=== PATIENT | male | born 1955 | race Caucasian/White ===

== ENCOUNTER 2016-06-12 17:06 | Inpatient (IN) | payer OTHER ==
[~2016-06-12] VITALS: Ht 175.3 cm; Wt 74.0 kg
[2016-06-12 18:47] LABS: BASO % 0.2 %; BASO ABS # 0.02 K/uL (0-0.2); COMPLETE YES; EOS % 0.6 %; HEMATOCRIT 36.5 % (42-52); IG% 0.2 %; LYMPH % 11.5 %; LYMPH ABS # 1.44 K/uL (1.2-3.4); MEAN CELL VOLUME 87.5 fL (80-100); MEAN CORPUSCULAR HEMOGLOBIN 28.1 pg (25-34); MEAN CORPUSCULAR HGB CONC 32.1 g/dl (32-36); MEAN PLATELET VOLUME 10.6 fL (7.4-10.4); MONO % 7.5 %; PLATELET COUNT 231 K/uL (130-400); RED BLOOD COUNT 4.17 M/uL (4.7-6.1); WHITE BLOOD COUNT 12.47 K/uL (4.8-10.8)
[2016-06-12 18:54] LABS: BLOOD UREA NITROGEN 25 mg/dl (7-18); BUN/CREATININE RATIO 23.1 (10-20); CALCIUM 11.1 mg/dl (8.5-10.1); CARBON DIOXIDE 31 mmol/L (21-32); CHLORIDE 102 mmol/L (98-107); GLUCOSE 113 mg/dl (70-99); POTASSIUM 4.3 mmol/L (3.5-5.1); SODIUM 140 mmol/L (136-145)
--- NOTE | 2016-06-12 19:02 | DIAGNOSTIC IMAGING REPORT ---
CHEST ONE VIEW PORTABLE CLINICAL HISTORY: Chest Pain dyspnea COMPARISON STUDY: None Findings Mild cardiomegaly. Prior median sternotomy. Lungs are clear. IMPRESSION: Negative chest. Electronically signed by: James Deutsch M.D. 06/12/2016 7:01 PM Dictated Date/Time: 06/12/2016 7:00 PM
[2016-06-12] MEDS ORDERED: OPTIRAY 320 IV PRN (19:15)
[2016-06-12] MEDS ORDERED: CETI10TA84 PO (19:32)
[2016-06-12] MEDS ORDERED: SERT-234 PO (19:32)
[2016-06-12] MEDS ORDERED: FRS/40 PO (19:32)
[2016-06-12] MEDS ORDERED: BUPR150T5 PO (19:32)
[2016-06-12] MEDS ORDERED: ATOR-24 PO (19:32)
[2016-06-12] MEDS ORDERED: PSEU60TA80 PO (19:32)
[2016-06-12] MEDS ORDERED: FLUT1INH INH (19:32)
[2016-06-12] MEDS ORDERED: PRVHFAIN INH (19:32)
[2016-06-12] MEDS ORDERED: ALBINS NEB (19:32)
[2016-06-12] MEDS ORDERED: POTA20TA13 PO (19:32)
[2016-06-12] MEDS ORDERED: PLV75 PO (19:32)
[2016-06-12] MEDS ORDERED: METO25TA56 PO (19:32)
[2016-06-12] MEDS ORDERED: OMEP40CA41 PO (19:32)
[2016-06-12] MEDS ORDERED: ASPI81TA28 PO (19:32)
--- NOTE | 2016-06-12 19:55 | DIAGNOSTIC IMAGING REPORT ---
CHEST CTA for PULMONARY ARTERIES CT DOSE: 364.65 mGy.cm HISTORY: Chest pain dyspnea TECHNIQUE: Multiaxial CT images of the chest were performed following the intravenous administration of contrast to evaluate the pulmonary arteries. Maximal intensity projection images were also obtained. COMPARISON STUDY: None. FINDINGS: There is a normal caliber thoracic aorta with no evidence for dissection. There is no evidence for pulmonary embolus. No pleural effusions. No pneumothorax. The liver and spleen are unremarkable. No mediastinal or hilar lymphadenopathy. The central airways are patent. Mild bibasilar atelectatic change. Mild apical pleural fibrotic change. IMPRESSION: No evidence for pulmonary embolus. Prior median sternotomy. Lungs are grossly clear. Electronically signed by: James Deutsch M.D. 06/12/2016 7:52 PM Dictated Date/Time: 06/12/2016 7:51 PM
[2016-06-12] MEDS ORDERED: ASPIRIN 324 MG CHEW PO STA (20:13)
[2016-06-12] MEDS ORDERED: GI COCKTAIL PO ONE (20:15)
[2016-06-12] MEDS ORDERED: ALUMINUM/MAGNESIUM/SIMETH (MAALOX MAX) 30 ML UDC ONE (20:59)
[2016-06-12] MEDS ORDERED: LIDOCAINE HCL 2% VISC SOLN 20 ML UDC ONE (20:59)
--- NOTE | 2016-06-12 22:53 | History and Physical ---
History & Physical Date & Time of Service: Jun 12, 2016 at 22:52 Chief Complaint: Triple Bypass 06/01, Wheezing, Sob, Chest Pain Primary Care Physician: Ben Tavarez MD History of Present Illness Source: patient The patient is a 60-year-old male who underwent a CABG 3 on 05/01/2016 at the [facility] in [place]. He reports that he started developing a cough and shortness of breath about 2 days ago when exposed to his who has a bronchitis, and reports that the shortness of breath is similar to what led to his bypass surgery. He is a former smoker. He recently saw his PCP for worsening reflux symptoms and was started on Prilosec. He has a questionable diagnosis of COPD. The patient was referred to the emergency department tonight by his cardiothoracic surgeon Dr. Bernal. He has had intermittent swelling in the right leg where the vein harvesting was performed, for which he has been kept on Lasix. Social History Smoking Status: Former Smoker Smokeless Tobacco Use: No Alcohol Use: none Drug Use: none Multi-Drug Resistant Organisms History of MDRO: No Allergies Uncoded Allergies: LATEX-NO (Allergy, Unknown, 05/23/02) N (Allergy, Unknown, 04/06/02) NKDA (Allergy, Unknown, 04/06/02) Home Medications Scheduled Aspirin (Aspirin Ec), 81 MG PO DAILY Atorvastatin (Lipitor), 40 MG PO DAILY Bupropion Hcl (Bupropion Hcl Xl), 150 MG PO DAILY Cetirizine (Zyrtec), 10 MG PO DAILY Clopidogrel Bisulfate (Clopidogrel), 75 MG PO DAILY Fluticasone Furoate-Vilanterol (Breo Ellipta), 1 PUFF INH DAILY Furosemide (Lasix), 40 MG PO DAILY Metoprolol Tartrate (Lopressor) (Lopressor), 12.5 MG PO BID Omeprazole (Prilosec), 40 MG PO DAILY Potassium Chloride Microencaps (Potassium Chloride Er), 20 MEQ PO DAILY Pseudoephedrine-Guaifenesin (Mucinex D), 1 TAB PO DAILY Sertraline (Zoloft), 200 MG PO DAILY Scheduled PRN Albuterol (Ventolin Hfa), 2 PUFFS INH QID PRN for SOB/Wheezing Albuterol Sulf (Albuterol Sulfate), 2.5 MG NEB BID PRN for COPD Review of Systems The patient denies chest pain, palpitations, vision change, hearing change, sore throat, fevers, chills, sweats, weight change, fatigue, nausea, vomiting, abdominal pain, pelvic pain, blood in urine or stool, dysuria, urinary frequency or urgency, lightheadedness, dizziness, headache, memory loss, rash, abnormal bruising or bleeding, imbalance, focal or generalized weakness, numbness or tingling in arms or legs, arthralgias or myalgias, back or neck pain , night sweats, or allergy symptoms. The review of systems is otherwise negative other than for that already noted above, and at least 10 systems have been reviewed. Physical Exam Vital Signs Date Time Temp Pulse Resp B/P Pulse Ox O2 Delivery O2 Flow Rate FiO2 06/12/16 22:06 69 18 94 06/12/16 22:00 119/88 06/12/16 21:36 76 15 92 06/12/16 21:30 130/89 06/12/16 21:06 84 20 94 06/12/16 21:00 130/81 06/12/16 20:57 78 22 106/66 93 Room Air 06/12/16 20:55 106/66 06/12/16 19:36 83 19 06/12/16 19:30 120/81 06/12/16 19:06 67 13 92 06/12/16 19:02 74 06/12/16 19:00 135/85 06/12/16 17:15 36.6 110 20 138/86 95 Room Air The patient is awake, well-developed and adequately nourished, alert and oriented 3, normocephalic and atraumatic, lying in bed and in no acute distress. HEENT--PERRL, EOMI, mucous membranes and oropharynx normal. Neck--supple, no JVD or bruits, thyroid normal, trachea midline, no adenopathy. Heart--normal S1 and S2, no extra beats, no murmurs, rubs or gallops. Lungs--few coarse breath sounds and scattered wheezes bilaterally, no respiratory distress, no accessory muscle use. Abdomen--normal bowel sounds and soft, nontender and nondistended, no hernias or masses, no organomegaly. Extremities--no cyanosis, clubbing or edema. There are good distal pulses b/l. Dermatologic--normal skin turgor, normal color, warm and dry, no abnormal lymph nodes, no rash. Neurologic--cranial nerves II through XII grossly intact, motor and sensory examination normal. Rheumatologic--normal range of motion, nontender, muscles and joints. Psychiatric--normal affect. Diagnostics Laboratory Results Results Past 24 Hours Test 06/12/16 18:18 Range/Units White Blood Count 12.47 4.8-10.8 K/uL Red Blood Count 4.17 4.7-6.1 M/uL Hemoglobin 11.7 14.0-18.0 g/dL Hematocrit 36.5 42-52 % Mean Corpuscular Volume 87.5 80-100 fL Mean Corpuscular Hemoglobin 28.1 25-34 pg Mean Corpuscular Hemoglobin Concent 32.1 32-36 g/dl Platelet Count 231 130-400 K/uL Mean Platelet Volume 10.6 7.4-10.4 fL Neutrophils (%) (Auto) 80.0 % Lymphocytes (%) (Auto) 11.5 % Monocytes (%) (Auto) 7.5 % Eosinophils (%) (Auto) 0.6 % Basophils (%) (Auto) 0.2 % Neutrophils # (Auto) 9.96 1.4-6.5 K/uL Lymphocytes # (Auto) 1.44 1.2-3.4 K/uL Monocytes # (Auto) 0.94 0.11-0.59 K/uL Eosinophils # (Auto) 0.08 0-0.5 K/uL Basophils # (Auto) 0.02 0-0.2 K/uL RDW Standard Deviation 47.6 36.4-46.3 fL RDW Coefficient of Variation 14.8 11.5-14.5 % Immature Granulocyte % (Auto) 0.2 % Immature Granulocyte # (Auto) 0.03 0.00-0.02 K/uL D-Dimer 740 0-500 ug/L FEU Sodium Level 140 136-145 mmol/L Potassium Level 4.3 3.5-5.1 mmol/L Chloride Level 102 98-107 mmol/L Carbon Dioxide Level 31 21-32 mmol/L Anion Gap 7.0 3-11 mmol/L Blood Urea Nitrogen 25 7-18 mg/dl Creatinine 1.10 0.60-1.40 mg/dl Est Creatinine Clear Calc Drug Dose 72.3 ml/min Estimated GFR () 84.7 Estimated GFR (Non- 73.1 BUN/Creatinine Ratio 23.1 10-20 Random Glucose 113 70-99 mg/dl Calcium Level 11.1 8.5-10.1 mg/dl Total Bilirubin 0.5 0.2-1 mg/dl Direct Bilirubin 0.1 0-0.2 mg/dl Aspartate Amino Transf (AST/SGOT) 53 15-37 U/L Alanine Aminotransferase (ALT/SGPT) 47 12-78 U/L Alkaline Phosphatase 97 45-117 U/L Total Creatine Kinase 377 39-308 U/L Creatine Kinase MB 7.6 0.5-3.6 ng/ml Creatine Kinase MB Ratio 2.0 0-3.0 Troponin I < 0.015 0-0.045 ng/ml Total Protein 7.9 6.4-8.2 gm/dl Albumin 4.1 3.4-5.0 gm/dl Diagnostic Radiology Patient Name: ANASTASIA CONTI Unit Number: [id number] Dictated: 06/12/161899 Transcribed: 06/12/161899 MS Printed Date/Time: [~ rep prt dt]/[~ rep prt tm] [~ rep ct labl] - [~ rep ct ivnm] [facility] [place] [address] Dictated: 06/12/161899 Transcribed: 06/12/161899 MS Printed Date/Time: [~ rep prt dt]/[~ rep prt tm] [~ rep ct labl] - [~ rep ct ivnm] [~ rep ct add3]] CHEST ONE VIEW PORTABLE CLINICAL HISTORY: Chest Pain dyspnea COMPARISON STUDY: None Findings Mild cardiomegaly. Prior median sternotomy. Lungs are clear. IMPRESSION: Negative chest. Electronically signed by: James Deutsch M.D. 06/12/2016 7:01 PM Dictated Date/Time: 06/12/2016 7:00 PM The status of this report is Signed. Draft = Not yet reviewed or approved by Radiologist. Signed = Reviewed and approved by Radiologist. <AttendingPhy></AttendingPhy> <FamilyPhy>Ben Tavarez MD</FamilyPhy> < PrimaryPhy>Ben Tavarez MD</PrimaryPhy> <UnitNumber>[id number]</UnitNumber> <VisitNumber>[id number]</VisitNumber> <PatientName>ANASTASIA CONTI</ PatientName> <DateOfBirth>1955</DateOfBirth> <Location>[facility]</Location> < ServiceDate>06/12/16</ServiceDate> <MNE>ESINDI</MNE> <OrderingPhy>Aram Caldwell DO</OrderingPhy> <OrderingPhyMNE>f rep ord dr appiah</OrderingPhyMNE> < DictatingPhyMNE>f rep dict dr appiah</DictatingPhyMNE> <CCListMNE>f rep ct mne</ CCListMNE> <AdmittingPhyMNE>f pt admit dr appiah</AdmittingPhyMNE> <AttendingPhyMNE >f pt attend dr appiah</AttendingPhyMNE> <ConsultingPhyMNE>f pt consult dr appiah</ConsultingPhyMNE> <FamilyPhyMNE>f pt fam dr appiah</FamilyPhyMNE> <OtherPhyMNE>f pt other dr appiah</OtherPhyMNE> < PrimaryPhyMNE>f pt prim care dr appiah</PrimaryPhyMNE> <ReferringPhyMNE>f pt referring dr appiah</ReferringPhyMNE> Patient Name: ANASTASIA CONTI Unit Number: [id number] Dictated: 06/12/161950 Transcribed: 06/12/161950 MS Printed Date/Time: [~ rep prt dt]/[~ rep prt tm] [~ rep ct labl] - [~ rep ct ivnm] [facility] [place] [place] [address] Dictated: 06/12/161950 Transcribed: 06/12/161950 MS Printed Date/Time: [~ rep prt dt]/[~ rep prt tm] [~ rep ct labl] - [~ rep ct ivnm] [~ rep ct add3]] CHEST CTA for PULMONARY ARTERIES CT DOSE: 364.65 mGy.cm HISTORY: Chest pain dyspnea TECHNIQUE: Multiaxial CT images of the chest were performed following the intravenous administration of contrast to evaluate the pulmonary arteries. Maximal intensity projection images were also obtained. COMPARISON STUDY: None. FINDINGS: There is a normal caliber thoracic aorta with no evidence for dissection. There is no evidence for pulmonary embolus. No pleural effusions. No pneumothorax. The liver and spleen are unremarkable. No mediastinal or hilar lymphadenopathy. The central airways are patent. Mild bibasilar atelectatic change. Mild apical pleural fibrotic change. IMPRESSION: No evidence for pulmonary embolus. Prior median sternotomy. Lungs are grossly clear. Electronically signed by: James Deutsch M.D. 06/12/2016 7:52 PM Dictated Date/Time: 06/12/2016 7:51 PM The status of this report is Signed. Draft = Not yet reviewed or approved by Radiologist. Signed = Reviewed and approved by Radiologist. <AttendingPhy></AttendingPhy> <FamilyPhy>Ben Tavarez MD</FamilyPhy> < PrimaryPhy>Ben Tavarez MD</PrimaryPhy> <UnitNumber>[id number]</UnitNumber> <VisitNumber>[id number]</VisitNumber> <PatientName>SUSHILAANASTASIA DAISY</ PatientName> <DateOfBirth>1955</DateOfBirth> <Location>[facility]</Location> < ServiceDate>06/12/16</ServiceDate> <MNE>ESINDI</MNE> <OrderingPhy>Aram Caldwell DO</OrderingPhy> <OrderingPhyMNE>f rep ord dr appiah</OrderingPhyMNE> < DictatingPhyMNE>f rep dict dr appiah</DictatingPhyMNE> <CCListMNE>f rep ct mne</ CCListMNE> <AdmittingPhyMNE>f pt admit dr appiah</AdmittingPhyMNE> <AttendingPhyMNE >f pt attend dr appiah</AttendingPhyMNE> <ConsultingPhyMNE>f pt consult dr appiah</ConsultingPhyMNE> <FamilyPhyMNE>f pt fam dr appiah</FamilyPhyMNE> <OtherPhyMNE>f pt other dr appiah</OtherPhyMNE> < PrimaryPhyMNE>f pt prim care dr appiah</PrimaryPhyMNE> <ReferringPhyMNE>f pt referring dr appiah</ReferringPhyMNE> EKG EKG shows normal sinus rhythm at 79 bpm, there are no acute ST-T changes. Impression Assessment and Plan Status post CABG 3 on 05/01/2016--the patient will be admitted to the telemetry unit, for serial cardiac enzymes, cardiac rhythm monitoring and a 2-D echocardiogram with Dopplers. He reports that the shortness of breath is somewhat similar to previously surgery, however, may cardiac concern at this time might be that of pericardial effusion. Continue aspirin 81 mg by mouth daily, clopidogrel 75 mg by mouth daily, furosemide 40 mg by mouth daily, metoprolol tartrate 12.5 mg by mouth twice a day, and potassium chloride ER 20 mEq by mouth daily. Bronchitis/presumptive underlying COPD--start ceftriaxone 1 g IV daily, levofloxacin 500 mg IV every 24 hours, Xopenex/Atrovent nebulizers to use every 6 hours while awake to 2 hours when necessary. We will hold Mucinex D, Breo Ellipta, and albuterol HFA. Hypercalcemia-- calcium on admission labs was 11.1. Review of his most recent labs from 2 weeks ago showed calcium in the mid 9 range. We'll repeat a BMP now , and if the calcium is still elevated, will start pamidronate 60 mg IV. Hypercholesterolemia--continue atorvastatin 40 mg by mouth daily. Anxiety/depression--continue bupropion XL 150 mg by mouth daily and sertraline 200 mg by mouth daily. GERD--continue omeprazole 40 mg by mouth daily. Level of Care Telemetry Advanced Directives Existing Advance Directive: No Existing Living Will: No Existing Power of [employer]: No Resuscitation Status FULL RESUSCITATION VTE Prophylaxis VTE Risk Assessment Done? Y/N: Yes Risk Level: Moderate Given or contraindicated: SCD's Social Service Consult None Apply
[2016-06-13] VITALS (12 sets, daily range): BP systolic 106–135; BP diastolic 67–82; PULSE 76–87; TEMP 36.2–37.2; O2SAT 88–97; Ht 175.3 cm; Wt 74.0 kg
[2016-06-13] MEDS ORDERED: ZOLPIDEM TARTRATE 5 MG TAB PO PRN (00:15)
[2016-06-13] MEDS ORDERED: NITROGLYCERIN 0.4 MG SL PER TAB CHARGE SL PRN (00:15)
[2016-06-13] MEDS ORDERED: ACETAMINOPHEN 325 MG TAB PO PRN (00:15)
[2016-06-13] MEDS ORDERED: IPRATROPIUM BROMIDE NEB SOLN 0.02% 2.5 ML VIAL INH PRN (00:45)
[2016-06-13] MEDS ORDERED: LEVALBUTEROL 1.25MG/0.5ML NEB INH PRN (00:45)
[2016-06-13] MEDS: ONDANSETRON INJ 2 MG/ML 2 ML VIAL IV PRN (01:29)
[2016-06-13] MEDS: CEFTRIAXONE SOD INJ 1 GM in DEXTROSE 5% ADD-VANTAGE 50ML 50 ML IV SCH (01:29)
--- NOTE | 2016-06-13 01:34 | EMERGENCY ROOM VISIT NOTE ---
History Report prepared by Sophie: Vijay Hagen Under the Supervision of: Dr. Aram Caldwell D.O. First contact with patient: 18:20 Chief Complaint: RESPIRATORY PROBLEMS Stated Complaint: TRIPLE BYPASS 06/01, WHEEZING, SOB, CHEST PAIN Nursing Triage Summary: SOB, and heart burn - Seen by PCP for COPD flare yesterday, ABX, steroid and lasix. Recent CABG History of Present Illness The patient is a 60 year old male who presents to the Emergency Room with complaints of worsened respiratory problems beginning 2 days ago. He recently had a CABG about one month ago, and notes that his shortness of breath feels similar to shortness of breath prior to surgery though with the absence of any chest tightness. He has not had to use his nebulizer after the surgery until now , but notes that it helps relieve his symptoms somewhat, and was effective in relieving his symptoms prior to surgery as well. He admits to a history of hypertension and high cholesterol, but denies any history of heart failure. He admits to being a former smoker. The patient adds that he recently saw his PCP for worsened heartburn and he has his dosage of Prilosec. He notes his heartburn feels like his normal heartburn, but is just worse in severity. His heartburn does not feel like an MT. He has had reflux for the last 2 to 3 days, along with a depressed appetite. He reports he was diagnosed with COPD but he notes that specialist told him that he does not have COPD. He has not had any wheezing after his recent CABG. The patient was referred to the ER by his surgeon, Dr. Bernal, at the [facility] in [place]. He adds that he has had a dry cough for the past 2 to 3 days. The patient denies having any difficulty with his bowel, and also denies kidney issues, but reports feeling gassy and having the hiccups. He also reports some swelling to his right leg where the vein was used for his recent CABG. Source of History: patient Onset: 2 days ago Position: other (lungs) Quality: other Timing: other (persistent) Modifying Factors (Relieving): other (nebulizer) Note: Patient reports heartburn, and swelling to his right leg. Review of Systems See HPI for pertinent positives & negatives. A total of 10 systems reviewed and were otherwise negative. Past Medical & Surgical Medical Problems: (1) Bronchitis (2) Hypercalcemia Surgical Problems: (1) Hx of CABG Family History No pertinent family history stated. Social History Smoking Status: Former Smoker Current/Historical Medications Scheduled Aspirin (Aspirin Ec), 81 MG PO DAILY Atorvastatin (Lipitor), 40 MG PO DAILY Bupropion Hcl (Bupropion Hcl Xl), 150 MG PO DAILY Cetirizine (Zyrtec), 10 MG PO DAILY Clopidogrel Bisulfate (Clopidogrel), 75 MG PO DAILY Fluticasone Furoate-Vilanterol (Breo Ellipta), 1 PUFF INH DAILY Furosemide (Lasix), 40 MG PO DAILY Metoprolol Tartrate (Lopressor) (Lopressor), 12.5 MG PO BID Omeprazole (Prilosec), 40 MG PO DAILY Potassium Chloride Microencaps (Potassium Chloride Er), 20 MEQ PO DAILY Pseudoephedrine-Guaifenesin (Mucinex D), 1 TAB PO DAILY Sertraline (Zoloft), 200 MG PO DAILY Scheduled PRN Albuterol (Ventolin Hfa), 2 PUFFS INH QID PRN for SOB/Wheezing Albuterol Sulf (Albuterol Sulfate), 2.5 MG NEB BID PRN for COPD Allergies Uncoded Allergies: LATEX-NO (Allergy, Unknown, 05/23/02) N (Allergy, Unknown, 04/06/02) NKDA (Allergy, Unknown, 04/06/02) Physical Exam Vital Signs Date Time Temp Pulse Resp B/P Pulse Ox O2 Delivery O2 Flow Rate FiO2 06/12/16 22:30 77 136/85 93 06/12/16 22:06 69 18 94 06/12/16 22:00 119/88 06/12/16 21:36 76 15 92 06/12/16 21:30 130/89 06/12/16 21:06 84 20 94 06/12/16 21:00 130/81 06/12/16 20:57 78 22 106/66 93 Room Air 06/12/16 20:55 106/66 06/12/16 19:36 83 19 06/12/16 19:30 120/81 06/12/16 19:06 67 13 92 06/12/16 19:02 74 06/12/16 19:00 135/85 06/12/16 17:15 36.6 110 20 138/86 95 Room Air Physical Exam GENERAL: Sitting in bed, disheveled, no acute distress, nontoxic. EYE EXAM: normal conjunctiva OROPHARYNX: no exudate, no erythema, lips, buccal mucosa, and tongue normal and mucous membranes are moist NECK: Two bruises on upper thoracic region bilaterally. CHEST: Midline incision and ports - clean, dry, and intact. No discharge. LUNGS: Clear to auscultation. Normal chest wall mechanics HEART: no murmurs, S1 normal and S2 normal ABDOMEN: abdomen soft, non-tender, normo-active bowel sounds, no masses, no rebound or guarding. BACK: Back is symmetrical on inspection and there is no deformity, no midline tenderness, no CVA tenderness. SKIN: no rashes and no bruising UPPER EXTREMITIES: upper extremities are grossly normal. LOWER EXTREMITIES: Faint pitting edema bilaterally NEURO EXAM: Normal sensorium, cranial nerves II-XII grossly intact, normal speech, no gross weakness of arms, no gross weakness of legs. No drift. Finger to nose intact. Gross sensation intact. Medical Decision & Procedures ER Provider Diagnostic Interpretation: Radiology results as stated below per my review and the radiologist's interpretation: CHEST ONE VIEW PORTABLE Findings Mild cardiomegaly. Prior median sternotomy. Lungs are clear. IMPRESSION: Negative chest. Electronically signed by: James Deutsch M.D. 06/12/2016 7:01 PM Dictated Date/Time: 06/12/2016 7:00 PM CHEST CTA for PULMONARY ARTERIES FINDINGS: There is a normal caliber thoracic aorta with no evidence for dissection. There is no evidence for pulmonary embolus. No pleural effusions. No pneumothorax. The liver and spleen are unremarkable. No mediastinal or hilar lymphadenopathy. The central airways are patent. Mild bibasilar atelectatic change. Mild apical pleural fibrotic change. IMPRESSION: No evidence for pulmonary embolus. Prior median sternotomy. Lungs are grossly clear. Electronically signed by: James Deutsch M.D. 06/12/2016 7:52 PM Dictated Date/Time: 06/12/2016 7:51 PM Laboratory Results 06/12/16 18:18 Red Blood Count 4.17, Mean Corpuscular Volume 87.5, Mean Corpuscular Hemoglobin 28.1, Mean Corpuscular Hemoglobin Concent 32.1, Mean Platelet Volume 10.6, Neutrophils (%) (Auto) 80.0, Lymphocytes (%) (Auto) 11.5, Monocytes (%) (Auto) 7.5, Eosinophils (%) (Auto) 0.6, Basophils (%) (Auto) 0.2, Neutrophils # (Auto) 9.96, Lymphocytes # (Auto) 1.44, Monocytes # (Auto) 0.94, Eosinophils # (Auto) 0.08, Basophils # (Auto) 0.02 Test 06/12/16 18:18 06/13/16 00:02 White Blood Count 12.47 K/uL (4.8-10.8) Red Blood Count 4.17 M/uL (4.7-6.1) Hemoglobin 11.7 g/dL (14.0-18.0) Hematocrit 36.5 % (42-52) Mean Corpuscular Volume 87.5 fL (80-100) Mean Corpuscular Hemoglobin 28.1 pg (25-34) Mean Corpuscular Hemoglobin Concent 32.1 g/dl (32-36) Platelet Count 231 K/uL (130-400) Mean Platelet Volume 10.6 fL (7.4-10.4) Neutrophils (%) (Auto) 80.0 % Lymphocytes (%) (Auto) 11.5 % Monocytes (%) (Auto) 7.5 % Eosinophils (%) (Auto) 0.6 % Basophils (%) (Auto) 0.2 % Neutrophils # (Auto) 9.96 K/uL (1.4-6.5) Lymphocytes # (Auto) 1.44 K/uL (1.2-3.4) Monocytes # (Auto) 0.94 K/uL (0.11-0.59) Eosinophils # (Auto) 0.08 K/uL (0-0.5) Basophils # (Auto) 0.02 K/uL (0-0.2) RDW Standard Deviation 47.6 fL (36.4-46.3) RDW Coefficient of Variation 14.8 % (11.5-14.5) Immature Granulocyte % (Auto) 0.2 % Immature Granulocyte # (Auto) 0.03 K/uL (0.00-0.02) D-Dimer 740 ug/L FEU (0-500) Est Creatinine Clear Calc Drug Dose 72.3 ml/min Total Bilirubin 0.5 mg/dl (0.2-1) Direct Bilirubin 0.1 mg/dl (0-0.2) Aspartate Amino Transf (AST/SGOT) 53 U/L (15-37) Alanine Aminotransferase (ALT/SGPT) 47 U/L (12-78) Alkaline Phosphatase 97 U/L (45-117) Total Protein 7.9 gm/dl (6.4-8.2) Albumin 4.1 gm/dl (3.4-5.0) Creatine Kinase MB Ratio (0-3.0) Laboratory results per my review. Medications Administered Medications (Trade) Dose Ordered Sig/Vinicio Route Start Time Stop Time Status Last Admin Dose Admin Aspirin (Aspirin Chew) 324 mg NOW STAT PO 06/12/16 20:13 06/12/16 20:56 DC 06/12/16 20:58 324 MG Lidocaine HCl (Viscous Lidocaine 2% Soln) 20 ml STK-MED ONCE .ROUTE 06/12/16 20:59 06/12/16 21:00 DC 06/12/16 20:59 10 ML Al Hydrox/Mg Hydrox/Simethicone (Maalox Max Susp) 30 ml STK-MED ONCE .ROUTE 06/12/16 20:59 06/12/16 21:00 DC 06/12/16 20:59 30 ML ECG Indication: other (respiratory problems) Rate (beats per minute): 79 Rhythm: sinus rhythm Findings: no ectopy, other (normal axis) ED Course ED COURSE: Vital signs were reviewed and showed tachycardic The patients medical record was reviewed The above diagnostic studies were performed and reviewed. ED treatments and interventions as stated above. 1825: The patient was evaluated in room C4. A complete history and physical examination was performed. 2013: Ordered Aspirin 324 mg PO. 2014: Ordered Ci Cocktail 24 ml PO. 2119: I reviewed the patient's case with Dr. Franklin. He will evaluate the patient for further management. 2124: Upon reevaluation, the patient is doing well.I discussed my findings with the patient and he understands and agrees with the treatment plan. Based on the patients age, coexisting illnesses, exam and lab findings the decision to treat as an inpatient was made. The patient remained stable while under my care. The patient will be evaluated for further management. 2199: I reviewed the patient's case with Dr. Bourgeois. She recommends observing the patient overnight. Medical Decision Differential diagnoses includes but is not limited to pneumonia, bronchitis, COPD/Asthma exacerbation, pneumothorax, pulmonary embolism, congestive heart failure, acute coronary syndrome Patient is a 60-year-old male status post CABG on May 01 that presents the ER for shortness of breath which feels similar to his shortness of breath prior to his CABG. He does not to a dry cough for the past 2 days. He is referred in by his cardiothoracic surgeon. EKG was nondiagnostic. Chest x-ray was unremarkable. Troponin was negative. CK-MB was elevated. Patient was given aspirin. CT PE was performed with a positive d-dimer but was negative. With the elevation in his CK-MB and these symptoms feeling similar but not as bad to prior to him having a CABG I discussed case with his current thoracic surgeon. He agreed that this gentleman should be observed overnight. Discussed with our internal medicine and they were agreeable as well. Calcium was also elevated. Patient was updated bedside resting comfortably. Consults Time Called: 2104 Consulting Physician: Dr. Franklin, [facility] [place] Returned Call: [phone] I reviewed the patient's case with Dr. Franklin. He will evaluate the patient for further management. Additional Consults: Time Called: 2154 Consulted Physician: Dr. Bourgeois, Cardiothoracic Surgeon, [facility] Returned Call: 2199 Additional Comments: I reviewed the patient's case with Dr. Bourgeois. She recommends observing the patient overnight. Impression Primary Impression: SOB (shortness of breath) Additional Impressions: Burning chest pain Hypercalcemia Scribe Attestation The scribe's documentation has been prepared under my direction and personally reviewed by me in its entirety. I confirm that the note above accurately reflects all work, treatment, procedures, and medical decision making performed by me. Departure Information Dispostion Being Evaluated By Hospitalist Referrals No Doctor, Assigned (PCP) Patient Instructions My [facility] Problem Qualifiers
[2016-06-13] MEDS: IPRATROPIUM BROMIDE NEB SOLN 0.02% 2.5 ML VIAL INH SCH ×4 (01:52→19:59)
[2016-06-13] MEDS: LEVALBUTEROL 1.25MG/0.5ML NEB INH SCH ×4 (01:52→19:59)
[2016-06-13 01:55] LABS: BLOOD UREA NITROGEN 28 mg/dl (7-18); BUN/CREATININE RATIO 21.6 (10-20); CARBON DIOXIDE 34 mmol/L (21-32); CHLORIDE 97 mmol/L (98-107); CKMB/CK RATIO 2.2 (0-3.0); GLUCOSE 121 mg/dl (70-99); POTASSIUM 4.1 mmol/L (3.5-5.1); SODIUM 139 mmol/L (136-145)
[2016-06-13] MEDS: LEVOFLOXACIN / D5W 500 MG in PREMIXED IN D5W 100 ML IV SCH (01:55)
[2016-06-13] MEDS ORDERED: LEVALBUTEROL/IPRATROPIUM NEB INH SCH (03:00)
[2016-06-13] MEDS ORDERED: PAMIDRONATE DISODIUM IV INJ 60 MG in SODIUM CHLORIDE 0.9% 1000ML 1,000 ML IV SCH (05:00)
[2016-06-13] MEDS: CLOPIDOGREL BISULFATE 75 MG TAB PO SCH (07:21)
[2016-06-13] MEDS: ASPIRIN 81 MG ECTAB PO SCH (07:22)
[2016-06-13] MEDS: POTASSIUM CHLORIDE 20 MEQ TABCR PO SCH (07:22)
[2016-06-13] MEDS: METOPROLOL TARTRATE 25 MG TAB PO SCH ×2 (07:22→21:36)
[2016-06-13] MEDS: BuPROPion XL 150 MG TABCR PO SCH (07:22)
[2016-06-13] MEDS: SERTRALINE HCL 100 MG TAB PO SCH (07:22)
[2016-06-13] MEDS: CETIRIZINE HCL 10 MG TAB PO SCH (07:22)
[2016-06-13] MEDS: FUROSEMIDE 40 MG TAB PO SCH (07:22)
[2016-06-13] MEDS: PANTOprazole SOD 40 MG TAB PO SCH (07:23)
[2016-06-13] MEDS: ATORVASTATIN 20 MG TAB PO SCH (07:23)
[2016-06-13 09:00] LABS: CKMB/CK RATIO 2.6 (0-3.0)
[2016-06-13 12:10] LABS: CHOLESTEROL/HDL RATIO 4.2
--- NOTE | 2016-06-13 12:20 | CARDIOLOGY CONSULTATION ---
DATE OF CONSULTATION: 06/13/2016 DATE OF CONSULTATION: 06/13/2016. REASON FOR CONSULTATION: Chest pain, recent coronary artery bypass surgery. CONSULTATION REQUESTED BY: Dr. Franklin. HISTORY OF PRESENT ILLNESS: Mr. Mckeon is a 60-year-old man with a history of coronary artery disease status post 3-vessel CABG on 05/01/2016 at the [facility] (by Dr. Diego, JOSE to ramus, EVELYNE to LAD, vein graft to PDA), questionable COPD, GERD, hypertension who returns to the Emergency Department yesterday in the setting of worsening shortness of breath, cough and burning discomfort reminiscent of prior reflux. The patient states that initially underwent bypass surgery earlier in the year due to progressive shortness of breath symptoms. Prior workup done at the [facility] and [facility]. The patient underwent bypass surgery without complications. Post procedure has been at home, has been doing well up until the last several days. He states that his prior to this had symptoms suggestive of bronchitis. Over the last several days he has had increased cough, some increased shortness of breath. In addition, he has felt burning discomfort when he lays flat and when he eats meals despite being on increased dose of Prilosec. Denies any other daniel chest pain. Denies palpitations. Denies presyncope. States that shortness of breath was the primary symptom which led to the diagnosis of his coronary artery disease and as a result is concerned. Has been having some mild lower extremity swelling at the site of the GSV harvest, has been on Lasix, but has noticed no significant change in lower extremity edema currently. In the Emergency Department, the patient was hemodynamically stable and satting in the low 90s on room air. EKG showed normal sinus rhythm with no dynamic ST changes. Cardiac enzymes were negative. Chest x-ray was unremarkable and a CT scan after positive D-dimer was negative for PE. The patient has been treated overnight with IV fluids, bronchodilators and antibiotics and this morning states that his breathing feels better. PAST MEDICAL HISTORY: 1. Coronary artery disease status post 3-vessel CABG 05/11/[address] Diego [facility], EVELYNE to LAD, JOSE to ramus, vein graft to PDA. 2. Hypertension. 3. COPD. 4. GERD. 5. Depression. 6. Allergic rhinitis. SOCIAL HISTORY: He is a former smoker, quit 20 years ago. Continues to use smokeless tobacco. Denies alcohol or drug use. ALLERGIES: ALLERGIC TO LATEX. HOME MEDICATIONS: Include aspirin 81, atorvastatin 40, bupropion, Zyrtec, Plavix 75 mg daily, fluticasone vilanterol inhaler, furosemide 40, metoprolol 12.5 b.i.d., omeprazole 40, potassium, Mucinex, sertraline. FAMILY HISTORY: No family history of premature coronary disease or sudden cardiac . REVIEW OF SYSTEMS: Ten point review of systems completed and otherwise negative unless stated in HPI. PHYSICAL EXAMINATION: VITAL SIGNS: Temperature 37.2, pulse 79, blood pressure 125/80, he is satting 94% on room air. GENERAL: The patient appears comfortable and well in no acute distress. HEAD, EYES, EARS, NOSE, AND THROAT: Sclerae are anicteric. Oropharynx is clear. Mucous membranes are moist. NECK: Supple. He has no bruits. He has no jugular venous distention. LUNGS: Clear to auscultation bilaterally with faint expiratory wheezes. CARDIAC: Regular rate and rhythm. He has no appreciable murmurs, rubs or gallops. His sternal incision site is well healing with no palpable click and minimal tenderness. ABDOMEN: Soft and nontender. He has well-healed incisions over his epigastric region. EXTREMITIES: Warm. He has no significant lower extremity edema. He has intact distal pulses throughout. The harvest site for GSV appears normal with no significant surrounding erythema or induration. No significant lower extremity edema. SKIN: Shows no rashes or lesions. NEUROLOGIC: Nonfocal. PSYCHIATRIC: Alert and oriented x3. Mood and affect is appropriate. LABORATORY DATA: White blood cell count 12.5, hemoglobin 11.7, platelets of 231. D-dimer 740. Troponins have been negative x3. Sodium of 139, potassium 4.1, bicarbonate 34, BUN of 28, creatinine of 1.3. LFTs within normal limits except for elevated AST at 53. IMAGING: Chest x-ray showed no acute cardiopulmonary process. A CT scan showed normal caliber thoracic aorta. No pleural effusions, no pneumothorax, no evidence of dissection, mild apical pleural fibrotic changes and no evidence of pulmonary embolism. Lungs are otherwise grossly clear. EKG shows sinus rhythm with no dynamic ST changes. Ventricular rate of 79. IMPRESSION AND PLAN: 1. Mild dyspnea, question chronic obstructive pulmonary disease exacerbation/bronchitis. 2. Coronary artery disease status post recent CABG little over 1 month ago. 3. Hypertension. 4. Gastroesophageal reflux disease. Overall, from a cardiovascular standpoint, the patient appears to be stable. No evidence of acute coronary syndrome and no evidence of significant heart failure on exam today. Imaging thus far has been unremarkable for any PE dissection or significant pericardial or pleural disease. Does have a repeat echocardiogram pending and will follow up on results. Overall, suspicion that current symptoms are related to new cardiac disease is low and I agree with continued therapy for possible bronchitis/COPD exacerbation. Pending unremarkable echocardiogram feel the patient could safely be discharged home with [facility] as an outpatient. Thank you for allowing us to participate in the care of this patient. Please contact with any questions.
--- NOTE | 2016-06-13 13:08 | DIAGNOSTIC IMAGING REPORT ---
ABDOMEN 2 VIEWS CLINICAL HISTORY: bloating, abdominal discomfort COMPARISON STUDY: No previous studies for comparison. FINDINGS: There are several calcifications project over the left renal shadow, the largest of which measures 5 mm. Nephrolithiasis is suspected. There is no pathologic bowel dilatation. There is mild fecal retention. There are no transition zones indicate bowel obstruction. No free air is visualized. IMPRESSION: 1. Left-sided nephrolithiasis 2. Mild fecal retention 3. No evidence of bowel obstruction. No evidence of free air. Electronically signed by: Jose Forrester M.D. 06/13/2016 1:06 PM Dictated Date/Time: 06/13/2016 1:04 PM
[2016-06-13 13:16] LABS: BASO % 0.1 %; BASO ABS # 0.01 K/uL (0-0.2); COMPLETE YES; EOS % 0.8 %; HEMATOCRIT 36.2 % (42-52); IG% 0.2 %; LYMPH % 16.5 %; LYMPH ABS # 1.56 K/uL (1.2-3.4); MEAN CELL VOLUME 87.7 fL (80-100); MEAN CORPUSCULAR HEMOGLOBIN 27.8 pg (25-34); MEAN CORPUSCULAR HGB CONC 31.8 g/dl (32-36); MONO % 8.1 %; NEUT % 74.3 %; PLATELET COUNT 232 K/uL (130-400); RED BLOOD COUNT 4.13 M/uL (4.7-6.1); WHITE BLOOD COUNT 9.46 K/uL (4.8-10.8)
[2016-06-13 16:40] LABS: CKMB/CK RATIO 2.1 (0-3.0)
--- NOTE | 2016-06-13 18:14 | Progress Note ---
Subjective Date of Service: Jun 13, 2016. Subjective Pt evaluation today including: conversation w/ patient, physical exam, chart review, lab review, review of studies, review of inpatient medication list Pain: denies any pain Voiding: no voiding problems Patient is seen and examined by me. Patient denies chest pain, shortness of breath, dizziness, palpitation or loss of consciousness. Patient states he feels much better compared to yesterday. Patient breathing is much better. Patient denies any productive cough. Patient denies fever, chills, rigors and sweats. Patient denies blurry vision and headache. Patient is still complaining of symptoms that of epigastric pain with regurgitation and heartburn. Patient denies any blood in the stool. Patient denies any difficulty with swallowing. Problem List Medical Problems: (1) Burning chest pain Status: Acute (2) SOB (shortness of breath) Status: Acute Review of Systems Constitutional: No chills, No fever, No sweats, No weakness, No weight loss Respiratory: No cough, No dyspnea at rest, No shortness of breath, No sputum, No wheezing Cardiac: No PND, No chest pain, No edema, No palpitations Abdomen: + see HPI, No diarrhea, No vomiting Musculoskeletal: No joint pain, No muscle pain, No swelling Neurologic: No memory loss, No numbness/tingling, No vertigo, No weakness Psychiatric: No anhedonism, No anxiety, No depression symptoms, No insomnia Heme: No abnormal bleeding/bruising Endo: No fatigue Skin: No rash Medications Medications (Trade) Dose Ordered Sig/Vinicio Route Start Time Stop Time Status Last Admin Dose Admin Aspirin (Aspirin Chew) 324 mg NOW STAT PO 06/12/16 20:13 06/12/16 20:56 DC 06/12/16 20:58 324 MG Lidocaine HCl (Viscous Lidocaine 2% Soln) 20 ml STK-MED ONCE .ROUTE 06/12/16 20:59 06/12/16 21:00 DC 06/12/16 20:59 10 ML Al Hydrox/Mg Hydrox/Simethicone (Maalox Max Susp) 30 ml STK-MED ONCE .ROUTE 06/12/16 20:59 06/12/16 21:00 DC 06/12/16 20:59 30 ML Aspirin (Ecotrin Tab) 81 mg DAILY PO 06/13/16 09:00 07/13/16 08:59 06/13/16 07:22 81 MG Bupropion HCl (Wellbutrin-Xl Tab) 150 mg DAILY PO 06/13/16 09:00 07/13/16 08:59 06/13/16 07:22 150 MG Cetirizine HCl (zyrTEC TAB) 10 mg DAILY PO 06/13/16 09:00 07/13/16 08:59 06/13/16 07:22 10 MG Clopidogrel Bisulfate (plAVix TAB) 75 mg DAILY PO 06/13/16 09:00 07/13/16 08:59 06/13/16 07:21 75 MG Furosemide (Lasix Tab) 40 mg DAILY PO 06/13/16 09:00 07/13/16 08:59 06/13/16 07:22 40 MG Metoprolol Tartrate (Lopressor Tab) 12.5 mg BID PO 06/13/16 09:00 07/13/16 08:59 06/13/16 07:22 12.5 MG Potassium Chloride (Klor-Con Tab) 20 meq DAILY PO 06/13/16 09:00 07/13/16 08:59 06/13/16 07:22 20 MEQ Sertraline HCl (Zoloft Tab) 200 mg DAILY PO 06/13/16 09:00 07/13/16 08:59 06/13/16 07:22 200 MG Pantoprazole Sodium (Protonix Tab) 40 mg QAM PO 06/13/16 09:00 07/13/16 08:59 06/13/16 07:23 40 MG Ondansetron HCl 4 mg 4 mg Q6H PRN IV 06/13/16 00:15 07/13/16 00:14 06/13/16 01:29 4 MG Ceftriaxone Sodium 1 gm/ Dextrose 50 ml @ 100 mls/hr Q24H IV 06/13/16 01:00 06/20/16 00:59 06/13/16 01:29 100 MLS/HR Levofloxacin/Prmx (Levaquin / D5W/ Premixed D5W) 100 ml @ 100 mls/hr Q24H IV 06/13/16 02:00 06/20/16 01:59 06/13/16 01:55 100 MLS/HR Ipratropium [place] (Atrovent 0.02% 0.5MG/2.5ML Neb) 0.5 mg Q6R INH 06/13/16 03:00 07/13/16 02:59 06/13/16 14:05 0.5 MG Levalbuterol 1.25 mg 1.25 mg Q6R INH 06/13/16 03:00 07/13/16 02:59 06/13/16 14:05 1.25 MG Pamidronate Disodium/Sodium Chloride (Aredia IV Inj/ Nss 1000ml) 1,020 ml @ 250 mls/hr Q4H5M IV 06/13/16 05:00 06/13/16 09:04 DC 06/13/16 05:31 250 MLS/HR Objective Vital Signs Date Time Temp Pulse Resp B/P Pulse Ox O2 Delivery O2 Flow Rate FiO2 06/13/16 16:00 Nasal Cannula 2.0 06/13/16 15:29 36.8 82 18 107/67 90 Room Air 06/13/16 14:05 87 14 92 Nasal Cannula 2.0 06/13/16 12:00 Nasal Cannula 2.0 06/13/16 11:37 36.2 78 19 122/74 92 Room Air 06/13/16 08:00 Nasal Cannula 2.0 06/13/16 07:30 88 Room Air 06/13/16 07:29 76 14 94 Nasal Cannula 2.0 06/13/16 07:18 37.2 79 22 125/80 92 Nasal Cannula 2.0 06/13/16 04:02 Room Air 06/13/16 02:59 36.6 85 20 106/70 97 Nasal Cannula 2.0 06/13/16 01:53 80 14 93 Room Air 06/13/16 00:30 Room Air 06/13/16 00:30 36.8 80 20 132/82 96 Room Air 06/13/16 00:13 115/71 06/12/16 22:30 77 136/85 93 06/12/16 22:06 69 18 94 06/12/16 22:00 119/88 06/12/16 21:36 76 15 92 06/12/16 21:30 130/89 06/12/16 21:06 84 20 94 06/12/16 21:00 130/81 06/12/16 20:57 78 22 106/66 93 Room Air 06/12/16 20:55 106/66 06/12/16 19:36 83 19 06/12/16 19:30 120/81 06/12/16 19:06 67 13 92 06/12/16 19:02 74 06/12/16 19:00 135/85 Physical Exam General Appearance: no apparent distress Neck: supple, no adenopathy, no JVD Respiratory/Chest: lungs clear, no respiratory distress, + wheezing (bilateral lower lung coarse breath sounds with expiratory wheezings no ronchi appreciated on the exam) Cardiovascular: regular rate, rhythm, no edema, no gallop, no JVD, no murmur Abdomen: normal bowel sounds, non tender, soft Extremities: normal range of motion, non-tender, normal inspection, no pedal edema 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, alert, normal mood/affect, oriented x 3 Skin: no rash Lymphatic: no adenopathy Laboratory Results Last 24 Hours Test 06/12/16 18:18 06/13/16 01:17 06/13/16 06:40 06/13/16 06:45 White Blood Count 12.47 K/uL 9.46 K/uL Red Blood Count 4.17 M/uL 4.13 M/uL Hemoglobin 11.7 g/dL 11.5 g/dL Hematocrit 36.5 % 36.2 % Mean Corpuscular Volume 87.5 fL 87.7 fL Mean Corpuscular Hemoglobin 28.1 pg 27.8 pg Mean Corpuscular Hemoglobin Concent 32.1 g/dl 31.8 g/dl Platelet Count 231 K/uL 232 K/uL Mean Platelet Volume 10.6 fL 11.0 fL Neutrophils (%) (Auto) 80.0 % 74.3 % Lymphocytes (%) (Auto) 11.5 % 16.5 % Monocytes (%) (Auto) 7.5 % 8.1 % Eosinophils (%) (Auto) 0.6 % 0.8 % Basophils (%) (Auto) 0.2 % 0.1 % Neutrophils # (Auto) 9.96 K/uL 7.02 K/uL Lymphocytes # (Auto) 1.44 K/uL 1.56 K/uL Monocytes # (Auto) 0.94 K/uL 0.77 K/uL Eosinophils # (Auto) 0.08 K/uL 0.08 K/uL Basophils # (Auto) 0.02 K/uL 0.01 K/uL RDW Standard Deviation 47.6 fL 47.3 fL RDW Coefficient of Variation 14.8 % 14.8 % Immature Granulocyte % (Auto) 0.2 % 0.2 % Immature Granulocyte # (Auto) 0.03 K/uL 0.02 K/uL D-Dimer 740 ug/L FEU Sodium Level 140 mmol/L 139 mmol/L Potassium Level 4.3 mmol/L 4.1 mmol/L Chloride Level 102 mmol/L 97 mmol/L Carbon Dioxide Level 31 mmol/L 34 mmol/L Anion Gap 7.0 mmol/L 8.0 mmol/L Blood Urea Nitrogen 25 mg/dl 28 mg/dl Creatinine 1.10 mg/dl 1.30 mg/dl Est Creatinine Clear Calc Drug Dose 72.3 ml/min 61.2 ml/min Estimated GFR () 84.7 69.2 Estimated GFR (Non- 73.1 59.7 BUN/Creatinine Ratio 23.1 21.6 Random Glucose 113 mg/dl 121 mg/dl Calcium Level 11.1 mg/dl 11.0 mg/dl Total Bilirubin 0.5 mg/dl Direct Bilirubin 0.1 mg/dl Aspartate Amino Transf (AST/SGOT) 53 U/L Alanine Aminotransferase (ALT/SGPT) 47 U/L Alkaline Phosphatase 97 U/L Total Creatine Kinase 377 U/L 239 U/L 138 U/L Creatine Kinase MB 7.6 ng/ml 5.2 ng/ml 3.6 ng/ml Creatine Kinase MB Ratio 2.0 2.2 2.6 Troponin I < 0.015 ng/ml < 0.015 ng/ml < 0.015 ng/ml Total Protein 7.9 gm/dl Albumin 4.1 gm/dl Triglycerides Level 171 mg/dl Cholesterol Level 216 mg/dl HDL Cholesterol 52 mg/dl LDL Cholesterol, Calculated 130 mg/dl VLDL Cholesterol, Calculated 34 mg/dl Cholesterol/HDL Ratio 4.2 Test 06/13/16 06:46 06/13/16 15:55 25-Hydroxy Vitamin D Total 12.4 ng/ml Parathyroid Hormone (Intact) 15.4 pg/mL Total Creatine Kinase 112 U/L Creatine Kinase MB 2.3 ng/ml Creatine Kinase MB Ratio 2.1 Troponin I < 0.015 ng/ml Assessment and Plan Status post CABG 3 on 05/01/2016--patient is doing very well from cardiac standpoint if you. Cardiology consult was obtained. Cardiac markers are unremarkable 3. EKG does not show any acute ST changes such as ST depression and elevation. Patient is stable from cardiac standpoint to discharge home to follow up with the cardiology as an outpatient basis. Continue aspirin 81 mg by mouth daily, clopidogrel 75 mg by mouth daily, furosemide 40 mg by mouth daily, metoprolol tartrate 12.5 mg by mouth twice a day, and potassium chloride ER 20 mEq by mouth daily. Bronchitis/presumptive underlying COPD-improvement in wheezing and shortness of breath we will cont ceftriaxone 1 g IV daily, levofloxacin 500 mg IV every 24 hours, Xopenex/Atrovent nebulizers to use every 6 hours while awake to 2 hours when necessary. If his symptoms continue to improve by tomorrow we will DC home on oral steroids taper as well as antibiotics. Chest x-ray showed no acute cardiopulmonary process. A CT scan showed normal caliber thoracic aorta. No pleural effusions, no pneumothorax, no evidence of dissection, mild apical pleural fibrotic changes and no evidence of pulmonary embolism. Lungs are otherwise grossly clear. Hypercalcemia-- calcium on admission labs was 11.1. Today calcium is 11.0, slightly declined. Review of his most recent labs from 2 weeks ago showed calcium in the mid 9 range. We'll repeat a BMP in morning and if the calcium is still elevated, will start pamidronate 60 mg IV. Hypercholesterolemia--continue atorvastatin 40 mg by mouth daily. Anxiety/depression--continue bupropion XL 150 mg by mouth daily and sertraline 200 mg by mouth daily. GERD--continue omeprazole 40 mg by mouth daily. Continued [facility] stay due to: multiple IV medications needed Discharge planning: home
[2016-06-14] MEDS: CEFTRIAXONE SOD INJ 1 GM in DEXTROSE 5% ADD-VANTAGE 50ML 50 ML IV SCH (01:16)
[2016-06-14] MEDS: LEVOFLOXACIN / D5W 500 MG in PREMIXED IN D5W 100 ML IV SCH (01:47)
[2016-06-14 02:04] VITALS: PULSE 75; O2SAT 95
[2016-06-14] MEDS: IPRATROPIUM BROMIDE NEB SOLN 0.02% 2.5 ML VIAL INH SCH (02:04)
[2016-06-14] MEDS: LEVALBUTEROL 1.25MG/0.5ML NEB INH SCH (02:04)
[2016-06-14] MEDS: ONDANSETRON INJ 2 MG/ML 2 ML VIAL IV PRN ×2 (02:13→07:39)
[2016-06-14 03:10] VITALS: BP 106/65; PULSE 82; TEMP 36.6; O2SAT 95
[2016-06-14 06:32] LABS: BASO % 0.6 %; BASO ABS # 0.05 K/uL (0-0.2); COMPLETE YES; EOS % 8.6 %; HEMATOCRIT 37.3 % (42-52); IG% 0.2 %; LYMPH % 23.6 %; LYMPH ABS # 2.11 K/uL (1.2-3.4); MEAN CORPUSCULAR HEMOGLOBIN 27.7 pg (25-34); MEAN CORPUSCULAR HGB CONC 31.1 g/dl (32-36); MEAN PLATELET VOLUME 10.2 fL (7.4-10.4); MONO % 10.4 %; NEUT % 56.6 %; PLATELET COUNT 197 K/uL (130-400); RED BLOOD COUNT 4.19 M/uL (4.7-6.1); WHITE BLOOD COUNT 8.94 K/uL (4.8-10.8)
[2016-06-14 07:11] VITALS: BP 115/68; PULSE 74; TEMP 36.7; O2SAT 91
[2016-06-14 07:18] LABS: BUN/CREATININE RATIO 16.9 (10-20); CREATININE 1.4 mg/dl (0.60-1.40); MAGNESIUM 2.2 mg/dl (1.8-2.4); POTASSIUM 3.5 mmol/L (3.5-5.1)
[2016-06-14] MEDS: BuPROPion XL 150 MG TABCR PO SCH (07:32)
[2016-06-14] MEDS: CETIRIZINE HCL 10 MG TAB PO SCH (07:32)
[2016-06-14] MEDS: METOPROLOL TARTRATE 25 MG TAB PO SCH (07:33)
[2016-06-14] MEDS: ATORVASTATIN 20 MG TAB PO SCH (07:33)
[2016-06-14] MEDS: SERTRALINE HCL 100 MG TAB PO SCH (07:33)
[2016-06-14] MEDS: PANTOprazole SOD 40 MG TAB PO SCH (07:33)
[2016-06-14] MEDS: CLOPIDOGREL BISULFATE 75 MG TAB PO SCH (07:33)
[2016-06-14] MEDS: POTASSIUM CHLORIDE 20 MEQ TABCR PO SCH (07:34)
[2016-06-14] MEDS: ASPIRIN 81 MG ECTAB PO SCH (07:34)
[2016-06-14] MEDS: FUROSEMIDE 40 MG TAB PO SCH (07:34)
[2016-06-14] MEDS ORDERED: IPRATROPIUM BROMIDE HFA INHALER INH ONE (07:55)
[2016-06-14] MEDS ORDERED: LEValbuterol HFA 15GM INHALER INH ONE (07:55)
[2016-06-14 08:00] VITALS: BP 115/68; PULSE 74; TEMP 36.7; O2SAT 91
--- NOTE | 2016-06-14 08:20 | Discharge Instructions ---
Discharge Instructions Date of Service Jun 14, 2016. Admission Reason for Admission: Bronchitis, Hypercalcemia Discharge Discharge Diagnosis / Problem: Bronchitis, Hypercalemia, GERD Discharge Goals Goal(s): Improve function, Increase independence, Improve disease control, Learn about illness, Therapeutic intervention, Prevent Disease Progression Activity Recommendations Activity Limitations: as noted below Lifting Limitations: gradually increase as tolerated Exercise/Sports Limitations: gradually increase as tolerated May Resume Sexual Activity: when tolerated Shower/Bathe: no limitations Driving or Machine Use: resume 1 day after discharge . Instructions / Follow-Up Instructions / Follow-Up follow up with PCP, Dr Tavarez Current Hospital Diet Patient's current hospital diet: AHA Diet (Heart Healthy) Discharge Diet Recommended Diet: AHA Diet (Heart Healthy) Fluid Restriction: None Procedures Procedures Performed: none Pending Studies Studies pending at discharge: no Laboratory Results Lipid Panel Test 06/13/16 01:17 Range/Units Triglycerides Level 171 H 0-150 mg/dl Cholesterol Level 216 H 0-200 mg/dl HDL Cholesterol 52 mg/dl Cholesterol/HDL Ratio 4.2 LDL Cholesterol, Calculated 130 mg/dl Medical Emergencies . Who to Call and When: Medical Emergencies: If at any time you feel your situation is an emergency, please call 911 immediately. . Non-Emergent Contact Non-Emergency issues call your: Primary Care Provider Call Non-Emergent contact if: temperature is above 100.5 If SOB get worsen please call your PCP, or go to the Er . Past History Medical & Surgical History: (1) Bronchitis (2) SOB (shortness of breath) (3) Hypercalcemia . "Provider Documentation" section prepared by Ben Tavarez. . Dermatology Technician Recommendations Dermatology Technician Recommendations: none VTE Core Measure Inpt VTE Proph given/why not?: SCD's
[2016-06-14] MEDS ORDERED: LEValbuterol HFA 15GM INHALER INH SCH (12:00)
[2016-06-14] MEDS ORDERED: IPRATROPIUM BROMIDE HFA INHALER INH SCH (12:00)
--- NOTE | 2016-06-14 13:44 | Discharge Summary ---
Discharge Summary Date of Service Jun 14, 2016. Discharge Summary Admission Date: Jun 13, 2016 at 00:02 Discharge Date: Jun 14, 2016 Discharge Disposition: Home Principal Diagnosis: Acute Bronchitis Problems/Secondary Diagnoses: Hypercalcemia GERD Procedures: none Consultations: cardiology Medication Reconciliation Continued Medications: Albuterol (Ventolin Hfa) 60 Puffs/5400 Mcg Aers 2 PUFFS INH QID PRN for SOB/Wheezing Albuterol Sulf (Albuterol Sulfate) 2.5 Mg/3 Ml Nebu 2.5 MG NEB BID PRN for COPD Aspirin (Aspirin Ec) 81 Mg Tab 81 MG PO DAILY Atorvastatin (Lipitor) 40 Mg Tab 40 MG PO DAILY, TAB Bupropion Hcl (Bupropion Hcl Xl) 150 Mg Tab 150 MG PO DAILY, TAB Cetirizine (Zyrtec) 10 Mg Tab 10 MG PO DAILY, TAB Clopidogrel Bisulfate (Clopidogrel) 75 Mg Tab 75 MG PO DAILY Fluticasone Furoate-Vilanterol (Breo Ellipta) 1 Inh Inh 1 PUFF INH DAILY 100-25 MCG Furosemide (Lasix) 40 Mg Tab 40 MG PO DAILY, TAB Metoprolol Tartrate (Lopressor) (Lopressor) 25 Mg Tab 12.5 MG PO BID, TAB Omeprazole (Prilosec) 40 Mg Cap 40 MG PO DAILY, CAP Potassium Chloride Microencaps (Potassium Chloride Er) 20 Meq Tab 20 MEQ PO DAILY, TAB Pseudoephedrine-Guaifenesin (Mucinex D) 1 Tab Tab 1 TAB PO DAILY, TAB Sertraline (Zoloft) 100 Mg Tab 200 MG PO DAILY, TAB Referrals At Discharge Follow up Referrals: Family Practice Referral - Within 2 Weeks with Ben Tavarez MD Discharge Exam Patient is seen and examined by me. Patient feels very good at the day of discharge. Patient denies chest pain, shortness of breath, dizziness, palpitation or loss of consciousness. Patient denies abdominal pain and urinary symptoms. Nursing does not report any acute event last night. 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 Patient states that he has a good appetite and sleep. Patient GERD symptoms improved. Patient denies blurry vision and headache. Patient was given an Rx prescription for Levaquin as well as Protonix. Review of Systems: Constitutional: No chills, No fatigue, No fever, No sweats, No weakness Eyes: No discharge, No redness ENT: No sore throat Respiratory: No cough, No dyspnea at rest, No dyspnea on exertion, No shortness of breath, No wheezing Cardiovascular: No chest pain, No edema, No orthopnea, No palpitations Abdomen: No constipation, No diarrhea, No nausea, No pain, No vomiting Genitourinary - Male: No hematuria, No urinary frequency, No urinary retention, No urinary urgency Neurologic: No balance problems, No memory loss, No numbness/tingling Psychiatric: No anxiety, No depression symptoms Endocrine: No fatigue Hematologic / Lymphatic: No abnormal bleeding/bruising Integumentary: No rash Physical Exam: General Appearance: WD/WN, no apparent distress Eyes: EOMI Neck: supple, no adenopathy Respiratory/Chest: lungs clear, normal breath sounds, no respiratory distress, no accessory muscle use Cardiovascular: regular rate, rhythm, no edema, no gallop, no JVD, no murmur , normal peripheral pulses Abdomen / GI: normal bowel sounds, non tender, soft Extremities: normal inspection, no pedal edema, normal range of motion 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 Cardiology consult was obtained. Cardiac markers are unremarkable 3. EKG does not show any acute ST changes such as ST depression and elevation. Patient is stable from cardiac standpoint to discharge home to follow up with the cardiology as an outpatient basis. Continue aspirin 81 mg by mouth daily, clopidogrel 75 mg by mouth daily, furosemide 40 mg by mouth daily, metoprolol tartrate 12.5 mg by mouth twice a day, and potassium chloride ER 20 mEq by mouth daily. Bronchitis/presumptive underlying COPD-improvement in wheezing and shortness of breath we will cont ceftriaxone 1 g IV daily, levofloxacin 500 mg IV every 24 hours, Xopenex/Atrovent nebulizers to use every 6 hours while awake to 2 hours when necessary. If his symptoms continue to improve by tomorrow we will DC home on oral steroids taper as well as antibiotics. Chest x-ray showed no acute cardiopulmonary process. A CT scan showed normal caliber thoracic aorta. No pleural effusions, no pneumothorax, no evidence of dissection, mild apical pleural fibrotic changes and no evidence of pulmonary embolism. Lungs are otherwise grossly clear. We discharged home patient a 500 mg of Levaquin for 5 more days to complete the course. Hypercalcemia-- calcium on admission labs was 11.1. Calcium trended down from 11.0 to 9.0. Patient calcium is back to the baseline. Hypercholesterolemia--continue atorvastatin 40 mg by mouth daily. Anxiety/depression--continue bupropion XL 150 mg by mouth daily and sertraline 200 mg by mouth daily. GERD--continue omeprazole 40 mg by mouth daily. We prescribed patient Protonix 40 mg by mouth daily 30 minutes before breakfast. We advised patient to follow- up with PCP if symptoms persist 8-12 weeks. Possible endoscopy as an outpatient if symptoms still persist. Total Time Spent: Greater than 30 minutes This includes examination of the patient, discharge planning, medication reconciliation, and communication with other providers. Discharge Instructions Please refer to the electronic Patient Visit Report (Discharge Instructions) for additional information. Follow-Up Last Resulted CBC 06/14/16 06:20 Red Blood Count 4.19, Mean Corpuscular Volume 89.0, Mean Corpuscular Hemoglobin 27.7, Mean Corpuscular Hemoglobin Concent 31.1, Mean Platelet Volume 10.2, Neutrophils (%) (Auto) 56.6, Lymphocytes (%) (Auto) 23.6, Monocytes (%) (Auto) 10.4, Eosinophils (%) (Auto) 8.6, Basophils (%) (Auto) 0.6, Neutrophils # (Auto ) 5.06, Lymphocytes # (Auto) 2.11, Monocytes # (Auto) 0.93, Eosinophils # (Auto ) 0.77, Basophils # (Auto) 0.05 Last Resulted BMP 06/14/16 06:20 Additional Copies To Ben Tavarez MD
== END 2016-06-14 10:37 | disposition home or self-care (01) | DRG 203 ==
LOC: ENRESERVDT → ENRESERVTM → C.EDB 17:07 → C.2T 06-13 00:02
PROVIDERS: ADMIT Hospitalist; ATTEND Hospitalist
DX: J20.9 Acute bronchitis, unspecified (principal); Z95.1 Presence of aortocoronary bypass graft; I25.10 Atherosclerotic heart disease of native coronary artery without angina pectoris; K21.9 Gastro-esophageal reflux disease without esophagitis; I10 Essential (primary) hypertension; J44.9 Chronic obstructive pulmonary disease, unspecified; F32.9 Major depressive disorder, single episode, unspecified; J30.9 Allergic rhinitis, unspecified; Z79.82 Long term (current) use of aspirin; E83.52 Hypercalcemia; E78.00 Pure hypercholesterolemia, unspecified; F41.9 Anxiety disorder, unspecified; Z87.891 Personal history of nicotine dependence

== ENCOUNTER 2017-03-09 15:07 | Inpatient (IN) | payer OTHER ==
[~2017-03-09] VITALS: Ht 175.3 cm; Wt 87.5 kg
[~2017-03-09 15:07] MED LIST: ALBINS NEB; ASPI81TA28 PO; ATOR-24 PO; BUPR150T5 PO; CETI10TA84 PO; FLUT1INH INH; FRS/40 PO; METO25TA56 PO; OMEP40CA41 PO; PLV75 PO; POTA20TA13 PO; PRVHFAIN INH; PSEU60TA80 PO; SERT-234 PO
[2017-03-09] MEDS ORDERED: OPTIRAY 320 IV PRN ×2 (15:30→18:30)
--- NOTE | 2017-03-09 15:33 | EMERGENCY ROOM VISIT NOTE ---
History First contact with patient: 15:16 Chief Complaint: ABDOMINAL PAIN Stated Complaint: ABDOMINAL PAIN,HEAVY BREATHING,REFERRED BY MD History of Present Illness The patient is a 61 year old male who presents to the Emergency Room with complaints of abdominal bloating and difficulty taking a deep breath. The patient reports that he has had abdominal bloating for a few months which worsened yesterday. He states that his abdomen feels very tight and he has epigastric pain. He rates the overall discomfort a 6/10. He reports a decreased appetite and mild nausea. He has difficulty taking a deep breath which he feels is due to the bloating. He does report a history of COPD but states this is well controlled with inhalers. He denies a cough or wheezing. The patient additionally reports that he has a rash all over his body which she developed one week ago. It is not itchy or painful. He denies any new environmental exposures, medications, detergents or soaps. The patient denies any history of similar symptoms. He denies any history of abdominal issues other than kidney stones or abdominal surgeries. His bowel movements have been normal. He denies any vomiting, fevers/chills or urinary symptoms. He denies any alcohol or drug use. He denies any history of liver problems. He has a history of three-vessel CABG and denies any other past medical problems. Review of Systems A complete 10 point review of systems was reviewed with the patient with pertinent positives and negatives as per history of present illness. All else were negative. Past Medical/Surgical History Medical Problems: (1) Acute pancreatitis (2) Bronchitis (3) COPD (chronic obstructive pulmonary disease) (4) History of kidney stones (5) Hypercalcemia Surgical Problems: (1) Hx of CABG Social History Smoking Status: Former Smoker Alcohol Use: none Drug Use: none Marital Status: Housing Status: lives with significant other Occupation Status: retired Current/Historical Medications Scheduled Aspirin (Aspirin Ec), 81 MG PO DAILY Atorvastatin (Lipitor), 40 MG PO DAILY Cetirizine (Zyrtec), 10 MG PO DAILY Clopidogrel Bisulfate (Clopidogrel), 75 MG PO DAILY Fluticasone Furoate-Vilanterol (Breo Ellipta), 1 PUFF INH DAILY Ipratropium-Albuterol (Combivent Respimat), 1 PUFFS INH QID Lisinopril (Zestril), 5 MG PO DAILY Metoprolol Tartrate (Lopressor) (Lopressor), 12.5 MG PO BID Omeprazole (Prilosec), 20 MG PO BID Sertraline (Zoloft), 200 MG PO DAILY Scheduled PRN Albuterol Sulf (Albuterol Sulfate), 2.5 MG NEB BID PRN for COPD Physical Exam Vital Signs Date Time Temp Pulse Resp B/P (MAP) Pulse Ox O2 Delivery O2 Flow Rate FiO2 03/09/17 19:24 144/99 03/09/17 18:17 108 23 95 03/09/17 18:12 104 24 96 03/09/17 17:42 111 22 95 03/09/17 17:12 100 26 95 03/09/17 17:07 101 19 95 03/09/17 16:52 134/92 03/09/17 16:11 106 03/09/17 15:11 36.8 121 22 157/100 97 Room Air Physical Exam VITALS: Vitals are noted on the nurse's note and reviewed by myself. Vital signs stable. GENERAL: This 61-year-old male, in no acute distress, nondiaphoretic. SKIN: There is a mildly erythematous, blanchable diffuse rash to the abdomen, back, and bilateral upper extremities. There are erythematous, nonblanchable lesions consistent with petechiae to bilateral lower extremities. EARS: External auditory canals clear, tympanic membranes pearly zimmerman without erythema or effusion bilaterally. EYES: Pupils equal round and reactive to light and accommodation. Conjunctivae without injection, sclerae without icterus. MOUTH: Mucous membranes moist. Tonsils are not enlarged. Pharynx without erythema or exudate. NECK: Supple without nuchal rigidity. No lymphadenopathy. HEART: Regular rate and rhythm without murmurs gallops or rubs. LUNGS: Clear to auscultation bilaterally without wheezes, rales or rhonchi. No retractions or accessory muscle use. ABDOMEN: The abdomen appears significantly distended. Positive bowel sounds x 4. Abdomen is distended and mildly tender in the epigastric region. NEURO: Patient was alert and oriented to person place and time. Medical Decision & Procedures ER Provider Diagnostic Interpretation: CHEST ONE VIEW PORTABLE FINDINGS: There are median sternotomy wires and mediastinal surgical clips. Cardiac size is within normal limits. There is no evidence for pulmonary edema. No pneumothorax or pleural effusion is noted. There is no consolidation to suggest pneumonia. IMPRESSION: No acute cardiopulmonary findings. ABD/PELVIS IV CONTRAST ONLY FINDINGS: Lung bases are clear. Liver is uniform. Pancreas demonstrates diffuse fatty replacement. Spleen is unremarkable. The adrenal glands are normal. The kidneys enhance uniformly. Mild thickening of the fat at the level of the root of the mesentery. Slight fascial plane thickening of the paracolic gutter regions. Subtle wall thickening of the colon versus artifact. No evidence for abscess or collection. The appendix is normal. No free fluid within the pelvic cul-de-sac. IMPRESSION: 1. Possible minimal colitis with slight reactive thickening of the mesentery. 2. Diffuse fatty replacement of the pancreas. 3. Normal appendix. 4. Fatty replacement of the liver. Laboratory Results 03/09/17 15:35 Red Blood Count 5.10, Mean Corpuscular Volume 88.0, Mean Corpuscular Hemoglobin 31.2, Mean Corpuscular Hemoglobin Concent 35.4, Mean Platelet Volume 10.1, Neutrophils (%) (Auto) 77.4, Lymphocytes (%) (Auto) 15.6, Monocytes (%) (Auto) 5.5, Eosinophils (%) (Auto) 0.8, Basophils (%) (Auto) 0.4, Neutrophils # (Auto) 8.84, Lymphocytes # (Auto) 1.78, Monocytes # (Auto) 0.63, Eosinophils # (Auto) 0.09, Basophils # (Auto) 0.04 03/09/17 15:35 Test 03/09/17 15:35 03/09/17 15:43 White Blood Count 11.41 K/uL (4.8-10.8) Red Blood Count 5.10 M/uL (4.7-6.1) Hemoglobin 15.9 g/dL (14.0-18.0) Hematocrit 44.9 % (42-52) Mean Corpuscular Volume 88.0 fL (80-100) Mean Corpuscular Hemoglobin 31.2 pg (25-34) Mean Corpuscular Hemoglobin Concent 35.4 g/dl (32-36) Platelet Count 196 K/uL (130-400) Mean Platelet Volume 10.1 fL (7.4-10.4) Neutrophils (%) (Auto) 77.4 % Lymphocytes (%) (Auto) 15.6 % Monocytes (%) (Auto) 5.5 % Eosinophils (%) (Auto) 0.8 % Basophils (%) (Auto) 0.4 % Neutrophils # (Auto) 8.84 K/uL (1.4-6.5) Lymphocytes # (Auto) 1.78 K/uL (1.2-3.4) Monocytes # (Auto) 0.63 K/uL (0.11-0.59) Eosinophils # (Auto) 0.09 K/uL (0-0.5) Basophils # (Auto) 0.04 K/uL (0-0.2) RDW Standard Deviation 41.5 fL (36.4-46.3) RDW Coefficient of Variation 13.0 % (11.5-14.5) Immature Granulocyte % (Auto) 0.3 % Immature Granulocyte # (Auto) 0.03 K/uL (0.00-0.02) Prothrombin Time 10.7 SECONDS (9.0-12.0) Prothromb Time International Ratio 1.0 (0.9-1.1) Activated Partial Thromboplast Time 26.6 SECONDS (21.0-31.0) Partial Thromboplastin Ratio 1.0 D-Dimer 3590 ug/L FEU (0-500) Anion Gap 7.0 mmol/L (3-11) Est Creatinine Clear Calc Drug Dose 76.8 ml/min Estimated GFR () 82.3 Estimated GFR (Non- 71.0 BUN/Creatinine Ratio 9.4 (10-20) Calcium Level 9.0 mg/dl (8.5-10.1) Magnesium Level 1.8 mg/dl (1.8-2.4) Total Bilirubin 1.0 mg/dl (0.2-1) Direct Bilirubin 0.2 mg/dl (0-0.2) Aspartate Amino Transf (AST/SGOT) 23 U/L (15-37) Alanine Aminotransferase (ALT/SGPT) 46 U/L (12-78) Alkaline Phosphatase 97 U/L (45-117) Troponin I < 0.015 ng/ml (0-0.045) Pro-B-Type Natriuretic Peptide 695 pg/ml (0-900) Total Protein 7.7 gm/dl (6.4-8.2) Albumin 3.7 gm/dl (3.4-5.0) Lipase 6996 U/L (73-393) Triglycerides Level 263 mg/dl (0-150) Medications Administered Medications (Trade) Dose Ordered Sig/Vinicio Route Start Time Stop Time Status Last Admin Dose Admin Sodium Chloride 500 ml @ 999 mls/hr Q31M STAT IV 03/09/17 17:13 03/09/17 17:43 DC 03/09/17 18:05 999 MLS/HR Morphine Sulfate (MoRPHine SULFATE INJ) 3 mg Q3H PRN IV 03/09/17 20:00 03/23/17 19:59 03/09/17 23:44 3 MG Acetaminophen (Tylenol Tab) 650 mg Q4H PRN PO 03/09/17 20:00 04/08/17 19:59 03/10/17 00:59 650 MG ECG Indication: abdominal pain Rate (beats per minute): 106 Rhythm: normal sinus Findings: no acute ischemic change, no ectopy Change: no significant change ED Course The patient was evaluated as above. Labs were drawn and IV access was obtained. CT of the abdomen and pelvis was performed and read by radiology as above. Patient was reevaluated and findings were discussed. Case was discussed with the [facility], Dr. Murguia. They agreed to evaluate the patient for admission. Medical Decision Differential diagnosis includes pancreatitis, liver pathology, bowel instruction , ascites, heart failure, infection, colitis, among others. The patient is a 61-year-old male who presents today complaining of abdominal bloating and discomfort as well as difficulty taking a full breath. Labs revealed mild leukocytosis of 11.41. Lipase was found to be significantly elevated, at 6996. Patient has no history of pancreatitis. He adamantly denies any alcohol use. LFTs are within normal limits. Vital signs were stable and within normal limits other than mild tachycardia. Patient did seem very uncomfortable due to abdominal bloating and distention. CT did not show any evidence of acute pancreatitis, however I do feel he will require further workup/GI consultation. The case was discussed with the [facility] service who agreed to evaluate for admission. We did request d- dimer, which was found to be elevated. CT of the chest was ordered and pending at the time of admission. The patient's case was reviewed with Dr. Stone, ED attending physician, who agreed with my assessment and treatment plan. Medication Reconcilliation Current Medication List: was personally reviewed by me Blood Pressure Screening Patient's blood pressure: Elevated blood pressure Blood pressure disposition: Elevated BP felt to be situational Impression Primary Impression: Pancreatitis Departure Information Referrals No Doctor, Assigned (PCP) Patient Instructions My [facility]
[2017-03-09 15:46] LABS: BASO % 0.4 %; BASO ABS # 0.04 K/uL (0-0.2); EOS % 0.8 %; EOS ABS # 0.09 K/uL (0-0.5); HEMATOCRIT 44.9 % (42-52); HEMOGLOBIN 15.9 g/dL (14.0-18.0); IG# 0.03 K/uL (0.00-0.02); LYMPH % 15.6 %; LYMPH ABS # 1.78 K/uL (1.2-3.4); MEAN CORPUSCULAR HEMOGLOBIN 31.2 pg (25-34); MEAN CORPUSCULAR HGB CONC 35.4 g/dl (32-36); MEAN PLATELET VOLUME 10.1 fL (7.4-10.4); MONO % 5.5 %; MONO ABS # 0.63 K/uL (0.11-0.59); NEUT % 77.4 %; NEUT ABS # 8.84 K/uL (1.4-6.5); PLATELET COUNT 196 K/uL (130-400); RED CELL DISTRIBUTION WIDTH SD 41.5 fL (36.4-46.3); WHITE BLOOD COUNT 11.41 K/uL (4.8-10.8)
--- NOTE | 2017-03-09 15:49 | DIAGNOSTIC IMAGING REPORT ---
CHEST ONE VIEW PORTABLE CLINICAL HISTORY: Shortness of breath and bloating. COMPARISON STUDY: Chest radiograph and chest CT June 12, 2016. FINDINGS: There are median sternotomy wires and mediastinal surgical clips. Cardiac size is within normal limits. There is no evidence for pulmonary edema. No pneumothorax or pleural effusion is noted. There is no consolidation to suggest pneumonia. IMPRESSION: No acute cardiopulmonary findings. Electronically signed by: Sanjeev Robbins M.D. 03/09/2017 3:48 PM Dictated Date/Time: 03/09/2017 3:47 PM
[2017-03-09] MEDS ORDERED: PRLSR20 PO (15:55)
[2017-03-09 15:57] LABS: PTT PATIENT 26.6 SECONDS (21.0-31.0)
[2017-03-09] MEDS ORDERED: LISI-729 PO (15:58)
[2017-03-09] MEDS ORDERED: IPRA1AER2 INH (16:03)
[2017-03-09 16:11] LABS: ALBUMIN 3.7 gm/dl (3.4-5.0); ALT/SGPT 46 U/L (12-78); AST/SGOT 23 U/L (15-37); BLOOD UREA NITROGEN 11 mg/dl (7-18); CARBON DIOXIDE 25 mmol/L (21-32); CREATININE 1.12 mg/dl (0.60-1.40); GLUCOSE 132 mg/dl (70-99); POTASSIUM 3.3 mmol/L (3.5-5.1); SODIUM 138 mmol/L (136-145)
[2017-03-09 16:16] LABS: ALKALINE PHOSPHATASE 97 U/L (45-117); LIPASE 6996 U/L (73-393); TOTAL PROTEIN 7.7 gm/dl (6.4-8.2)
--- NOTE | 2017-03-09 16:52 | DIAGNOSTIC IMAGING REPORT ---
ABD/PELVIS IV CONTRAST ONLY CT DOSE: 828.44 mGycm HISTORY: Pain. Nausea. abdominal bloating, epigastric pain TECHNIQUE: Multiaxial CT images of the abdomen and pelvis were performed following the use of intravenous contrast. A dose lowering technique was utilized adhering to the principles of ALARA. COMPARISON STUDY: None. FINDINGS: Lung bases are clear. Liver is uniform. Pancreas demonstrates diffuse fatty replacement. Spleen is unremarkable. The adrenal glands are normal. The kidneys enhance uniformly. Mild thickening of the fat at the level of the root of the mesentery. Slight fascial plane thickening of the paracolic gutter regions. Subtle wall thickening of the colon versus artifact. No evidence for abscess or collection. The appendix is normal. No free fluid within the pelvic cul-de-sac. IMPRESSION: 1. Possible minimal colitis with slight reactive thickening of the mesentery. 2. Diffuse fatty replacement of the pancreas. 3. Normal appendix. 4. Fatty replacement of the liver. The above report was generated using voice recognition software. It may contain grammatical, syntax or spelling errors. Electronically signed by: James Deutsch M.D. 03/09/2017 4:51 PM Dictated Date/Time: 03/09/2017 4:46 PM
[2017-03-09] MEDS ORDERED: SODIUM CHLORIDE 0.9% 500ML 500 ML IV STA (17:13)
--- NOTE | 2017-03-09 19:02 | DIAGNOSTIC IMAGING REPORT ---
(CHEST FOR PE) ANGIO WITH CT DOSE: 554.66 mGycm HISTORY: Chest pain dyspnea TECHNIQUE: Multiaxial CT images of the chest were performed following the intravenous administration of contrast to evaluate the pulmonary arteries. Maximal intensity projection images were also obtained. A dose lowering technique was utilized adhering to the principles of ALARA. COMPARISON STUDY: None. FINDINGS: There is a normal caliber thoracic aorta with no evidence for dissection. There is no evidence for pulmonary embolus. No pleural effusions. No pneumothorax. The liver and spleen are unremarkable. No mediastinal or hilar lymphadenopathy. The central airways are patent. The lungs demonstrate a minimal parenchymal infiltrate right lower lobe. IMPRESSION: 1. No evidence for pulmonary embolus. 2. Small parenchymal infiltrate right base. The above report was generated using voice recognition software. It may contain grammatical, syntax or spelling errors. Electronically signed by: James Detusch M.D. 03/09/2017 7:00 PM Dictated Date/Time: 03/09/2017 6:58 PM
[2017-03-09] MEDS ORDERED: POLYETHYLENE (MIRALAX) 17 GM PACK PO PRN (20:00)
[2017-03-09] MEDS ORDERED: MAGNESIUM HYDROXIDE SUSP 30 ML UDC PO PRN (20:00)
[2017-03-09] MEDS ORDERED: ALBUTEROL 0.083% NEBU SOLN 3 ML VIAL INH PRN (20:00)
[2017-03-09] MEDS ORDERED: ONDANSETRON INJ 2 MG/ML 2 ML VIAL IV PRN (20:00)
--- NOTE | 2017-03-09 20:20 | History and Physical ---
History & Physical Date & Time of Service: Mar 09, 2017 at 20:01 Chief Complaint: Abdominal Pain,Heavy Breathing,Referred By Md Primary Care Physician: Sudha Vasquez C.R.N.P. History of Present Illness Source: patient 61 y/o M Hx CAD - 3V CABG 05/08, HTN, HPL, COPD, fatty liver, fatty pancreas. Presents with abdominal distention and pain mostly at the RUQ - subcostal margin. He also describes a mild cough. He states he feels it is difficult to take a deep breath and that the abdominal pain worsens with inspiration. Initial labs are notable for an elevated lipase and an elevated D dimer. A CT abdomen did not confirm pancreatitis, although a mild colitis may be present. A CTA of the chest revealed a small R parenchymal infiltrate. The pt denies CP , SOB, nausea, vomiting, diarrhea or fevers. Past Medical/Surgical History 1) HTN 2) HPL 3) CAD - 3V CABG [place] 05/01/16 4) Fatty liver 5) Fatty pancreas 6) COPD 7) GERD Family History Father due to lung CA Social History Quit smoking > 20 years ago - does not drink any alcohol Smoking Status: Former Smoker Drug Use: none Marital Status: Occupational Status: retired Multi-Drug Resistant Organisms History of MDRO: No Allergies Coded Allergies: No Known Allergies (Unverified , 03/09/17) Home Medications Scheduled Aspirin (Aspirin Ec), 81 MG PO DAILY Atorvastatin (Lipitor), 40 MG PO DAILY Cetirizine (Zyrtec), 10 MG PO DAILY Clopidogrel Bisulfate (Clopidogrel), 75 MG PO DAILY Fluticasone Furoate-Vilanterol (Breo Ellipta), 1 PUFF INH DAILY Ipratropium-Albuterol (Combivent Respimat), 1 PUFFS INH QID Lisinopril (Zestril), 5 MG PO DAILY Metoprolol Tartrate (Lopressor) (Lopressor), 12.5 MG PO BID Omeprazole (Prilosec), 20 MG PO BID Sertraline (Zoloft), 200 MG PO DAILY Scheduled PRN Albuterol Sulf (Albuterol Sulfate), 2.5 MG NEB BID PRN for COPD Review of Systems Constitutional: No fever, No chills, No sweats Eyes: No worsening of vision ENT: No hearing loss, No unusual epistaxis, No nasal symptoms Respiratory: No cough, No sputum, No wheezing Cardiovascular: No chest pain, No orthopnea, No PND Abdomen: + pain, + nausea, No vomiting, No diarrhea Musculoskeletal: No joint pain Genitourinary - Male: No hematuria, No dysuria Neurologic: No memory loss, No paralysis, No weakness Psychiatric: No depression symptoms Endocrine: No fatigue Hematologic / Lymphatic: No abnormal bleeding/bruising Integumentary: No rash Allergic / Immunologic: No environmental allergies Physical Exam Vital Signs Date Time Temp Pulse Resp B/P (MAP) Pulse Ox O2 Delivery O2 Flow Rate FiO2 03/09/17 19:24 144/99 03/09/17 18:17 108 23 95 03/09/17 18:12 104 24 96 03/09/17 17:42 111 22 95 03/09/17 17:12 100 26 95 03/09/17 17:07 101 19 95 03/09/17 16:52 134/92 03/09/17 16:11 106 03/09/17 15:11 36.8 121 22 157/100 97 Room Air General Appearance: WD/WN, no apparent distress Head: normocephalic Eyes: normal inspection ENT: normal ENT inspection, pharynx normal Neck: supple, no JVD Respiratory/Chest: chest non-tender, lungs clear, normal breath sounds Cardiovascular: regular rate, rhythm Abdomen/GI: + pertinent finding (Distended abdomen - diffusely tender in uooer quadrants - R > L - no guarding ) Back: normal inspection, no CVA tenderness Extremities/Musculoskelatal: normal inspection, no calf tenderness, normal capillary refill Neurologic/Psych: supervisor polishing II-XII nml as tested, no motor/sensory deficits, alert, oriented x 3 Skin: normal color Diagnostics Laboratory Results Results Past 24 Hours Test 03/09/17 15:35 Range/Units White Blood Count 11.41 4.8-10.8 K/uL Red Blood Count 5.10 4.7-6.1 M/uL Hemoglobin 15.9 14.0-18.0 g/dL Hematocrit 44.9 42-52 % Mean Corpuscular Volume 88.0 80-100 fL Mean Corpuscular Hemoglobin 31.2 25-34 pg Mean Corpuscular Hemoglobin Concent 35.4 32-36 g/dl Platelet Count 196 130-400 K/uL Mean Platelet Volume 10.1 7.4-10.4 fL Neutrophils (%) (Auto) 77.4 % Lymphocytes (%) (Auto) 15.6 % Monocytes (%) (Auto) 5.5 % Eosinophils (%) (Auto) 0.8 % Basophils (%) (Auto) 0.4 % Neutrophils # (Auto) 8.84 1.4-6.5 K/uL Lymphocytes # (Auto) 1.78 1.2-3.4 K/uL Monocytes # (Auto) 0.63 0.11-0.59 K/uL Eosinophils # (Auto) 0.09 0-0.5 K/uL Basophils # (Auto) 0.04 0-0.2 K/uL RDW Standard Deviation 41.5 36.4-46.3 fL RDW Coefficient of Variation 13.0 11.5-14.5 % Immature Granulocyte % (Auto) 0.3 % Immature Granulocyte # (Auto) 0.03 0.00-0.02 K/uL Prothrombin Time 10.7 9.0-12.0 SECONDS Prothromb Time International Ratio 1.0 0.9-1.1 Activated Partial Thromboplast Time 26.6 21.0-31.0 SECONDS Partial Thromboplastin Ratio 1.0 D-Dimer 3590 0-500 ug/L FEU Sodium Level 138 136-145 mmol/L Potassium Level 3.3 3.5-5.1 mmol/L Chloride Level 106 98-107 mmol/L Carbon Dioxide Level 25 21-32 mmol/L Anion Gap 7.0 3-11 mmol/L Blood Urea Nitrogen 11 7-18 mg/dl Creatinine 1.12 0.60-1.40 mg/dl Est Creatinine Clear Calc Drug Dose 76.8 ml/min Estimated GFR () 82.3 Estimated GFR (Non- 71.0 BUN/Creatinine Ratio 9.4 10-20 Random Glucose 132 70-99 mg/dl Calcium Level 9.0 8.5-10.1 mg/dl Magnesium Level 1.8 1.8-2.4 mg/dl Total Bilirubin 1.0 0.2-1 mg/dl Direct Bilirubin 0.2 0-0.2 mg/dl Aspartate Amino Transf (AST/SGOT) 23 15-37 U/L Alanine Aminotransferase (ALT/SGPT) 46 12-78 U/L Alkaline Phosphatase 97 45-117 U/L Troponin I < 0.015 0-0.045 ng/ml Pro-B-Type Natriuretic Peptide 695 0-900 pg/ml Total Protein 7.7 6.4-8.2 gm/dl Albumin 3.7 3.4-5.0 gm/dl Lipase 6996 73-393 U/L Diagnostic Radiology CT abdomen: 1. Possible minimal colitis with slight reactive thickening of the mesentery. 2. Diffuse fatty replacement of the pancreas. 3. Normal appendix. 4. Fatty replacement of the liver. CTA chest: 1. No evidence for pulmonary embolus. 2. Small parenchymal infiltrate right base. EKG Sinus tach Normal EKG Impression Assessment and Plan 61 y/o M Hx CAD - 3V CABG 05/08, HTN, HPL, COPD, fatty liver, fatty pancreas. Presents with abdominal distention and pain mostly at the RUQ - subcostal margin. He also describes a mild cough. He states he feels it is difficult to take a deep breath and that the abdominal pain worsens with inspiration. Initial labs are notable for an elevated lipase and an elevated D dimer. A CT abdomen did not confirm pancreatitis, although a mild colitis may be present. A CTA of the chest revealed a small R parenchymal infiltrate. The pt denies CP , SOB, nausea, vomiting, diarrhea or fevers. 1) Abdominal discomfort and elevated lipase - presumably acute pancreatitis although an exam is not consistent with the diagnosis - IVF, narcotics PRN, NPO , GI consult - triglycerides pending. 2) Pleuritic abdominal/subcostal pain, cough - infiltrate on CT - we will treat for PNM - placed on Levaquin 3) CAD - Cont ASA, Plavix, Statin, B diane 4) HTN - cont Metoprolol, Lisinopril 5) COPD - maintain home inhalers - PRN Albuterol - no evidence of acute exacerbation 6) HPL - cont Atorvastatin Full code - Heparin prophylaxis Total time for this admit including review of labs, meds, imaging, records - discussion with pt and ER attending - 35 min Level of Care Med/Surg Resuscitation Status FULL RESUSCITATION VTE Prophylaxis VTE Risk Assessment Done? Y/N: Yes Risk Level: Low Given or contraindicated: Unfractionated heparin SQ
[2017-03-09 21:00] VITALS: BP 152/79; PULSE 92; TEMP 36.9; O2SAT 96; BMI 28.5
[2017-03-09] MEDS ORDERED: MAGNESIUM SULFATE 1GM / D5W 1 GM in PREMIXED IN D5W 100 ML IV ONE (21:30)
[2017-03-09] MEDS: NSS + 20MEQ KCL 1000ML 1,000 ML IV SCH (22:03)
[2017-03-09] MEDS: POTASSIUM CHLR 10 MEQ / WTR 10 MEQ in PREMIXED WATER 100 ML IV SCH (22:06)
[2017-03-09] MEDS: LEVOFLOXACIN / D5W 750 MG in PREMIXED IN D5W 150 ML IV SCH (22:10)
[2017-03-09] MEDS: IPRATROPIUM BROMIDE/ALBUTEROL respimat INH INH SCH (22:22)
[2017-03-09] MEDS: METOPROLOL TARTRATE 25 MG TAB PO SCH (22:24)
[2017-03-09] MEDS: PANTOprazole SOD 40 MG TAB PO SCH (22:25)
[2017-03-09 23:25] VITALS: BP 137/91; PULSE 106; TEMP 37.7; O2SAT 96
[2017-03-09] MEDS: MoRPHine SULFATE 4 MG/ML 1 ML CARP\\VIAL IV PRN (23:44)
[2017-03-10] MEDS: POTASSIUM CHLR 10 MEQ / WTR 10 MEQ in PREMIXED WATER 100 ML IV SCH (00:02)
[2017-03-10] MEDS: ACETAMINOPHEN 325 MG TAB PO PRN ×2 (00:59→17:29)
[2017-03-10] MEDS: MoRPHine SULFATE 4 MG/ML 1 ML CARP\\VIAL IV PRN ×2 (05:52→12:16)
[2017-03-10 07:58] VITALS: BP 136/85; PULSE 80; TEMP 37; O2SAT 95
[2017-03-10] MEDS: NSS + 20MEQ KCL 1000ML 1,000 ML IV SCH (08:42)
--- NOTE | 2017-03-10 08:45 | Hospitalist Progress Note ---
Hospitalist Progress Note Date of Service Mar 10, 2017. (Liseth Hercules PA-C) Subjective Pt evaluation today including: conversation w/ patient, physical exam, chart review, lab review, review of studies, review of inpatient medication list Patient seen and evaluated. No acute events overnight. Reporting feeling better compared to admission. Lipase reduced to 1657. Continues to have abdominal bloating and epigastric pain but controlled with meds. Continues to have lack of appetite but no nausea/vomiting. Denies ETOH intake. Reports last thing he ate was two Amanda oranges and he developed nearly immediate abdominal pain. Denies H/O gastric ulcers or previous scope. Does report he may have had intermittent melena. Continues to pass gas and last BM was before presenting to the hospital. From a respiratory standpoint he denies cough or congestion. Reports SOB due to limited ability to take deep breaths due to distension. Constitutional: No fever, No chills Respiratory: + shortness of breath, No cough Cardiovascular: No chest pain Abdomen: + pain (epigastric), + GI bleeding (? possible intermittent melena) , No nausea, No vomiting, No diarrhea, No constipation Musculoskeletal: No swelling, No calf pain Male : No dysuria Heme: No abnormal bleeding/bruising (Liseth Hercules, TAMERAC) Medications Current Inpatient Medications Medications (Trade) Dose Ordered Sig/Vinicio Route Start Time Stop Time Status Last Admin Dose Admin Ioversol (Optiray 320) 100 ml UD PRN IV 03/09/17 15:30 03/13/17 15:29 Ioversol (Optiray 320) 100 ml UD PRN IV 03/09/17 18:30 03/13/17 18:29 Aspirin (Ecotrin Tab) 81 mg DAILY PO 03/10/17 09:00 04/09/17 08:59 Atorvastatin Calcium (Lipitor Tab) 40 mg DAILY PO 03/10/17 09:00 04/09/17 08:59 Cetirizine HCl (zyrTEC TAB) 10 mg DAILY PO 03/10/17 09:00 04/09/17 08:59 Clopidogrel Bisulfate (plAVix TAB) 75 mg DAILY PO 03/10/17 09:00 04/09/17 08:59 Albuterol/ Ipratropium (Combivent Respimat Inh) 1 puffs QID INH 03/09/17 21:00 04/08/17 20:59 03/09/17 22:22 1 PUFFS Lisinopril (Zestril Tab) 5 mg DAILY PO 03/10/17 09:00 04/09/17 08:59 Metoprolol Tartrate (Lopressor Tab) 12.5 mg BID PO 03/09/17 21:00 04/08/17 20:59 03/09/17 22:24 12.5 MG Sertraline HCl (Zoloft Tab) 200 mg DAILY PO 03/10/17 09:00 04/09/17 08:59 Miscellaneous Information (Order Awaiting Action) 1 ea QS N/A 03/10/17 00:00 04/09/17 00:00 Pantoprazole Sodium (Protonix Tab) 40 mg BID PO 03/09/17 21:00 04/08/17 20:59 03/09/17 22:25 40 MG Albuterol Sulfate (Ventolin 0.083% 2.5MG/3ML Neb) 2.5 mg Q6R PRN INH 03/09/17 20:00 04/08/17 19:59 Morphine Sulfate (MoRPHine SULFATE INJ) 3 mg Q3H PRN IV 03/09/17 20:00 03/23/17 19:59 03/10/17 05:52 3 MG Potassium Chloride/Sodium Chloride 1,000 ml @ 100 mls/hr Q10H IV 03/09/17 21:30 03/10/17 17:29 03/10/17 08:42 100 MLS/HR Acetaminophen (Tylenol Tab) 650 mg Q4H PRN PO 03/09/17 20:00 04/08/17 19:59 03/10/17 00:59 650 MG Al Hydrox/Mg Hydrox/Simethicone (Maalox Max Susp) 15 ml Q4H PRN PO 03/09/17 20:00 04/08/17 19:59 Magnesium Hydroxide (Milk Of Magnesia Susp) 30 ml Q6H PRN PO 03/09/17 20:00 04/08/17 19:59 Polyethylene (Miralax Powder Packet) 17 gm DAILY PRN PO 03/09/17 20:00 04/08/17 19:59 Ondansetron HCl (Zofran Inj) 4 mg Q6H PRN IV 03/09/17 20:00 04/08/17 19:59 Levofloxacin 750 mg/Prmx 150 ml @ 100 mls/hr Q24H IV 03/09/17 22:00 03/16/17 21:59 03/09/17 22:10 100 MLS/HR (Liseth Hercules PA-C) Objective Vital Signs Date Time Temp Pulse Resp B/P (MAP) Pulse Ox O2 Delivery O2 Flow Rate FiO2 03/10/17 07:58 37.0 80 18 136/85 (102) 95 Room Air 03/10/17 07:50 Room Air 03/09/17 23:45 Room Air 03/09/17 23:25 37.7 106 18 137/91 (106) 96 Room Air 03/09/17 21:00 36.9 92 18 152/79 96 Room Air 03/09/17 21:00 36.9 92 18 152/79 (103) 96 Room Air 03/09/17 19:24 144/99 03/09/17 18:17 108 23 95 03/09/17 18:12 104 24 96 03/09/17 17:42 111 22 95 03/09/17 17:12 100 26 95 03/09/17 17:07 101 19 95 03/09/17 16:52 134/92 03/09/17 16:11 106 03/09/17 15:11 36.8 121 22 157/100 97 Room Air (Liseth Hercules PA-C) Physical Exam General Appearance: WD/WN, no apparent distress Eyes: sclerae normal ENT: hearing grossly normal Neck: supple, no JVD, trachea midline Respiratory/Chest: lungs clear, normal breath sounds, no respiratory distress, no accessory muscle use Cardiovascular: regular rate, rhythm, no gallop, no murmur Abdomen: normal bowel sounds, + distended, + tenderness Extremities: no pedal edema Neurologic/Psychiatric: alert, oriented x 3 Skin: normal color, warm/dry (Liseth Hercules PA-C) Laboratory Results Last 24 Hours Test 03/09/17 15:35 03/09/17 15:43 03/10/17 04:00 03/10/17 08:33 White Blood Count 11.41 K/uL Red Blood Count 5.10 M/uL Hemoglobin 15.9 g/dL Hematocrit 44.9 % Mean Corpuscular Volume 88.0 fL Mean Corpuscular Hemoglobin 31.2 pg Mean Corpuscular Hemoglobin Concent 35.4 g/dl Platelet Count 196 K/uL Mean Platelet Volume 10.1 fL Neutrophils (%) (Auto) 77.4 % Lymphocytes (%) (Auto) 15.6 % Monocytes (%) (Auto) 5.5 % Eosinophils (%) (Auto) 0.8 % Basophils (%) (Auto) 0.4 % Neutrophils # (Auto) 8.84 K/uL Lymphocytes # (Auto) 1.78 K/uL Monocytes # (Auto) 0.63 K/uL Eosinophils # (Auto) 0.09 K/uL Basophils # (Auto) 0.04 K/uL RDW Standard Deviation 41.5 fL RDW Coefficient of Variation 13.0 % Immature Granulocyte % (Auto) 0.3 % Immature Granulocyte # (Auto) 0.03 K/uL Prothrombin Time 10.7 SECONDS Prothromb Time International Ratio 1.0 Activated Partial Thromboplast Time 26.6 SECONDS Partial Thromboplastin Ratio 1.0 D-Dimer 3590 ug/L FEU Sodium Level 138 mmol/L Potassium Level 3.3 mmol/L Chloride Level 106 mmol/L Carbon Dioxide Level 25 mmol/L Anion Gap 7.0 mmol/L Blood Urea Nitrogen 11 mg/dl Creatinine 1.12 mg/dl Est Creatinine Clear Calc Drug Dose 76.8 ml/min Estimated GFR () 82.3 Estimated GFR (Non- 71.0 BUN/Creatinine Ratio 9.4 Random Glucose 132 mg/dl Calcium Level 9.0 mg/dl Magnesium Level 1.8 mg/dl Total Bilirubin 1.0 mg/dl Direct Bilirubin 0.2 mg/dl Aspartate Amino Transf (AST/SGOT) 23 U/L Alanine Aminotransferase (ALT/SGPT) 46 U/L Alkaline Phosphatase 97 U/L Troponin I < 0.015 ng/ml Pro-B-Type Natriuretic Peptide 695 pg/ml Total Protein 7.7 gm/dl Albumin 3.7 gm/dl Lipase 6996 U/L Triglycerides Level 263 mg/dl Urine Color YELLOW Urine Appearance CLEAR Urine pH 6.5 Urine Specific [place] > 1.045 Urine Protein NEG Urine Glucose (UA) NEG Urine Ketones TRACE Urine Occult Blood NEG Urine Nitrite NEG Urine Bilirubin NEG Urine Urobilinogen NEG Urine Leukocyte Esterase NEG (Liseth Hercules PA-C) Assessment and Plan 61 y/o M Hx CAD - 3V CABG 05/08, HTN, HPL, COPD, fatty liver, fatty pancreas. Presents with abdominal distention and pain mostly at the RUQ - subcostal margin. He also describes a mild cough. He states he feels it is difficult to take a deep breath and that the abdominal pain worsens with inspiration. Initial labs are notable for an elevated lipase and an elevated D dimer. A CT abdomen did not confirm pancreatitis, although a mild colitis may be present. A CTA of the chest revealed a small R parenchymal infiltrate. The pt denies CP , SOB, nausea, vomiting, diarrhea or fevers. Abdominal Pain: Unknown Etiology - Presumed Pancreatitis - GB Disease vs PUD vs Mesenteric Ischemia? - Lipase trending down - will continue to treat with LR 200 mL/hr and pain control - Mesenteric dopplers - given significant cardiac disease, elevated D- Dimer...presentation not completely consistent as pain appears almost instantaneously after eating - Liver U/S reveals sludge and possible stone without acute cholecystitis; MRCP unremarkable other than fatty pancreas - Keep NPO except sips/chips and possible advancement to clears tomorrow pending clinical response - Continue to trend lipase and CMP - Protonix 40 mg BID - Levaquin for supsected pneumonia - pending response may need to consider addition for anerobic coverage - GI following - appreciate recommendations - continue hydration and pain management; outpatient EUS and possible consideration for connie Pleuritic CP - Possible Pneumonia: - Levaquin 750 mg daily Possible Melena: - Hgb stable and will monitor - guiac stools CAD S/P CABG x 3 and HTN: - ASA 81 mg daily, Plavix 75 mg daily, and Atorvastatin 40 mg daily - Lisinopril 5 mg daily and Metoprolol 12.5 mg BID COPD without Exacerbation: - Combivent QID and Ventolin PRN Code Status: FULL RESUSCITATION DVT Prophylaxis: SCDs Disposition: - Continue hydration possible diet advancement tomorrow Continued [facility] stay due to: multiple IV medications needed (Liseth Hercules PA-C) PA Physician Supervision Note: I interviewed and examined the patient. Discussed with Liseth Hercuels PAC and agree with findings and plan as documented in the note. Any exceptions or clarifications are listed here: None Patient admitted with acute pancreatitis and concern for right sided pneumonia is improved dramatically with symptoms and lipase has had a GI workup including ultrasound of his gallbladder and MRCP which were nonrevealing for source of his pancreatitis he remains nothing by mouth with conservative management is signed vital signs are reviewed these are stable exception of mild tachycardia next His abdominal exam is soft is mildly tender in both upper quadrants but no rebound or guarding For the patient's pancreatitis will continue to keep him without significant oral intake IV fluid pain control antiemetics watching his lipase given his abdominal discomfort we may consider pursuing a mesenteric Doppler to look for celiac plexus stenosis. We'll maintain him on antibiotics for his pneumonia and reevaluate him in the morning Documented By: Natanael Silveira (Natanael Silveira M.D.)
[2017-03-10] MEDS: ASPIRIN 81 MG ECTAB PO SCH (09:10)
[2017-03-10] MEDS: IPRATROPIUM BROMIDE/ALBUTEROL respimat INH INH SCH ×4 (09:10→21:32)
[2017-03-10] MEDS: ATORVASTATIN 40 MG TAB PO SCH (09:11)
[2017-03-10] MEDS: PANTOprazole SOD 40 MG TAB PO SCH ×2 (09:12→21:32)
[2017-03-10] MEDS: METOPROLOL TARTRATE 25 MG TAB PO SCH ×2 (09:12→21:31)
[2017-03-10] MEDS: CLOPIDOGREL BISULFATE 75 MG TAB PO SCH (09:12)
[2017-03-10] MEDS: SERTRALINE HCL 100 MG TAB PO SCH (09:13)
[2017-03-10] MEDS: CETIRIZINE HCL 10 MG TAB PO SCH (09:13)
[2017-03-10] MEDS: LISINOPRIL 5 MG TAB PO SCH (09:13)
[2017-03-10 09:15] LABS: HEMOGLOBIN 15.1 g/dL (14.0-18.0); MEAN CELL VOLUME 89.8 fL (80-100); MEAN CORPUSCULAR HEMOGLOBIN 30.8 pg (25-34); MEAN CORPUSCULAR HGB CONC 34.3 g/dl (32-36); MEAN PLATELET VOLUME 10.7 fL (7.4-10.4); PLATELET COUNT 201 K/uL (130-400); RED CELL DISTRIBUTION WIDTH CV 13.2 % (11.5-14.5); RED CELL DISTRIBUTION WIDTH SD 43.5 fL (36.4-46.3)
[2017-03-10 09:45] LABS: CALCIUM 8.5 mg/dl (8.5-10.1); CREATININE 1.05 mg/dl (0.60-1.40); POTASSIUM 4.1 mmol/L (3.5-5.1)
--- NOTE | 2017-03-10 10:01 | Gastrointestinal Consultation ---
Gastrointestinal Consultation Date of Consultation: Mar 10, 2017 Attending Physician: Elizabeth Consulting Physician: Gera Reason for Consultation: acute panc History of Present Illness Patient is a 61 year old male w/ history of CAD s/p CABG in April 2016 who presents through the ED for abd bloating and abrupt onset RUQ pain w/ nausea, worse with deep breath. Pt was seen and evaluated, chart reviewed. Pt notes that about two days ago he had vague abd distention and bloating w/ severe sharp burning upper abdominal pain, associated w/ nausea. No vomiting. Pain is worse w/ PO intake and deep breathing. No alleviating factor. He tells me he typically moves his bowels 1-3 times daily. Stools are formed, can be very dark (he questions if black) or brown. Most recent BM was yesterday and brown. No BRBPR. In the ED, d-dimer and lipase were significantly elevated. CT w/o evidence of acute panc. BP this AM 136/85 w. pulse 102. Kidney and liver function tests non- elevated. Lipase 7000 w/ triglycerides 260 GB: yes ETOH: none Tobacco: none New medications: none CT ABD: Possible minimal colitis with slight reactive thickening of the mesentery. Diffuse fatty replacement of the pancreas.Normal appendix. Fattyreplacement of the liver. CTA: No evidence for pulmonary embolus. Small parenchymal infiltrate right base. Chest XR: No acute findings Past Medical/Surgical History Medical Problems: (1) Burning chest pain Status: Acute (2) Pancreatitis Status: Acute (3) SOB (shortness of breath) Status: Acute Past Medical History: CAD, COPD, dyslipidemiea, fatty liver, HTN, GERD Past Surgical History: CABG Social History Smoking Status: Former Smoker Alcohol Use: none Drug Use: none Marital Status: Housing Status: lives with significant other Occupation Status: retired Allergies Coded Allergies: No Known Allergies (Unverified , 03/09/17) Current Medications Home Meds and Scripts Medications Dose Route/Sig Max Daily Dose Days Date Category Dose Instructions Combivent Respimat (Ipratropium-Albuterol) 1 Aer Aer 1 Puffs INH QID 03/09/17 Reported Zestril (Lisinopril) 5 Mg Tab 5 Mg PO DAILY 03/09/17 Reported Prilosec (Omeprazole) 20 Mg Capcr 20 Mg PO BID 03/09/17 Reported Zyrtec (Cetirizine HCl) 10 Mg Tab 10 Mg PO DAILY 06/12/16 Reported Aspirin Ec (Aspirin) 81 Mg Tab 81 Mg PO DAILY 06/12/16 Reported Breo Ellipta (Fluticasone Furoate-Vilanterol) 1 Inh Inh 1 Puff INH DAILY 06/12/16 Reported 100-25 MCG Albuterol Sulfate (Albuterol Sulf) 2.5 Mg/3 Ml Nebu 2.5 Mg NEB BID PRN 06/12/16 Reported Lipitor (Atorvastatin Calcium) 40 Mg Tab 40 Mg PO DAILY 06/12/16 Reported Clopidogrel (Clopidogrel Bisulfate) 75 Mg Tab 75 Mg PO DAILY 06/12/16 Reported Lopressor (Metoprolol Tartrate) 25 Mg Tab 12.5 Mg PO BID 06/12/16 Reported Zoloft (Sertraline HCl) 100 Mg Tab 200 Mg PO DAILY 06/12/16 Reported Review of Systems Constitutional: No fever, No chills Respiratory: + shortness of breath, No cough Cardiac: No chest pain, No edema Abdomen: + pain, + nausea, No vomiting, No diarrhea, No constipation, No GI bleeding Skin: + rash (generalized rash, non-pruritic) Physical Exam Date Time Temp Pulse Resp B/P (MAP) Pulse Ox O2 Delivery O2 Flow Rate FiO2 03/10/17 07:58 37.0 80 18 136/85 (102) 95 Room Air 03/10/17 07:50 Room Air 03/09/17 23:45 Room Air 03/09/17 23:25 37.7 106 18 137/91 (106) 96 Room Air 03/09/17 21:00 36.9 92 18 152/79 96 Room Air 03/09/17 21:00 36.9 92 18 152/79 (103) 96 Room Air 03/09/17 19:24 144/99 03/09/17 18:17 108 23 95 03/09/17 18:12 104 24 96 03/09/17 17:42 111 22 95 03/09/17 17:12 100 26 95 03/09/17 17:07 101 19 95 03/09/17 16:52 134/92 03/09/17 16:11 106 03/09/17 15:11 36.8 121 22 157/100 97 Room Air General Appearance: no apparent distress Eyes: PERRL ENT: hearing grossly normal Neck: supple Respiratory/Chest: lungs clear, normal breath sounds Cardiovascular: regular rate, rhythm Abdomen: soft, no organomegaly, + tenderness Neurologic/Psych: alert, normal mood/affect, oriented x 3 Skin: normal color, no jaundice Laboratory Results Last 24 Hours Test 03/09/17 15:35 03/09/17 15:43 03/10/17 04:00 03/10/17 08:33 White Blood Count 11.41 K/uL 12.50 K/uL Red Blood Count 5.10 M/uL 4.90 M/uL Hemoglobin 15.9 g/dL 15.1 g/dL Hematocrit 44.9 % 44.0 % Mean Corpuscular Volume 88.0 fL 89.8 fL Mean Corpuscular Hemoglobin 31.2 pg 30.8 pg Mean Corpuscular Hemoglobin Concent 35.4 g/dl 34.3 g/dl Platelet Count 196 K/uL 201 K/uL Mean Platelet Volume 10.1 fL 10.7 fL Neutrophils (%) (Auto) 77.4 % Lymphocytes (%) (Auto) 15.6 % Monocytes (%) (Auto) 5.5 % Eosinophils (%) (Auto) 0.8 % Basophils (%) (Auto) 0.4 % Neutrophils # (Auto) 8.84 K/uL Lymphocytes # (Auto) 1.78 K/uL Monocytes # (Auto) 0.63 K/uL Eosinophils # (Auto) 0.09 K/uL Basophils # (Auto) 0.04 K/uL RDW Standard Deviation 41.5 fL 43.5 fL RDW Coefficient of Variation 13.0 % 13.2 % Immature Granulocyte % (Auto) 0.3 % Immature Granulocyte # (Auto) 0.03 K/uL Prothrombin Time 10.7 SECONDS Prothromb Time International Ratio 1.0 Activated Partial Thromboplast Time 26.6 SECONDS Partial Thromboplastin Ratio 1.0 D-Dimer 3590 ug/L FEU Sodium Level 138 mmol/L 138 mmol/L Potassium Level 3.3 mmol/L 4.1 mmol/L Chloride Level 106 mmol/L 107 mmol/L Carbon Dioxide Level 25 mmol/L 26 mmol/L Anion Gap 7.0 mmol/L 5.0 mmol/L Blood Urea Nitrogen 11 mg/dl 10 mg/dl Creatinine 1.12 mg/dl 1.05 mg/dl Est Creatinine Clear Calc Drug Dose 76.8 ml/min 81.9 ml/min Estimated GFR () 82.3 89.0 Estimated GFR (Non- 71.0 76.8 BUN/Creatinine Ratio 9.4 9.5 Random Glucose 132 mg/dl 90 mg/dl Calcium Level 9.0 mg/dl 8.5 mg/dl Magnesium Level 1.8 mg/dl 2.0 mg/dl Total Bilirubin 1.0 mg/dl Direct Bilirubin 0.2 mg/dl Aspartate Amino Transf (AST/SGOT) 23 U/L Alanine Aminotransferase (ALT/SGPT) 46 U/L Alkaline Phosphatase 97 U/L Troponin I < 0.015 ng/ml Pro-B-Type Natriuretic Peptide 695 pg/ml Total Protein 7.7 gm/dl Albumin 3.7 gm/dl Lipase 6996 U/L 1657 U/L Triglycerides Level 263 mg/dl Urine Color YELLOW Urine Appearance CLEAR Urine pH 6.5 Urine Specific [place] > 1.045 Urine Protein NEG Urine Glucose (UA) NEG Urine Ketones TRACE Urine Occult Blood NEG Urine Nitrite NEG Urine Bilirubin NEG Urine Urobilinogen NEG Urine Leukocyte Esterase NEG Impression Patient is a 61 year old male w/ abrupt onset upper abd pain, distention and nausea, no vomiting who presented through the ED, lipase is significantly elevated at 7000, with normal LFTs. He does not drink any ETOH, no tobacco products, no new medication. Will need to rule out biliary cause of acute pancreatitis w/ additional imaging. gallstone panc vs drug induced vs other Plan - GB and liver imaging - Pending results may need MRCP/EUS/ERCP - LR 150-200 ml/hr - Analgesia PRN - Antiemetics PRN - Outpatient EUS - Suspected pneumonia treatment per primary service - GI will follow, please call with any questions or concerns. RUQ US reviewed. GB sludge and GB stones, no biliary dilation. Normal LFTs. After resolution of acute episode, should be evaluated for cholecystectomy. Attg add: I interviewed and examined pt, reviewed chart and labs. Pt with intermittent bloating for the past few weeks, now abruptly worse since Wednesday. Lipase increased on admission. On exam, pt with abd distention and tenderness in epigastrium. ? biliary pancreatitis. DDx includes occult alcohol, structural disease of pancreas, cancer. Plan: Analgesics, IVF MRCP.
--- NOTE | 2017-03-10 12:04 | DIAGNOSTIC IMAGING REPORT ---
(LIVER) ABDOMEN LIMITED HISTORY: 61 years-old Male panc, assess GB for stones, assess CBD dilation acute epigastric abdominal pain. COMPARISON: CT abdomen and pelvis 03/09/2017 TECHNIQUE: Multiple real time sonographic images of the abdominal right upper quadrant were obtained assessing grayscale appearance and color flow. FINDINGS: Pancreas is obscured by bowel gas. There is increased echogenicity with poor through transmission of the liver suggesting fatty infiltration. No intrahepatic biliary ductal dilation identified. Nonshadowing echogenic foci noted within the region of the gallbladder neck suggesting gallbladder sludge. No gallbladder wall thickening or pericholecystic fluid collections. 7 mm echogenic nonshadowing focus is seen within the region of the gallbladder neck suggesting a gallstone. Common bile duct measures 5 mm. Right kidney is unremarkable measuring up to 10.6 cm. IMPRESSION: 1. Pancreas obscured by bowel gas. 2. Mild gallbladder sludge with 7 mm nonshadowing echogenic focus of the gallbladder neck suggesting possible cholelithiasis. No sonographic evidence of acute cholecystitis. 3. No biliary ductal dilation. The above report was generated using voice recognition software. It may contain grammatical, syntax or spelling errors. Electronically signed by: Arnulfo Peralta M.D. 03/10/2017 12:03 PM Dictated Date/Time: 03/10/2017 11:54 AM
[2017-03-10] MEDS: LACTATED RINGER'S 1000ML 1,000 ML IV SCH ×2 (15:20→21:33)
[2017-03-10 15:42] VITALS: BP 132/81; PULSE 86; TEMP 37.4; O2SAT 94
--- NOTE | 2017-03-10 16:27 | DIAGNOSTIC IMAGING REPORT ---
MRCP CLINICAL HISTORY: gallstones, abd pain, acute panc pancreatitis TECHNIQUE: Multiaxial MRI acquisition COMPARISON STUDY: CT abdomen and pelvis 03/09/2017 FINDINGS: Liver is uniform throughout. Gallbladder is negative for distention. There is diffuse fatty replacement of the pancreas. Spleen is uniform. There is no significant upper abdominal adenopathy. Kidneys negative for hydronephrosis. The MRCP comparison study is unremarkable. There are no stenotic process nor is there evidence for filling defect. Pancreatic duct is unremarkable. IMPRESSION: Diffuse fatty infiltration of the pancreas. Otherwise negative study. The above report was generated using voice recognition software. It may contain grammatical, syntax or spelling errors. Electronically signed by: James Deutsch M.D. 03/10/2017 4:26 PM Dictated Date/Time: 03/10/2017 4:16 PM
[2017-03-10] MEDS ORDERED: MoRPHine SULFATE 4 MG/ML 1 ML CARP\\VIAL IV PRN (17:00)
[2017-03-10] MEDS: ALUMINUM/MAGNESIUM/SIMETH (MAALOX MAX) 30 ML UDC PO PRN ×2 (17:29→23:41)
[2017-03-10 21:27] VITALS: BP 145/80
[2017-03-10] MEDS: LEVOFLOXACIN / D5W 750 MG in PREMIXED IN D5W 150 ML IV SCH (21:33)
[2017-03-10] MEDS: MoRPHine SULFATE 2 MG/ML CARP IV PRN (23:43)
[2017-03-10 23:45] VITALS: BP 151/95; PULSE 96; TEMP 36.9; O2SAT 97
[2017-03-11] MEDS: LACTATED RINGER'S 1000ML 1,000 ML IV SCH ×4 (00:45→16:06)
[2017-03-11] MEDS: ALUMINUM/MAGNESIUM/SIMETH (MAALOX MAX) 30 ML UDC PO PRN (06:21)
[2017-03-11] MEDS: ACETAMINOPHEN 325 MG TAB PO PRN (06:23)
[2017-03-11 06:42] LABS: HEMATOCRIT 42.6 % (42-52); HEMOGLOBIN 14.5 g/dL (14.0-18.0); MEAN CELL VOLUME 90.4 fL (80-100); MEAN CORPUSCULAR HEMOGLOBIN 30.8 pg (25-34); MEAN PLATELET VOLUME 9.9 fL (7.4-10.4); PLATELET COUNT 169 K/uL (130-400); RED CELL DISTRIBUTION WIDTH SD 42.9 fL (36.4-46.3); WHITE BLOOD COUNT 13.99 K/uL (4.8-10.8)
[2017-03-11 07:14] LABS: ALBUMIN 3.1 gm/dl (3.4-5.0); CALCIUM 8.9 mg/dl (8.5-10.1); CREATININE 0.95 mg/dl (0.60-1.40); POTASSIUM 3.8 mmol/L (3.5-5.1)
[2017-03-11 07:18] LABS: TOTAL PROTEIN 7.4 gm/dl (6.4-8.2)
[2017-03-11] MEDS: MoRPHine SULFATE 2 MG/ML CARP IV PRN ×4 (07:37→23:56)
[2017-03-11] MEDS: IPRATROPIUM BROMIDE/ALBUTEROL respimat INH INH SCH ×4 (07:40→21:34)
[2017-03-11] MEDS: SERTRALINE HCL 100 MG TAB PO SCH (07:41)
[2017-03-11] MEDS: METOPROLOL TARTRATE 25 MG TAB PO SCH ×2 (07:41→21:35)
[2017-03-11] MEDS: ASPIRIN 81 MG ECTAB PO SCH (07:41)
[2017-03-11] MEDS: ATORVASTATIN 40 MG TAB PO SCH (07:41)
[2017-03-11] MEDS: CLOPIDOGREL BISULFATE 75 MG TAB PO SCH (07:41)
[2017-03-11] MEDS: LISINOPRIL 5 MG TAB PO SCH (07:42)
[2017-03-11] MEDS: CETIRIZINE HCL 10 MG TAB PO SCH (07:42)
[2017-03-11] MEDS: PANTOprazole SOD 40 MG TAB PO SCH ×2 (07:42→21:36)
[2017-03-11 08:07] VITALS: BP 154/96; PULSE 94; TEMP 37; O2SAT 95
--- NOTE | 2017-03-11 08:54 | DIAGNOSTIC IMAGING REPORT ---
DUPLEX MESENTERIC CLINICAL HISTORY: eval for mesenteric artery stenosis TECHNIQUE: Abdominal arterial Doppler COMPARISON STUDY: None FINDINGS: Somewhat compromised evaluation due to overlying bowel content. No major stenotic process. IMPRESSION: No evidence for significant stenotic process within the limitations of overlying bowel content. The above report was generated using voice recognition software. It may contain grammatical, syntax or spelling errors. Electronically signed by: James Deutsch M.D. 03/11/2017 8:52 AM Dictated Date/Time: 03/11/2017 8:45 AM
--- NOTE | 2017-03-11 10:02 | Gastroenterology Progress Note ---
Progress Note Date of Service: Mar 11, 2017 Subjective Pt evaluation today including: conversation w/ patient, physical exam, chart review, lab review Pt was seen and evaluated, no acute events overnight. Pt notes that he feels much better, symptoms are 50% improved. Was given clear liquids this AM. Is now reporting a mild epigastric burning w/ mild nausea. No UGI symptoms. No BM since admission. He tells me he feel more bloated and distended this AM. Did pass gas. No fever, chills, CP, SOB. GB: yes ETOH: none Tobacco: none New medications: none CT ABD: Possible minimal colitis with slight reactive thickening of the mesentery. Diffuse fatty replacement of the pancreas.Normal appendix. Fatty replacement of the liver. CTA: No evidence for pulmonary embolus. Small parenchymal infiltrate right base. Chest XR: No acute findings MRCP 03/10/17: Liver is uniform throughout. Gallbladder is negative for distention.There is diffuse fatty replacement of the pancreas. Spleen is uniform. There isno significant upper abdominal adenopathy. Kidneys negative for hydronephrosis.The MRCP comparison study is unremarkable. There are no stenotic process nor is there evidence for filling defect. Pancreatic duct is unremarkable. Mesenteric Duplex 03/10/17: No evidence for significant stenotic process within the limitations of overlying bowel content. Review of Systems Constitutional: No fever, No chills Respiratory: No cough, No shortness of breath Cardiac: No chest pain Abdomen: + pain, + constipation, No nausea, No vomiting Medications Current Inpatient Medications Medications (Trade) Dose Ordered Sig/Vinicio Route Start Time Stop Time Status Last Admin Dose Admin Ioversol (Optiray 320) 100 ml UD PRN IV 03/09/17 15:30 03/13/17 15:29 Ioversol (Optiray 320) 100 ml UD PRN IV 03/09/17 18:30 03/13/17 18:29 Aspirin (Ecotrin Tab) 81 mg DAILY PO 03/10/17 09:00 04/09/17 08:59 03/11/17 07:41 81 MG Atorvastatin Calcium (Lipitor Tab) 40 mg DAILY PO 03/10/17 09:00 04/09/17 08:59 03/11/17 07:41 40 MG Cetirizine HCl (zyrTEC TAB) 10 mg DAILY PO 03/10/17 09:00 04/09/17 08:59 03/11/17 07:42 10 MG Clopidogrel Bisulfate (plAVix TAB) 75 mg DAILY PO 03/10/17 09:00 04/09/17 08:59 03/11/17 07:41 75 MG Albuterol/ Ipratropium (Combivent Respimat Inh) 1 puffs QID INH 03/09/17 21:00 04/08/17 20:59 03/11/17 07:40 1 PUFFS Lisinopril (Zestril Tab) 5 mg DAILY PO 03/10/17 09:00 04/09/17 08:59 03/11/17 07:42 5 MG Metoprolol Tartrate (Lopressor Tab) 12.5 mg BID PO 03/09/17 21:00 04/08/17 20:59 03/11/17 07:41 12.5 MG Sertraline HCl (Zoloft Tab) 200 mg DAILY PO 03/10/17 09:00 04/09/17 08:59 03/11/17 07:41 200 MG Miscellaneous Information (Order Awaiting Action) 1 ea QS N/A 03/10/17 00:00 04/09/17 00:00 Pantoprazole Sodium (Protonix Tab) 40 mg BID PO 03/09/17 21:00 04/08/17 20:59 03/11/17 07:42 40 MG Albuterol Sulfate (Ventolin 0.083% 2.5MG/3ML Neb) 2.5 mg Q6R PRN INH 03/09/17 20:00 04/08/17 19:59 Acetaminophen (Tylenol Tab) 650 mg Q4H PRN PO 03/09/17 20:00 04/08/17 19:59 03/11/17 06:23 650 MG Al Hydrox/Mg Hydrox/Simethicone (Maalox Max Susp) 15 ml Q4H PRN PO 03/09/17 20:00 04/08/17 19:59 03/11/17 06:21 15 ML Magnesium Hydroxide (Milk Of Magnesia Susp) 30 ml Q6H PRN PO 03/09/17 20:00 04/08/17 19:59 Polyethylene (Miralax Powder Packet) 17 gm DAILY PRN PO 03/09/17 20:00 04/08/17 19:59 Ondansetron HCl (Zofran Inj) 4 mg Q6H PRN IV 03/09/17 20:00 04/08/17 19:59 Levofloxacin 750 mg/Prmx 150 ml @ 100 mls/hr Q24H IV 03/09/17 22:00 03/16/17 21:59 03/10/17 21:33 100 MLS/HR Lactated Ringer's 1,000 ml @ 200 mls/hr Q5H IV 03/10/17 14:45 04/09/17 14:44 03/11/17 05:44 200 MLS/HR Morphine Sulfate (MoRPHine SULFATE INJ) 2 mg Q3H PRN IV 03/10/17 17:00 03/24/17 16:59 03/11/17 07:37 2 MG Morphine Sulfate (MoRPHine SULFATE INJ) 4 mg Q3H PRN IV 03/10/17 17:00 03/24/17 16:59 Metronidazole (Flagyl Tab) 500 mg TID PO 03/11/17 10:00 03/21/17 09:59 Objective Vital Signs Date Time Temp Pulse Resp B/P (MAP) Pulse Ox O2 Delivery O2 Flow Rate FiO2 03/11/17 08:07 37.0 94 18 154/96 (115) 95 Room Air 03/11/17 08:00 Room Air 03/10/17 23:45 36.9 96 18 151/95 (113) 97 Room Air 03/10/17 23:40 Room Air 03/10/17 21:27 145/80 (101) 03/10/17 15:42 37.4 86 16 132/81 (98) 94 Room Air 03/10/17 15:15 Room Air Physical Exam General Appearance: no apparent distress Eyes: PERRL ENT: hearing grossly normal Neck: supple Respiratory/Chest: lungs clear, normal breath sounds Cardiovascular: regular rate, rhythm Abdomen: + distended (worse abd distention, tympanic), + tenderness (mild epigastric tenderness) Neurologic/Psych: alert, normal mood/affect, oriented x 3 Skin: normal color Laboratory Results Last 24 Hours Test 03/11/17 06:29 White Blood Count 13.99 K/uL Red Blood Count 4.71 M/uL Hemoglobin 14.5 g/dL Hematocrit 42.6 % Mean Corpuscular Volume 90.4 fL Mean Corpuscular Hemoglobin 30.8 pg Mean Corpuscular Hemoglobin Concent 34.0 g/dl RDW Standard Deviation 42.9 fL RDW Coefficient of Variation 13.0 % Platelet Count 169 K/uL Mean Platelet Volume 9.9 fL Sodium Level 134 mmol/L Potassium Level 3.8 mmol/L Chloride Level 99 mmol/L Carbon Dioxide Level 23 mmol/L Anion Gap 12.0 mmol/L Blood Urea Nitrogen 10 mg/dl Creatinine 0.95 mg/dl Est Creatinine Clear Calc Drug Dose 90.6 ml/min Estimated GFR () 100.4 Estimated GFR (Non- 86.7 BUN/Creatinine Ratio 11.0 Random Glucose 88 mg/dl Calcium Level 8.9 mg/dl Total Bilirubin 1.7 mg/dl Aspartate Amino Transf (AST/SGOT) 20 U/L Alanine Aminotransferase (ALT/SGPT) 28 U/L Alkaline Phosphatase 83 U/L Total Protein 7.4 gm/dl Albumin 3.1 gm/dl Globulin 4.3 gm/dl Albumin/Globulin Ratio 0.7 Lipase 466 U/L Assessment and Plan 61 year old male w/ history of abd bloating x 1 month w/ abrupt onset upper abd pain, distention and nausea, no vomiting who presented through the ED, lipase is significantly elevated at 7000, with normal LFTs. He does not drink any ETOH , no tobacco products, no new medication. Will need to rule out biliary cause of acute pancreatitis w/ additional imaging. gallstone panc vs drug induced vs other. MRCP w/o stricture or filling defect, pt had clear liquids this AM and notes 50% improvement of his symptoms. He is more bloated and distended today. - KUB - LR 150 ml/hr - Analgesia PRN - Antiemetics PRN - Outpatient EUS - Suspected pneumonia treatment per primary service - GI will follow, please call with any questions or concerns. KUB reviewed, will give a dose of relistor Attg add: I interviewed and examined pt, reviewed chart and labs. Pt slowly improving, narcotic requirement decreasing, adriano PO. He has evidence of ileus, likely from narcos, on imaging and exam. Also, his total bili is up. Will plan to reduce fluids to maintenance, follow clinical exam and LFT's.
[2017-03-11] MEDS: METRONIDAZOLE 500 MG TAB PO SCH ×3 (10:41→21:35)
--- NOTE | 2017-03-11 11:34 | DIAGNOSTIC IMAGING REPORT ---
KUB CLINICAL HISTORY: abd distention, constipation COMPARISON STUDY: No previous studies for comparison. FINDINGS: The soft tissues, psoas shadows, renal outlines and intestinal gas pattern appear normal. There is no evidence for bowel obstruction. No abnormal abdominal calcifications are seen. IMPRESSION: Normal study. The above report was generated using voice recognition software. It may contain grammatical, syntax or spelling errors. Electronically signed by: James Deutsch M.D. 03/11/2017 11:33 AM Dictated Date/Time: 03/11/2017 11:33 AM
[2017-03-11] MEDS: METHYLNALTREXONE BROMIDE INJ 12 MG/0.6 ML SYR SQ SCH (13:34)
--- NOTE | 2017-03-11 15:01 | Hospitalist Progress Note ---
Hospitalist Progress Note Date of Service Mar 11, 2017. (Liseth Hercules PA-C) Subjective Pt evaluation today including: conversation w/ patient, physical exam, chart review, lab review, review of studies, review of inpatient medication list Patient seen and evaluated. No acute events overnight. Reporting some increased epigastric pain with clear liquids but reporting this has subsided and feels that he is tolerating clears and would like to have clears for dinner. Did have 2 BMs today. Stated they were not a normal BM for him but also states he hasn't eaten much over the past few days. Updated him on his image findings. Plan to continue clears as tolerated and maybe advance tomorrow pending clinical course. Constitutional: No fever, No chills Respiratory: + shortness of breath (with deep inspiration - slightly improved) Cardiovascular: No chest pain Abdomen: + pain (epigastric), No nausea, No vomiting, No GI bleeding Musculoskeletal: No swelling, No calf pain Heme: No abnormal bleeding/bruising (Liseth Hercules, TAMERAC) Medications Current Inpatient Medications Medications (Trade) Dose Ordered Sig/Vinicio Route Start Time Stop Time Status Last Admin Dose Admin Ioversol (Optiray 320) 100 ml UD PRN IV 03/09/17 15:30 03/13/17 15:29 Ioversol (Optiray 320) 100 ml UD PRN IV 03/09/17 18:30 03/13/17 18:29 Aspirin (Ecotrin Tab) 81 mg DAILY PO 03/10/17 09:00 04/09/17 08:59 03/11/17 07:41 81 MG Atorvastatin Calcium (Lipitor Tab) 40 mg DAILY PO 03/10/17 09:00 04/09/17 08:59 03/11/17 07:41 40 MG Cetirizine HCl (zyrTEC TAB) 10 mg DAILY PO 03/10/17 09:00 04/09/17 08:59 03/11/17 07:42 10 MG Clopidogrel Bisulfate (plAVix TAB) 75 mg DAILY PO 03/10/17 09:00 04/09/17 08:59 03/11/17 07:41 75 MG Albuterol/ Ipratropium (Combivent Respimat Inh) 1 puffs QID INH 03/09/17 21:00 04/08/17 20:59 03/11/17 13:35 1 PUFFS Lisinopril (Zestril Tab) 5 mg DAILY PO 03/10/17 09:00 04/09/17 08:59 03/11/17 07:42 5 MG Metoprolol Tartrate (Lopressor Tab) 12.5 mg BID PO 03/09/17 21:00 04/08/17 20:59 03/11/17 07:41 12.5 MG Sertraline HCl (Zoloft Tab) 200 mg DAILY PO 03/10/17 09:00 04/09/17 08:59 03/11/17 07:41 200 MG Miscellaneous Information (Order Awaiting Action) 1 ea QS N/A 03/10/17 00:00 04/09/17 00:00 Pantoprazole Sodium (Protonix Tab) 40 mg BID PO 03/09/17 21:00 04/08/17 20:59 03/11/17 07:42 40 MG Albuterol Sulfate (Ventolin 0.083% 2.5MG/3ML Neb) 2.5 mg Q6R PRN INH 03/09/17 20:00 04/08/17 19:59 Acetaminophen (Tylenol Tab) 650 mg Q4H PRN PO 03/09/17 20:00 04/08/17 19:59 03/11/17 06:23 650 MG Al Hydrox/Mg Hydrox/Simethicone (Maalox Max Susp) 15 ml Q4H PRN PO 03/09/17 20:00 04/08/17 19:59 03/11/17 06:21 15 ML Magnesium Hydroxide (Milk Of Magnesia Susp) 30 ml Q6H PRN PO 03/09/17 20:00 04/08/17 19:59 Polyethylene (Miralax Powder Packet) 17 gm DAILY PRN PO 03/09/17 20:00 04/08/17 19:59 Ondansetron HCl (Zofran Inj) 4 mg Q6H PRN IV 03/09/17 20:00 04/08/17 19:59 Levofloxacin 750 mg/Prmx 150 ml @ 100 mls/hr Q24H IV 03/09/17 22:00 03/16/17 21:59 03/10/17 21:33 100 MLS/HR Lactated Ringer's 1,000 ml @ 150 mls/hr Q6H40M IV 03/10/17 14:45 04/09/17 14:44 03/11/17 10:44 200 MLS/HR Morphine Sulfate (MoRPHine SULFATE INJ) 2 mg Q3H PRN IV 03/10/17 17:00 03/24/17 16:59 03/11/17 14:05 2 MG Morphine Sulfate (MoRPHine SULFATE INJ) 4 mg Q3H PRN IV 03/10/17 17:00 03/24/17 16:59 Metronidazole (Flagyl Tab) 500 mg TID PO 03/11/17 10:00 03/21/17 09:59 03/11/17 13:35 500 MG Methylnaltrexone [place] (Relistor Inj) 12 mg Q2D@0900 SQ 03/11/17 12:45 04/10/17 12:44 03/11/17 13:34 12 MG (Liseth Hercules PA-C) Objective Vital Signs Date Time Temp Pulse Resp B/P (MAP) Pulse Ox O2 Delivery O2 Flow Rate FiO2 03/11/17 08:07 37.0 94 18 154/96 (115) 95 Room Air 03/11/17 08:00 Room Air 03/10/17 23:45 36.9 96 18 151/95 (113) 97 Room Air 03/10/17 23:40 Room Air 03/10/17 21:27 145/80 (101) 03/10/17 15:42 37.4 86 16 132/81 (98) 94 Room Air 03/10/17 15:15 Room Air (Liseth Hercules PA-C) Physical Exam General Appearance: WD/WN, no apparent distress Neck: supple, no JVD, trachea midline Respiratory/Chest: lungs clear, normal breath sounds, no respiratory distress, no accessory muscle use Cardiovascular: regular rate, rhythm, no gallop, no murmur Abdomen: normal bowel sounds, + distended, + tenderness (epigastric) Extremities: no pedal edema, no calf tenderness Neurologic/Psychiatric: alert Skin: normal color, warm/dry (Liseth Hercules, JAZZMINE-C) Laboratory Results Last 24 Hours Test 03/11/17 06:29 White Blood Count 13.99 K/uL Red Blood Count 4.71 M/uL Hemoglobin 14.5 g/dL Hematocrit 42.6 % Mean Corpuscular Volume 90.4 fL Mean Corpuscular Hemoglobin 30.8 pg Mean Corpuscular Hemoglobin Concent 34.0 g/dl RDW Standard Deviation 42.9 fL RDW Coefficient of Variation 13.0 % Platelet Count 169 K/uL Mean Platelet Volume 9.9 fL Sodium Level 134 mmol/L Potassium Level 3.8 mmol/L Chloride Level 99 mmol/L Carbon Dioxide Level 23 mmol/L Anion Gap 12.0 mmol/L Blood Urea Nitrogen 10 mg/dl Creatinine 0.95 mg/dl Est Creatinine Clear Calc Drug Dose 90.6 ml/min Estimated GFR () 100.4 Estimated GFR (Non- 86.7 BUN/Creatinine Ratio 11.0 Random Glucose 88 mg/dl Calcium Level 8.9 mg/dl Total Bilirubin 1.7 mg/dl Aspartate Amino Transf (AST/SGOT) 20 U/L Alanine Aminotransferase (ALT/SGPT) 28 U/L Alkaline Phosphatase 83 U/L Total Protein 7.4 gm/dl Albumin 3.1 gm/dl Globulin 4.3 gm/dl Albumin/Globulin Ratio 0.7 Lipase 466 U/L (Liseth Hercules, MIGUEL ANGEL) Assessment and Plan 61 y/o M Hx CAD - 3V CABG 05/08, HTN, HPL, COPD, fatty liver, fatty pancreas. Presents with abdominal distention and pain mostly at the RUQ - subcostal margin. He also describes a mild cough. He states he feels it is difficult to take a deep breath and that the abdominal pain worsens with inspiration. Initial labs are notable for an elevated lipase and an elevated D dimer. A CT abdomen did not confirm pancreatitis, although a mild colitis may be present. A CTA of the chest revealed a small R parenchymal infiltrate. The pt denies CP , SOB, nausea, vomiting, diarrhea or fevers. Abdominal Pain: Pancreatitis vs Colitis vs Ileus - Lipase trending down - will continue to treat with LR 150 mL/hr and pain control - Mesenteric dopplers limited but no significant signs of stenosis; Liver U/S reveals sludge and possible stone without acute cholecystitis; MRCP unremarkable other than fatty pancreas - possible need for connie in future; KUB suggesting ileus but no signs of obstruction - Can continue clear liquid diet and monitor tolerance - Continue to trend lipase and CMP - Protonix 40 mg BID - Relistor given - reporting he did have 2 BMs since administration - GI following - appreciate recommendations - continue hydration and pain management; outpatient EUS and possible consideration for connie Pleuritic CP - Possible Pneumonia: - Levaquin 750 mg daily and will add anaerobic coverage with Flagyl 500 mg TID given increasing leukocytosis and possible colitis -- Can likely D/C on Augmentin to cover lungs and GI Possible Melena: - Hgb stable and will monitor - guiac stools CAD S/P CABG x 3 and HTN: - ASA 81 mg daily, Plavix 75 mg daily, and Atorvastatin 40 mg daily - Lisinopril 5 mg daily and Metoprolol 12.5 mg BID COPD without Exacerbation: - Combivent QID and Ventolin PRN Code Status: FULL RESUSCITATION DVT Prophylaxis: SCDs Disposition: - Continue hydration and clear liquids - will re-evaluate for diet advancement Continued [facility] stay due to: multiple IV medications needed Discharge planning: home (Liseth Hercules, TAMERAC) PA Physician Supervision Note: I interviewed and examined the patient. Discussed with Liseth Hercules PAC and agree with findings and plan as documented in the note. Any exceptions or clarifications are listed here: None Patient here with fairly unexplained pancreatitis although has both fatty infiltration of liver and pancreas he does have some gallstones and sludge in his gallbladder but no evidence of common bile duct dilatation or significant LFT changes. Evaluation of his abdominal pain has had a mesenteric Doppler to determine if he has any mesenteric ischemia is been unrevealing and the patient is felt well with decline of his lipase from 6000-400 he however did have some increased discomfort with escalation of diet on 03/11 Vital signs are stable Abdominal exam has hyperactive bowel sounds soft mildly tender the epigastric and left upper quadrant Pancreatitis resolving gently advance diet follow lipase patient may need outpatient evaluation for possible cholecystectomy or consideration of EUS Patient with dietary consultation fatty liver while in the hospital GI medicine is increased cathartic agents feeling that constipation is also play for his discomfort Documented By: Natanael Silveira (Natanael Silveira M.D.)
[2017-03-11 15:32] VITALS: BP 132/85; PULSE 88; TEMP 36.9; O2SAT 92
[2017-03-11 15:38] VITALS: Ht 175.3 cm; Wt 87.5 kg
[2017-03-11] MEDS: LEVOFLOXACIN / D5W 750 MG in PREMIXED IN D5W 150 ML IV SCH (21:34)
[2017-03-11 23:15] VITALS: BP 109/79; PULSE 118; TEMP 37.5; O2SAT 94
[2017-03-12] MEDS: LACTATED RINGER'S 1000ML 1,000 ML IV SCH (01:54)
[2017-03-12 06:40] LABS: HEMATOCRIT 40.3 % (42-52); MEAN CELL VOLUME 89.6 fL (80-100); MEAN CORPUSCULAR HEMOGLOBIN 31.1 pg (25-34); MEAN CORPUSCULAR HGB CONC 34.7 g/dl (32-36); MEAN PLATELET VOLUME 10.3 fL (7.4-10.4); PLATELET COUNT 161 K/uL (130-400); RED CELL DISTRIBUTION WIDTH CV 12.8 % (11.5-14.5); RED CELL DISTRIBUTION WIDTH SD 41.9 fL (36.4-46.3); WHITE BLOOD COUNT 11.96 K/uL (4.8-10.8)
[2017-03-12 07:11] LABS: ALBUMIN 2.8 gm/dl (3.4-5.0); CALCIUM 8.7 mg/dl (8.5-10.1); CREATININE 0.78 mg/dl (0.60-1.40); POTASSIUM 3.8 mmol/L (3.5-5.1)
[2017-03-12 07:15] LABS: TOTAL PROTEIN 6.8 gm/dl (6.4-8.2)
[2017-03-12] MEDS: MoRPHine SULFATE 2 MG/ML CARP IV PRN ×4 (07:18→23:26)
[2017-03-12] MEDS: IPRATROPIUM BROMIDE/ALBUTEROL respimat INH INH SCH ×4 (07:20→20:19)
[2017-03-12] MEDS: PANTOprazole SOD 40 MG TAB PO SCH ×2 (07:20→20:20)
[2017-03-12] MEDS: SERTRALINE HCL 100 MG TAB PO SCH (07:21)
[2017-03-12] MEDS: CETIRIZINE HCL 10 MG TAB PO SCH (07:21)
[2017-03-12] MEDS: METRONIDAZOLE 500 MG TAB PO SCH ×3 (07:21→20:20)
[2017-03-12] MEDS: METOPROLOL TARTRATE 25 MG TAB PO SCH ×2 (07:21→20:21)
[2017-03-12] MEDS: ASPIRIN 81 MG ECTAB PO SCH (07:22)
[2017-03-12] MEDS: CLOPIDOGREL BISULFATE 75 MG TAB PO SCH (07:22)
[2017-03-12] MEDS: ATORVASTATIN 40 MG TAB PO SCH (07:22)
[2017-03-12] MEDS: LISINOPRIL 5 MG TAB PO SCH (07:22)
[2017-03-12 07:59] VITALS: BP 135/89; PULSE 92; TEMP 36.9; O2SAT 95
[2017-03-12] MEDS ORDERED: BISACODYL 10 MG SUPP PR STA (09:10)
--- NOTE | 2017-03-12 09:10 | Gastroenterology Progress Note ---
Progress Note Date of Service: Mar 12, 2017 Subjective Pt evaluation today including: conversation w/ patient, physical exam, chart review, lab review Pt was seen and evaluated, chart reviewed. Dose of relistor yesterday w/ 2 large , liquid stools. No black stool. No bloody stools. Notes slight relief of his distention, but it is still present. No longer having the upper abdomen burning sensation. No fever, chills, CP, SOB GB: yes ETOH: none Tobacco: none New medications: none CT ABD: Possible minimal colitis with slight reactive thickening of the mesentery. Diffuse fatty replacement of the pancreas.Normal appendix. Fatty replacement of the liver. CTA: No evidence for pulmonary embolus. Small parenchymal infiltrate right base. Chest XR: No acute findings MRCP 03/10/17: Liver is uniform throughout. Gallbladder is negative for distention.There is diffuse fatty replacement of the pancreas. Spleen is uniform. There isno significant upper abdominal adenopathy. Kidneys negative for hydronephrosis.The MRCP comparison study is unremarkable. There are no stenotic process nor is there evidence for filling defect. Pancreatic duct is unremarkable. Mesenteric Duplex 03/10/17: No evidence for significant stenotic process within the limitations of overlying bowel content. Review of Systems Constitutional: No fever, No chills Respiratory: No cough Cardiac: No chest pain Abdomen: No pain, No nausea, No vomiting, No diarrhea, No constipation, No GI bleeding Medications Current Inpatient Medications Medications (Trade) Dose Ordered Sig/Vinicio Route Start Time Stop Time Status Last Admin Dose Admin Ioversol (Optiray 320) 100 ml UD PRN IV 03/09/17 15:30 03/13/17 15:29 Ioversol (Optiray 320) 100 ml UD PRN IV 03/09/17 18:30 03/13/17 18:29 Aspirin (Ecotrin Tab) 81 mg DAILY PO 03/10/17 09:00 04/09/17 08:59 03/12/17 07:22 81 MG Atorvastatin Calcium (Lipitor Tab) 40 mg DAILY PO 03/10/17 09:00 04/09/17 08:59 03/12/17 07:22 40 MG Cetirizine HCl (zyrTEC TAB) 10 mg DAILY PO 03/10/17 09:00 04/09/17 08:59 03/12/17 07:21 10 MG Clopidogrel Bisulfate (plAVix TAB) 75 mg DAILY PO 03/10/17 09:00 04/09/17 08:59 03/12/17 07:22 75 MG Albuterol/ Ipratropium (Combivent Respimat Inh) 1 puffs QID INH 03/09/17 21:00 04/08/17 20:59 03/12/17 07:20 1 PUFFS Lisinopril (Zestril Tab) 5 mg DAILY PO 03/10/17 09:00 04/09/17 08:59 03/12/17 07:22 5 MG Metoprolol Tartrate (Lopressor Tab) 12.5 mg BID PO 03/09/17 21:00 04/08/17 20:59 03/12/17 07:21 12.5 MG Sertraline HCl (Zoloft Tab) 200 mg DAILY PO 03/10/17 09:00 04/09/17 08:59 03/12/17 07:21 200 MG Miscellaneous Information (Order Awaiting Action) 1 ea QS N/A 03/10/17 00:00 04/09/17 00:00 Pantoprazole Sodium (Protonix Tab) 40 mg BID PO 03/09/17 21:00 04/08/17 20:59 03/12/17 07:20 40 MG Albuterol Sulfate (Ventolin 0.083% 2.5MG/3ML Neb) 2.5 mg Q6R PRN INH 03/09/17 20:00 04/08/17 19:59 Acetaminophen (Tylenol Tab) 650 mg Q4H PRN PO 03/09/17 20:00 04/08/17 19:59 03/11/17 06:23 650 MG Al Hydrox/Mg Hydrox/Simethicone (Maalox Max Susp) 15 ml Q4H PRN PO 03/09/17 20:00 04/08/17 19:59 03/11/17 06:21 15 ML Magnesium Hydroxide (Milk Of Magnesia Susp) 30 ml Q6H PRN PO 03/09/17 20:00 04/08/17 19:59 Polyethylene (Miralax Powder Packet) 17 gm DAILY PRN PO 03/09/17 20:00 04/08/17 19:59 Ondansetron HCl (Zofran Inj) 4 mg Q6H PRN IV 03/09/17 20:00 04/08/17 19:59 Levofloxacin 750 mg/Prmx 150 ml @ 100 mls/hr Q24H IV 03/09/17 22:00 03/16/17 21:59 03/11/17 21:34 100 MLS/HR Lactated Ringer's 1,000 ml @ 100 mls/hr Q10H IV 03/10/17 14:45 04/09/17 14:44 03/12/17 01:54 100 MLS/HR Morphine Sulfate (MoRPHine SULFATE INJ) 2 mg Q3H PRN IV 03/10/17 17:00 03/24/17 16:59 03/12/17 07:18 2 MG Morphine Sulfate (MoRPHine SULFATE INJ) 4 mg Q3H PRN IV 03/10/17 17:00 03/24/17 16:59 Metronidazole (Flagyl Tab) 500 mg TID PO 03/11/17 10:00 03/21/17 09:59 03/12/17 07:21 500 MG Methylnaltrexone [place] (Relistor Inj) 12 mg Q2D@0900 SQ 03/11/17 12:45 04/10/17 12:44 03/11/17 13:34 12 MG Objective Vital Signs Date Time Temp Pulse Resp B/P (MAP) Pulse Ox O2 Delivery O2 Flow Rate FiO2 03/12/17 07:59 36.9 92 16 135/89 (104) 95 Room Air 03/12/17 07:45 Room Air 03/11/17 23:55 Room Air 03/11/17 23:15 37.5 118 16 109/79 (89) 94 Room Air 03/11/17 16:10 Room Air 03/11/17 15:32 36.9 88 20 132/85 (101) 92 Room Air Physical Exam General Appearance: no apparent distress Eyes: PERRL ENT: hearing grossly normal Neck: supple Respiratory/Chest: lungs clear, normal breath sounds Cardiovascular: regular rate, rhythm Abdomen: normal bowel sounds, non tender, + distended Neurologic/Psych: alert, normal mood/affect, oriented x 3 Skin: normal color Laboratory Results Last 24 Hours Test 03/12/17 06:18 White Blood Count 11.96 K/uL Red Blood Count 4.50 M/uL Hemoglobin 14.0 g/dL Hematocrit 40.3 % Mean Corpuscular Volume 89.6 fL Mean Corpuscular Hemoglobin 31.1 pg Mean Corpuscular Hemoglobin Concent 34.7 g/dl RDW Standard Deviation 41.9 fL RDW Coefficient of Variation 12.8 % Platelet Count 161 K/uL Mean Platelet Volume 10.3 fL Sodium Level 137 mmol/L Potassium Level 3.8 mmol/L Chloride Level 102 mmol/L Carbon Dioxide Level 24 mmol/L Anion Gap 11.0 mmol/L Blood Urea Nitrogen 8 mg/dl Creatinine 0.78 mg/dl Est Creatinine Clear Calc Drug Dose 110.3 ml/min Estimated GFR () 113.7 Estimated GFR (Non- 98.1 BUN/Creatinine Ratio 10.7 Random Glucose 103 mg/dl Calcium Level 8.7 mg/dl Total Bilirubin 1.0 mg/dl Aspartate Amino Transf (AST/SGOT) 19 U/L Alanine Aminotransferase (ALT/SGPT) 23 U/L Alkaline Phosphatase 72 U/L Total Protein 6.8 gm/dl Albumin 2.8 gm/dl Globulin 4.0 gm/dl Albumin/Globulin Ratio 0.7 Lipase 287 U/L Assessment and Plan 61 year old male w/ history of abd bloating x 1 month w/ abrupt onset upper abd pain, distention and nausea, no vomiting who presented through the ED, lipase is significantly elevated at 7000, with normal LFTs. He does not drink any ETOH , no tobacco products, no new medication. Will need to rule out biliary cause of acute pancreatitis w/ additional imaging. gallstone panc vs drug induced vs other. MRCP w/o stricture or filling defect, pt had clear liquids this AM and notes 50% improvement of his symptoms. He is more bloated and distended today. Pt slowly improving, narcotic requirement decreasing, adriano PO. He has evidence of ileus, likely from narcos, on imaging and exam. - D/c LR fluids - Advance to low fat diet - Analgesia PRN - Antiemetics PRN - Outpatient EUS - Suspected pneumonia treatment per primary service - Dulcolax suppository - Can have additional dose of relistor tomorrow if needed - GI will to sign off, please call with any questions or concerns. Attg add: I interviewed and exmained pt, reviewed chart and labs. Pt improved, although still reports some bloating and adriano inocencio clears. Adv diet as tolerated , agree with recs as above.
[2017-03-12] MEDS ORDERED: LEVOFLOXACIN 750 MG TAB PO ONE (13:30)
[2017-03-12 15:21] VITALS: BP 101/67; PULSE 97; TEMP 36.7; O2SAT 93
--- NOTE | 2017-03-12 16:04 | Hospitalist Progress Note ---
Hospitalist Progress Note Date of Service Mar 12, 2017. (Liseth Hercules PA-C) Subjective Pt evaluation today including: conversation w/ patient, physical exam, chart review, lab review, review of studies, review of inpatient medication list Patient seen and evaluated. No acute events overnight. Tolerating clears but still feels bloated with decreased appetite. Does want to try regular food and will advance to low fat diet. Had Dulcolax suppository and feels that he will be able to move his bowels soon. Reports 2 good stools yesterday after Relistor. Lipase is currently resolved. Leukocytosis is improving. Constitutional: No fever, No chills Respiratory: + problem reported (difficulty taking deep breath) Cardiovascular: No chest pain Abdomen: + constipation (slightly improving), + problem reported (+bloating) , No pain, No nausea, No vomiting, No diarrhea Musculoskeletal: No swelling, No calf pain Heme: No abnormal bleeding/bruising (Liseth Hercules PA-C) Medications Current Inpatient Medications Medications (Trade) Dose Ordered Sig/Vinicio Route Start Time Stop Time Status Last Admin Dose Admin Ioversol (Optiray 320) 100 ml UD PRN IV 03/09/17 15:30 03/13/17 15:29 Ioversol (Optiray 320) 100 ml UD PRN IV 03/09/17 18:30 03/13/17 18:29 Aspirin (Ecotrin Tab) 81 mg DAILY PO 03/10/17 09:00 04/09/17 08:59 03/12/17 07:22 81 MG Atorvastatin Calcium (Lipitor Tab) 40 mg DAILY PO 03/10/17 09:00 04/09/17 08:59 03/12/17 07:22 40 MG Cetirizine HCl (zyrTEC TAB) 10 mg DAILY PO 03/10/17 09:00 04/09/17 08:59 03/12/17 07:21 10 MG Clopidogrel Bisulfate (plAVix TAB) 75 mg DAILY PO 03/10/17 09:00 04/09/17 08:59 03/12/17 07:22 75 MG Albuterol/ Ipratropium (Combivent Respimat Inh) 1 puffs QID INH 03/09/17 21:00 04/08/17 20:59 03/12/17 13:33 1 PUFFS Lisinopril (Zestril Tab) 5 mg DAILY PO 03/10/17 09:00 04/09/17 08:59 03/12/17 07:22 5 MG Metoprolol Tartrate (Lopressor Tab) 12.5 mg BID PO 03/09/17 21:00 04/08/17 20:59 03/12/17 07:21 12.5 MG Sertraline HCl (Zoloft Tab) 200 mg DAILY PO 03/10/17 09:00 04/09/17 08:59 03/12/17 07:21 200 MG Miscellaneous Information (Order Awaiting Action) 1 ea QS N/A 03/10/17 00:00 04/09/17 00:00 Pantoprazole Sodium (Protonix Tab) 40 mg BID PO 03/09/17 21:00 04/08/17 20:59 03/12/17 07:20 40 MG Albuterol Sulfate (Ventolin 0.083% 2.5MG/3ML Neb) 2.5 mg Q6R PRN INH 03/09/17 20:00 04/08/17 19:59 Acetaminophen (Tylenol Tab) 650 mg Q4H PRN PO 03/09/17 20:00 04/08/17 19:59 03/11/17 06:23 650 MG Al Hydrox/Mg Hydrox/Simethicone (Maalox Max Susp) 15 ml Q4H PRN PO 03/09/17 20:00 04/08/17 19:59 03/11/17 06:21 15 ML Magnesium Hydroxide (Milk Of Magnesia Susp) 30 ml Q6H PRN PO 03/09/17 20:00 04/08/17 19:59 Polyethylene (Miralax Powder Packet) 17 gm DAILY PRN PO 03/09/17 20:00 04/08/17 19:59 Ondansetron HCl (Zofran Inj) 4 mg Q6H PRN IV 03/09/17 20:00 04/08/17 19:59 Morphine Sulfate (MoRPHine SULFATE INJ) 2 mg Q3H PRN IV 03/10/17 17:00 03/24/17 16:59 03/12/17 13:44 2 MG Morphine Sulfate (MoRPHine SULFATE INJ) 4 mg Q3H PRN IV 03/10/17 17:00 03/24/17 16:59 Metronidazole (Flagyl Tab) 500 mg TID PO 03/11/17 10:00 03/21/17 09:59 03/12/17 13:33 500 MG Methylnaltrexone [place] (Relistor Inj) 12 mg Q2D@0900 SQ 03/11/17 12:45 04/10/17 12:44 03/11/17 13:34 12 MG Levofloxacin (Levaquin Tab) 750 mg DAILY@11 PO 03/13/17 11:00 03/16/17 10:59 Hydrocortisone (Proctozone Hc 2.5% Crm) 1 appln Q6 EXT 03/12/17 18:00 04/11/17 17:59 (Liseth Hercules PA-C) Objective Vital Signs Date Time Temp Pulse Resp B/P (MAP) Pulse Ox O2 Delivery O2 Flow Rate FiO2 03/12/17 15:21 36.7 97 20 101/67 (78) 93 Room Air 03/12/17 07:59 36.9 92 16 135/89 (104) 95 Room Air 03/12/17 07:45 Room Air 03/11/17 23:55 Room Air 03/11/17 23:15 37.5 118 16 109/79 (89) 94 Room Air 03/11/17 16:10 Room Air (Liseth Hercules PA-C) Physical Exam General Appearance: WD/WN, no apparent distress Eyes: sclerae normal ENT: hearing grossly normal Neck: supple, no JVD Respiratory/Chest: lungs clear, normal breath sounds, no respiratory distress, no accessory muscle use Cardiovascular: regular rate, rhythm, no gallop, no murmur Abdomen: normal bowel sounds, non tender, + distended Extremities: no pedal edema, no calf tenderness Neurologic/Psychiatric: alert, oriented x 3 Skin: normal color, warm/dry (Liseth Hercules PA-C) Laboratory Results Last 24 Hours Test 03/12/17 06:18 White Blood Count 11.96 K/uL Red Blood Count 4.50 M/uL Hemoglobin 14.0 g/dL Hematocrit 40.3 % Mean Corpuscular Volume 89.6 fL Mean Corpuscular Hemoglobin 31.1 pg Mean Corpuscular Hemoglobin Concent 34.7 g/dl RDW Standard Deviation 41.9 fL RDW Coefficient of Variation 12.8 % Platelet Count 161 K/uL Mean Platelet Volume 10.3 fL Sodium Level 137 mmol/L Potassium Level 3.8 mmol/L Chloride Level 102 mmol/L Carbon Dioxide Level 24 mmol/L Anion Gap 11.0 mmol/L Blood Urea Nitrogen 8 mg/dl Creatinine 0.78 mg/dl Est Creatinine Clear Calc Drug Dose 110.3 ml/min Estimated GFR () 113.7 Estimated GFR (Non- 98.1 BUN/Creatinine Ratio 10.7 Random Glucose 103 mg/dl Calcium Level 8.7 mg/dl Total Bilirubin 1.0 mg/dl Aspartate Amino Transf (AST/SGOT) 19 U/L Alanine Aminotransferase (ALT/SGPT) 23 U/L Alkaline Phosphatase 72 U/L Total Protein 6.8 gm/dl Albumin 2.8 gm/dl Globulin 4.0 gm/dl Albumin/Globulin Ratio 0.7 Lipase 287 U/L (Liseth Hercules, [employer]) Assessment and Plan 61 y/o M Hx CAD - 3V CABG 05/08, HTN, HPL, COPD, fatty liver, fatty pancreas. Presents with abdominal distention and pain mostly at the RUQ - subcostal margin. He also describes a mild cough. He states he feels it is difficult to take a deep breath and that the abdominal pain worsens with inspiration. Initial labs are notable for an elevated lipase and an elevated D dimer. A CT abdomen did not confirm pancreatitis, although a mild colitis may be present. A CTA of the chest revealed a small R parenchymal infiltrate. The pt denies CP , SOB, nausea, vomiting, diarrhea or fevers. Abdominal Pain: Pancreatitis vs Colitis vs Ileus - Lipase WNL - no abdominal pain today but continues with bloating that he feels is slightly improved - Mesenteric dopplers limited but no significant signs of stenosis; Liver U/S reveals sludge and possible stone without acute cholecystitis; MRCP unremarkable other than fatty pancreas - possible need for connie in future; KUB suggesting ileus but no signs of obstruction - Wants to try solid food and will advance to low fat diet - CMP in AM - Protonix 40 mg BID - Relistor given - reporting he did have 2 BMs since administration; Had Dulcolax suppository and will monitor response; Miralax PRN - GI signed off - outpatient EUS and possible consideration for connie Pleuritic CP/SOB from Limited Inspiration from Bloating - Possible Pneumonia: - Levaquin 750 mg daily and will add anaerobic coverage with Flagyl 500 mg TID given initial increasing leukocytosis and possible colitis -- Can likely D/C on Augmentin to cover lungs and GI Possible Melena: - Hgb stable and will monitor; guiac stools CAD S/P CABG x 3 and HTN: - ASA 81 mg daily, Plavix 75 mg daily, and Atorvastatin 40 mg daily - Lisinopril 5 mg daily and Metoprolol 12.5 mg BID COPD without Exacerbation: - Combivent QID and Ventolin PRN Code Status: FULL RESUSCITATION DVT Prophylaxis: SCDs Disposition: - Monitor for diet tolerance - possible D/C tomorrow Continued [facility] stay due to: multiple IV medications needed Discharge planning: home (Liseth Hercules, PA-C) Attending Attestation: Pt seen/examined, chart reviewed, care plan d/w JAZZMINE Hercules. I agree w/ the [place] components of her documentation. Pt reports he had BRBPR w/ wiping after his last bowel movement. Did not have blood mixed in with stool. Abd bloating is better. Passing plenty of flatus. And abdominal pain is improved. VSS afebrile gen - nad heart - RRR lungs - CTA b/l abd - mild-moderate distension, BS+ (high pitched), mild tenderness epigastric region, no HSM rectal - question very small hemorrhoid between 6 and 8 o'clock, no gross blood , no masses ext - no edema lipase wnl BMP acceptable minimal WBC count elevation A/P: acute pancreatitis - resolved. ileus 2nd to pancreatitis - improving. hypokalemia - replace. BRBPR - probably due to small hemorrhoid; anusol cream q6h prn. progressing. Vanessa HO MD (Noe Ho MD)
[2017-03-12] MEDS: HYDROCORTISONE HC 2.5% CRM 30GM TUBE EXT SCH ×2 (17:19→23:29)
[2017-03-12 20:22] VITALS: BP 112/69; PULSE 100
[2017-03-12 23:03] VITALS: BP 114/80; PULSE 90; TEMP 37; O2SAT 94
[2017-03-13] MEDS: HYDROCORTISONE HC 2.5% CRM 30GM TUBE EXT SCH ×3 (05:44→17:08)
[2017-03-13 07:21] VITALS: BP 130/78; PULSE 84; TEMP 37; O2SAT 95
[2017-03-13 07:26] LABS: HEMATOCRIT 39.7 % (42-52); HEMOGLOBIN 13.5 g/dL (14.0-18.0); MEAN CELL VOLUME 90.4 fL (80-100); MEAN CORPUSCULAR HEMOGLOBIN 30.8 pg (25-34); MEAN PLATELET VOLUME 10.6 fL (7.4-10.4); PLATELET COUNT 194 K/uL (130-400); RED CELL DISTRIBUTION WIDTH SD 42.9 fL (36.4-46.3); WHITE BLOOD COUNT 12.98 K/uL (4.8-10.8)
[2017-03-13 07:30] VITALS: O2SAT 95
[2017-03-13] MEDS: MoRPHine SULFATE 2 MG/ML CARP IV PRN ×3 (07:42→20:07)
[2017-03-13] MEDS: IPRATROPIUM BROMIDE/ALBUTEROL respimat INH INH SCH ×4 (09:06→21:36)
[2017-03-13] MEDS: PANTOprazole SOD 40 MG TAB PO SCH ×2 (09:06→21:36)
[2017-03-13] MEDS: SERTRALINE HCL 100 MG TAB PO SCH (09:06)
[2017-03-13] MEDS: METRONIDAZOLE 500 MG TAB PO SCH ×3 (09:06→21:36)
[2017-03-13] MEDS: METOPROLOL TARTRATE 25 MG TAB PO SCH ×2 (09:07→21:36)
[2017-03-13] MEDS: ATORVASTATIN 40 MG TAB PO SCH (09:08)
[2017-03-13] MEDS: LISINOPRIL 5 MG TAB PO SCH (09:08)
[2017-03-13] MEDS: ASPIRIN 81 MG ECTAB PO SCH (09:09)
[2017-03-13] MEDS: CETIRIZINE HCL 10 MG TAB PO SCH (09:09)
[2017-03-13] MEDS: CLOPIDOGREL BISULFATE 75 MG TAB PO SCH (09:09)
[2017-03-13] MEDS: METHYLNALTREXONE BROMIDE INJ 12 MG/0.6 ML SYR SQ SCH (09:11)
[2017-03-13] MEDS: LEVOFLOXACIN 750 MG TAB PO SCH (10:54)
--- NOTE | 2017-03-13 12:22 | DIAGNOSTIC IMAGING REPORT ---
PA CHEST WITH ABDOMINAL SERIES CLINICAL HISTORY: Abdominal distention. FINDINGS: A PA chest radiograph is compared to study dated 03/09/2017 and correlated with chest CT dated 03/09/2017. The patient is status post midline sternotomy. Heart is normal in size and there is atherosclerotic calcification of the thoracic aorta. Linear atelectasis is present in the right lower lung. No airspace consolidation is seen typical for pneumonia and there is no large pleural effusion. No pneumothorax is seen. The skeletal structures are osteopenic. The bony thorax is grossly intact. Supine and erect abdominal radiographs are compared to study dated 03/11/2017 and correlated with abdominal CT dated 03/09/2017. There is a nonobstructed abdominal bowel gas pattern. No evidence of intraperitoneal free air is seen. There are no abnormal abdominal calcifications. Mild lumbosacral spondylosis is observed. The lumbosacral spine and bony pelvis appear intact. IMPRESSION: 1. No active disease in the chest. 2. Nonobstructed abdominal bowel gas pattern. Electronically signed by: Roni Dawkins M.D. 03/13/2017 12:21 PM Dictated Date/Time: 03/13/2017 12:19 PM
[2017-03-13] MEDS ORDERED: BISACODYL 5 MG TABEC PO ONE (12:45)
[2017-03-13 15:00] VITALS: BP 102/66; PULSE 92; TEMP 36.8; O2SAT 95
[2017-03-13 21:33] VITALS: BP 124/79; PULSE 90
--- NOTE | 2017-03-13 21:49 | Progress Note ---
Subjective Date of Service: Mar 13, 2017. Subjective Pt evaluation today including: conversation w/ patient, physical exam, chart review, lab review, review of studies (abd x-rays), review of inpatient medication list Pain: still bloated, and still w/ mild abd discomfort PO Intake: tolerating diet, but it still gives him discomfort patient has not had any bowel movement since yesterday but IS passing flatus no nausea no emesis but bloating and discomfort of abdomen remain EMR shows he is still requiring multiple does of IV morphine each day Problem List Medical Problems: (1) Burning chest pain Status: Acute (2) Pancreatitis Status: Acute (3) SOB (shortness of breath) Status: Acute Review of Systems Constitutional: No fever, No chills Respiratory: No shortness of breath, No dyspnea on exertion Cardiac: No chest pain Abdomen: + see HPI, + pain Objective Vital Signs Date Time Temp Pulse Resp B/P (MAP) Pulse Ox O2 Delivery O2 Flow Rate FiO2 03/13/17 21:33 90 124/79 (94) 03/13/17 15:00 36.8 92 18 102/66 (78) 95 Room Air 03/13/17 07:30 95 Room Air 03/13/17 07:21 37.0 84 19 130/78 (95) 95 Room Air 03/12/17 23:30 Room Air 03/12/17 23:03 37.0 90 20 114/80 (91) 94 Room Air Physical Exam General Appearance: no apparent distress ENT: pharynx normal Neck: no JVD Respiratory/Chest: lungs clear, no respiratory distress, no accessory muscle use Cardiovascular: regular rate, rhythm, no gallop, no murmur Abdomen: + distended (marked, with tenderness in epigastric region; tympanic to percussion; bowel sounds high pitched; no HSM; no RUQ pain) Extremities: no pedal edema Neurologic/Psychiatric: alert, oriented x 3 Laboratory Results Last 24 Hours Test 03/13/17 06:32 White Blood Count 12.98 K/uL Red Blood Count 4.39 M/uL Hemoglobin 13.5 g/dL Hematocrit 39.7 % Mean Corpuscular Volume 90.4 fL Mean Corpuscular Hemoglobin 30.8 pg Mean Corpuscular Hemoglobin Concent 34.0 g/dl RDW Standard Deviation 42.9 fL RDW Coefficient of Variation 13.0 % Platelet Count 194 K/uL Mean Platelet Volume 10.6 fL Assessment and Plan 61yo male - 1. acute pancreatitis - biochemically resolved, but still with abdominal pain. Uncertain if residual pain is pancreatitis-related vs the ileus vs biliary in nature. Repeat LFTs and lipase in AM. Check abdominal x-ray series today to ensure no worsening of the ileus. RUQ u/s this admission with biliary sludge and question of a gallstone. Suspect pancreatitis is due to gall bladder disease. 2. ileus - 2nd to #1 - clinically unchanged. Still quite distended on exam. Still with abd pain. X-rays. GI has him on relistor but not much improvement in his current symptoms. Repeat BMP/mag in am to ensure normal lytes. 3. hypokalemia - replaced and now resolved. 4. CAD w/ prior h/o CABG - cont ASA 81 mg daily, Plavix 75 mg daily, Atorvastatin 40 mg daily, Lisinopril 5 mg daily and Metoprolol 12.5 mg BID No ischemic symptoms at this time. 5. ?colitis on most recent CT - doubt such, but cannot rule out 100%. Flagyl added by Sayra Delisa yesterday. Levaquin will cover gram negatives if in fact there is small element of colitis. 6. ?RLL pneumonia - on levaquin for such. 7. COPD without Exacerbation - continue inhalers. Stable. 8. DVT proph - start lovenox in AM. 9. FEN - allow diet as tolerated but if GI symptoms persist cut back to clears or NPO status. Repeat all lytes in am. I am concerned by his ongoing GI symptoms. Continued [facility] stay due to: inadequate po fluid intake, inadequate oral pain control, multiple IV medications needed Discharge planning: home
[2017-03-13 23:30] VITALS: BP 100/64; PULSE 96; TEMP 37.1; O2SAT 93
[2017-03-14] MEDS: MoRPHine SULFATE 2 MG/ML CARP IV PRN ×4 (00:13→18:50)
[2017-03-14] MEDS: HYDROCORTISONE HC 2.5% CRM 30GM TUBE EXT SCH ×5 (06:00→23:33)
[2017-03-14 06:03] LABS: BASO % 0.4 %; BASO ABS # 0.04 K/uL (0-0.2); EOS % 3.2 %; EOS ABS # 0.33 K/uL (0-0.5); HEMATOCRIT 38.6 % (42-52); HEMOGLOBIN 12.9 g/dL (14.0-18.0); IG# 0.04 K/uL (0.00-0.02); LYMPH % 14.6 %; LYMPH ABS # 1.51 K/uL (1.2-3.4); MEAN CELL VOLUME 90.8 fL (80-100); MEAN CORPUSCULAR HEMOGLOBIN 30.4 pg (25-34); MEAN CORPUSCULAR HGB CONC 33.4 g/dl (32-36); MEAN PLATELET VOLUME 10.3 fL (7.4-10.4); MONO ABS # 0.83 K/uL (0.11-0.59); NEUT % 73.4 %; NEUT ABS # 7.58 K/uL (1.4-6.5); PLATELET COUNT 209 K/uL (130-400); RED CELL DISTRIBUTION WIDTH CV 13.3 % (11.5-14.5); WHITE BLOOD COUNT 10.33 K/uL (4.8-10.8)
[2017-03-14 06:40] LABS: ALBUMIN 2.6 gm/dl (3.4-5.0); CALCIUM 8.3 mg/dl (8.5-10.1); CREATININE 1.18 mg/dl (0.60-1.40); POTASSIUM 3.6 mmol/L (3.5-5.1)
[2017-03-14 06:46] LABS: TOTAL PROTEIN 6.5 gm/dl (6.4-8.2)
[2017-03-14 07:45] VITALS: BP 129/84; PULSE 84; TEMP 36.8; O2SAT 94
[2017-03-14] MEDS: CLOPIDOGREL BISULFATE 75 MG TAB PO SCH (08:05)
[2017-03-14] MEDS: IPRATROPIUM BROMIDE/ALBUTEROL respimat INH INH SCH ×4 (08:05→21:47)
[2017-03-14] MEDS: METRONIDAZOLE 500 MG TAB PO SCH ×2 (08:06→13:38)
[2017-03-14] MEDS: CETIRIZINE HCL 10 MG TAB PO SCH (08:06)
[2017-03-14] MEDS: PANTOprazole SOD 40 MG TAB PO SCH ×2 (08:06→21:48)
[2017-03-14] MEDS: ATORVASTATIN 40 MG TAB PO SCH (08:06)
[2017-03-14] MEDS: ASPIRIN 81 MG ECTAB PO SCH (08:06)
[2017-03-14] MEDS: LISINOPRIL 5 MG TAB PO SCH (08:07)
[2017-03-14] MEDS: METOPROLOL TARTRATE 25 MG TAB PO SCH ×2 (08:07→21:49)
[2017-03-14] MEDS: SERTRALINE HCL 100 MG TAB PO SCH (08:07)
[2017-03-14] MEDS: LEVOFLOXACIN 750 MG TAB PO SCH (11:24)
[2017-03-14 15:24] VITALS: BP 118/71; PULSE 78; TEMP 36.7; O2SAT 97
[2017-03-14] MEDS: NSS + 20MEQ KCL 1000ML 1,000 ML IV SCH (18:40)
--- NOTE | 2017-03-14 19:01 | Medical Consult ---
Consultation Date of Consultation: Mar 14, 2017. Attending Physician: Noe Ramirez MD Reason for Consultation: Possible early acute cholecystitis History of Present Illness Mr. Mckeon is a 61-year-old male with past medical history significant for COPD , CAD [facility]/p [facility] who presented to ED last Wednesday with complaints of acute abdominal pain (epigastric that radiated to RUQ ) and bloating. Patient states that he had not been feeling well (mild abdominal pain, bloating) for a couple of weeks prior to presenting to ED. General surgery was consulted to evaluate for possible early acute cholecystitis. On admission patient's lipase was elevated at 7000, bilirubin 1.7. CT scan (03/09/17)- 1. Possible minimal colitis with slight reactive thickening of the mesentery.2. Diffuse fatty replacement of the pancreas.3. Normal appendix.4. Fatty replacement of the liver. CTA (03/09/17)- 1. No evidence for pulmonary embolus. 2. Small parenchymal infiltrate right base. Liver US (03/10/17)-1. Pancreas obscured by bowel gas. 2. Mild gallbladder sludge with 7 mm nonshadowing echogenic focus of the gallbladder neck suggesting possible cholelithiasis. No sonographic evidence of acute cholecystitis. 3. No biliary ductal dilation. MRCP (03/10/17) -Diffuse fatty infiltration of the pancreas. Otherwise negative study. KUB (03/11/17)- Normal US Abdomen (03/11/17)- No evidence for significant stenotic process within the limitations of overlying bowel content. Patient has been seen by GI. Patient's lipase has been trending down- 205 today. Bili 0.4. WBC 10.33. Patient reports that he was started on a more substantial diet yesterday- had beef and caused him to become nauseous, was started back on liquids and is doing better. Denies nausea. Reports some lingering epigastric tenderness. Patient moved bowels earlier in the day- denies diarrhea. Denies previous abdominal surgeries. Past Medical/Surgical History Medical Problems: (1) Burning chest pain Status: Acute (2) Pancreatitis Status: Acute (3) SOB (shortness of breath) Status: Acute Social History Smoking Status: Former Smoker Drug Use: none Marital Status: Housing Status: lives with significant other Occupation Status: retired Allergies Coded Allergies: No Known Allergies (Unverified , 03/09/17) Current Inpatient Medications Current Inpatient Medications Medications (Trade) Dose Ordered Sig/Vinicio Route Start Time Stop Time Status Last Admin Dose Admin Aspirin (Ecotrin Tab) 81 mg DAILY PO 03/10/17 09:00 04/09/17 08:59 03/14/17 08:06 81 MG Atorvastatin Calcium (Lipitor Tab) 40 mg DAILY PO 03/10/17 09:00 04/09/17 08:59 03/14/17 08:06 40 MG Cetirizine HCl (zyrTEC TAB) 10 mg DAILY PO 03/10/17 09:00 04/09/17 08:59 03/14/17 08:06 10 MG Clopidogrel Bisulfate (plAVix TAB) 75 mg DAILY PO 03/10/17 09:00 04/09/17 08:59 03/14/17 08:05 75 MG Albuterol/ Ipratropium (Combivent Respimat Inh) 1 puffs QID INH 03/09/17 21:00 04/08/17 20:59 03/14/17 13:38 1 PUFFS Lisinopril (Zestril Tab) 5 mg DAILY PO 03/10/17 09:00 04/09/17 08:59 03/14/17 08:07 5 MG Metoprolol Tartrate (Lopressor Tab) 12.5 mg BID PO 03/09/17 21:00 04/08/17 20:59 03/14/17 08:07 12.5 MG Sertraline HCl (Zoloft Tab) 200 mg DAILY PO 03/10/17 09:00 04/09/17 08:59 03/14/17 08:07 200 MG Miscellaneous Information (Order Awaiting Action) 1 ea QS N/A 03/10/17 00:00 04/09/17 00:00 Pantoprazole Sodium (Protonix Tab) 40 mg BID PO 03/09/17 21:00 04/08/17 20:59 03/14/17 08:06 40 MG Albuterol Sulfate (Ventolin 0.083% 2.5MG/3ML Neb) 2.5 mg Q6R PRN INH 03/09/17 20:00 04/08/17 19:59 Acetaminophen (Tylenol Tab) 650 mg Q4H PRN PO 03/09/17 20:00 04/08/17 19:59 03/11/17 06:23 650 MG Al Hydrox/Mg Hydrox/Simethicone (Maalox Max Susp) 15 ml Q4H PRN PO 03/09/17 20:00 04/08/17 19:59 03/11/17 06:21 15 ML Magnesium Hydroxide (Milk Of Magnesia Susp) 30 ml Q6H PRN PO 03/09/17 20:00 04/08/17 19:59 Polyethylene (Miralax Powder Packet) 17 gm DAILY PRN PO 03/09/17 20:00 04/08/17 19:59 Ondansetron HCl (Zofran Inj) 4 mg Q6H PRN IV 03/09/17 20:00 04/08/17 19:59 Morphine Sulfate (MoRPHine SULFATE INJ) 2 mg Q3H PRN IV 03/10/17 17:00 03/24/17 16:59 03/14/17 13:39 2 MG Morphine Sulfate (MoRPHine SULFATE INJ) 4 mg Q3H PRN IV 03/10/17 17:00 03/24/17 16:59 Methylnaltrexone [place] (Relistor Inj) 12 mg Q2D@0900 SQ 03/11/17 12:45 04/10/17 12:44 03/13/17 09:11 12 MG Hydrocortisone (Proctozone Hc 2.5% Crm) 1 appln Q6 EXT 03/12/17 18:00 04/11/17 17:59 Ciprofloxacin/ Dextrose 400 mg/ Prmx 200 ml @ 100 mls/hr Q12 IV 03/14/17 21:00 03/24/17 20:59 Metronidazole 500 mg/Prmx 100 ml @ 100 mls/hr Q8H IV 03/14/17 21:00 03/21/17 20:59 Potassium Chloride/Sodium Chloride 1,000 ml @ 75 mls/hr [id number] IV 03/14/17 16:00 04/13/17 15:59 Review of Systems Constitutional: No fever, No chills, No weight loss, No weakness, No fatigue Abdomen: + pain, No nausea, No vomiting, No diarrhea Physical Exam Date Time Temp Pulse Resp B/P (MAP) Pulse Ox O2 Delivery O2 Flow Rate FiO2 03/14/17 15:24 36.7 78 18 118/71 (87) 97 Room Air 03/14/17 08:00 Room Air 03/14/17 07:45 36.8 84 18 129/84 (99) 94 Room Air 03/14/17 00:10 Room Air 03/13/17 23:30 37.1 96 16 100/64 (76) 93 Room Air 03/13/17 21:33 90 124/79 (94) 03/13/17 15:45 Room Air General Appearance: WD/WN, no apparent distress Abdomen/GI: + tenderness (tednerness to palpation in epigastric region into RUQ. ), + distended Skin: normal color, warm/dry, no rash Laboratory Results Last 24 Hours Test 03/14/17 05:30 White Blood Count 10.33 K/uL Red Blood Count 4.25 M/uL Hemoglobin 12.9 g/dL Hematocrit 38.6 % Mean Corpuscular Volume 90.8 fL Mean Corpuscular Hemoglobin 30.4 pg Mean Corpuscular Hemoglobin Concent 33.4 g/dl Platelet Count 209 K/uL Mean Platelet Volume 10.3 fL Neutrophils (%) (Auto) 73.4 % Lymphocytes (%) (Auto) 14.6 % Monocytes (%) (Auto) 8.0 % Eosinophils (%) (Auto) 3.2 % Basophils (%) (Auto) 0.4 % Neutrophils # (Auto) 7.58 K/uL Lymphocytes # (Auto) 1.51 K/uL Monocytes # (Auto) 0.83 K/uL Eosinophils # (Auto) 0.33 K/uL Basophils # (Auto) 0.04 K/uL RDW Standard Deviation 44.0 fL RDW Coefficient of Variation 13.3 % Immature Granulocyte % (Auto) 0.4 % Immature Granulocyte # (Auto) 0.04 K/uL Sodium Level 138 mmol/L Potassium Level 3.6 mmol/L Chloride Level 103 mmol/L Carbon Dioxide Level 28 mmol/L Anion Gap 7.0 mmol/L Blood Urea Nitrogen 18 mg/dl Creatinine 1.18 mg/dl Est Creatinine Clear Calc Drug Dose 72.9 ml/min Estimated GFR () 77.3 Estimated GFR (Non- 66.7 BUN/Creatinine Ratio 15.3 Random Glucose 126 mg/dl Calcium Level 8.3 mg/dl Magnesium Level 2.1 mg/dl Total Bilirubin 0.4 mg/dl Direct Bilirubin 0.1 mg/dl Aspartate Amino Transf (AST/SGOT) 28 U/L Alanine Aminotransferase (ALT/SGPT) 26 U/L Alkaline Phosphatase 74 U/L Total Protein 6.5 gm/dl Albumin 2.6 gm/dl Lipase 205 U/L Assessment & Plan 61-year-old male admitted with abdominal distention, lipase 7000, Tot Bili 1.7, normal LFTs Imaging reviewed. Mild gallbladder sludge with 7 mm nonshadowing echogenic focus of the gallbladder neck suggesting possible cholelithiasis. No sonographic evidence of acute cholecystitis. Labs improving- Lipase 205, Tot Bili 0.4 Patient reports pain is controlled- mild tenderness in epigastric and RUQ. Patient downgraded to clear liquid diet after not tolerating regular diet. Denies nausea or vomiting at this time. Discussed possibility of Cholecystectomy with patient and family. Discussed risks of surgery with patient. Will discuss with Dr. Walters.
--- NOTE | 2017-03-14 21:01 | Progress Note ---
Subjective Date of Service: Mar 14, 2017. Subjective Pt evaluation today including: conversation w/ patient, conversation w/ family ( at bedside), physical exam, chart review, lab review, conversation w/ internal consultant (gen surgery), review of inpatient medication list Pain: upper abdominal, worse with eating (stabbing, sharp) PO Intake: eating regular food Voiding: no voiding problems review of EMR shows he is using morphine 5-7x's per 24 hour period he states that about 20 min after eating he gets pain in the RUQ/epigastric region pain resolves w/ morphine no nausea or emesis had soft bowel movement just before my arrival and is passing plenty of flatus but this has not made him feel much different Problem List Medical Problems: (1) Burning chest pain Status: Acute (2) Pancreatitis Status: Acute (3) SOB (shortness of breath) Status: Acute Review of Systems Constitutional: No fever Respiratory: No shortness of breath, No dyspnea on exertion Cardiac: No chest pain Abdomen: + pain, No nausea, No vomiting, No GI bleeding Objective Vital Signs Date Time Temp Pulse Resp B/P (MAP) Pulse Ox O2 Delivery O2 Flow Rate FiO2 03/14/17 15:24 36.7 78 18 118/71 (87) 97 Room Air 03/14/17 08:00 Room Air 03/14/17 07:45 36.8 84 18 129/84 (99) 94 Room Air 03/14/17 00:10 Room Air 03/13/17 23:30 37.1 96 16 100/64 (76) 93 Room Air 03/13/17 21:33 90 124/79 (94) Physical Exam General Appearance: no apparent distress ENT: pharynx normal Neck: no JVD Respiratory/Chest: lungs clear, no respiratory distress, no accessory muscle use Cardiovascular: regular rate, rhythm, no gallop, no murmur Abdomen: normal bowel sounds, no organomegaly, + distended (mild, slightly better than yesterday), + tenderness (RUQ/high epigastric area ) Extremities: no pedal edema Neurologic/Psychiatric: alert, oriented x 3 Laboratory Results Last 24 Hours Test 03/14/17 05:30 White Blood Count 10.33 K/uL Red Blood Count 4.25 M/uL Hemoglobin 12.9 g/dL Hematocrit 38.6 % Mean Corpuscular Volume 90.8 fL Mean Corpuscular Hemoglobin 30.4 pg Mean Corpuscular Hemoglobin Concent 33.4 g/dl Platelet Count 209 K/uL Mean Platelet Volume 10.3 fL Neutrophils (%) (Auto) 73.4 % Lymphocytes (%) (Auto) 14.6 % Monocytes (%) (Auto) 8.0 % Eosinophils (%) (Auto) 3.2 % Basophils (%) (Auto) 0.4 % Neutrophils # (Auto) 7.58 K/uL Lymphocytes # (Auto) 1.51 K/uL Monocytes # (Auto) 0.83 K/uL Eosinophils # (Auto) 0.33 K/uL Basophils # (Auto) 0.04 K/uL RDW Standard Deviation 44.0 fL RDW Coefficient of Variation 13.3 % Immature Granulocyte % (Auto) 0.4 % Immature Granulocyte # (Auto) 0.04 K/uL Sodium Level 138 mmol/L Potassium Level 3.6 mmol/L Chloride Level 103 mmol/L Carbon Dioxide Level 28 mmol/L Anion Gap 7.0 mmol/L Blood Urea Nitrogen 18 mg/dl Creatinine 1.18 mg/dl Est Creatinine Clear Calc Drug Dose 72.9 ml/min Estimated GFR () 77.3 Estimated GFR (Non- 66.7 BUN/Creatinine Ratio 15.3 Random Glucose 126 mg/dl Calcium Level 8.3 mg/dl Magnesium Level 2.1 mg/dl Total Bilirubin 0.4 mg/dl Direct Bilirubin 0.1 mg/dl Aspartate Amino Transf (AST/SGOT) 28 U/L Alanine Aminotransferase (ALT/SGPT) 26 U/L Alkaline Phosphatase 74 U/L Total Protein 6.5 gm/dl Albumin 2.6 gm/dl Lipase 205 U/L Assessment and Plan 61yo male - 1. acute pancreatitis - biochemically resolved. Suspect 2nd to gall bladder disease. Patient does not drink etoh. Triglycerides/calcium were wnl. Still having abdominal pain - I believe the pain is not pancreatic in nature or from the ileus but perhaps from a brewing acute cholecystitis? Most recent imaging of gall bladder with sludge and probable stone but did not show CBD dilatation, wall thickening, etc. Repeat LFTs and lipase today normal. x-rays of abdomen yesterday wnl. 2. ileus - 2nd to #1 - clinically improved (+flatus, +stool). Less distension on exam today. Still with abd pain. See discussion in #1 above. 3. hypokalemia - replaced and now resolved. 4. CAD w/ prior h/o CABG - cont ASA 81 mg daily, Plavix 75 mg daily, Atorvastatin 40 mg daily, Lisinopril 5 mg daily and Metoprolol 12.5 mg BID No ischemic symptoms at this time. 5. ?colitis on most recent CT - doubt such. Pain is high in the abdomen and not having watery stools, bloody stools, etc. 6. ?RLL pneumonia - not having any symptoms of pneumonia; stop levaquin. 7. COPD - continue inhalers. Stable. 8. DVT proph - heparin 5000 TID. 9. FEN - restrict diet to clears, restart fluids, repeat BMP in am. 10. gall bladder sludge/possible stone, with ? early acute cholecystitis - I called and spoke with general surgery communication consultant about my concerns; they will consult. Restrict diet to clears. Cipro/flagyl IV. LFTs/lipase nl today. Continued [facility] stay due to: inadequate po fluid intake, inadequate oral pain control, multiple IV medications needed, other (need for cholecystectomy? ) Discharge planning: home
[2017-03-14] MEDS: CIPROFLOXACIN / D5W 400 MG in PREMIXED IN D5W 200 ML IV SCH (21:47)
[2017-03-14] MEDS: METRONIDAZOLE / NSS 500 MG in PREMIXED NSS 100 ML IV SCH (21:47)
[2017-03-14 22:53] VITALS: BP 117/77; PULSE 88; TEMP 37; O2SAT 94
[2017-03-14] MEDS: HEPARIN SOD 5000 UNIT/0.5 ML CARP SQ SCH (23:26)
[2017-03-14 23:30] VITALS: O2SAT 94
[2017-03-15] MEDS: MoRPHine SULFATE 2 MG/ML CARP IV PRN ×4 (01:21→16:48)
[2017-03-15] MEDS: METRONIDAZOLE / NSS 500 MG in PREMIXED NSS 100 ML IV SCH ×2 (05:32→12:51)
[2017-03-15] MEDS: NSS + 20MEQ KCL 1000ML 1,000 ML IV SCH (05:32)
[2017-03-15] MEDS: HYDROCORTISONE HC 2.5% CRM 30GM TUBE EXT SCH ×2 (05:33→12:00)
[2017-03-15] MEDS: HEPARIN SOD 5000 UNIT/0.5 ML CARP SQ SCH ×2 (06:18→14:42)
[2017-03-15 07:02] LABS: ALBUMIN 2.6 gm/dl (3.4-5.0); CALCIUM 8.7 mg/dl (8.5-10.1); CREATININE 0.96 mg/dl (0.60-1.40); POTASSIUM 3.5 mmol/L (3.5-5.1)
[2017-03-15 07:05] LABS: TOTAL PROTEIN 6.4 gm/dl (6.4-8.2)
[2017-03-15 07:14] VITALS: BP 126/79; PULSE 78; TEMP 36.8; O2SAT 96
[2017-03-15 07:45] VITALS: O2SAT 96
--- NOTE | 2017-03-15 08:27 | Surgery Progress Note ---
Surgery Progress Note Date of Service Mar 15, 2017. Subjective + ambulating, + bowel movement, + flatus, + pain controlled, No nausea, No vomiting Feeling better this AM- no new concerns or complaints. Objective Vital Signs: Date Time Temp Pulse Resp B/P (MAP) Pulse Ox O2 Delivery O2 Flow Rate FiO2 03/15/17 07:14 36.8 78 20 126/79 (95) 96 Room Air 03/14/17 23:30 94 Room Air 03/14/17 22:53 37.0 88 18 117/77 (90) 94 Room Air 03/14/17 15:30 Room Air 03/14/17 15:24 36.7 78 18 118/71 (87) 97 Room Air 03/14/17 08:00 Room Air General Appearance: WD/WN, no apparent distress Abdomen: + pertinent finding (abdominal distention improving- tender to palpation in epigastric and RUQ. ) Laboratory Results: Results Past 24 Hours Test 03/15/17 05:19 Range/Units Sodium Level 138 136-145 mmol/L Potassium Level 3.5 3.5-5.1 mmol/L Chloride Level 106 98-107 mmol/L Carbon Dioxide Level 25 21-32 mmol/L Anion Gap 7.0 3-11 mmol/L Blood Urea Nitrogen 16 7-18 mg/dl Creatinine 0.96 0.60-1.40 mg/dl Est Creatinine Clear Calc Drug Dose 89.6 ml/min Estimated GFR () 99.2 Estimated GFR (Non- 85.6 BUN/Creatinine Ratio 16.7 10-20 Random Glucose 107 70-99 mg/dl Calcium Level 8.7 8.5-10.1 mg/dl Total Bilirubin 0.4 0.2-1 mg/dl Aspartate Amino Transf (AST/SGOT) 38 15-37 U/L Alanine Aminotransferase (ALT/SGPT) 28 12-78 U/L Alkaline Phosphatase 78 45-117 U/L Total Protein 6.4 6.4-8.2 gm/dl Albumin 2.6 3.4-5.0 gm/dl Globulin 3.8 2.5-4.0 gm/dl Albumin/Globulin Ratio 0.7 0.9-2 Assessment & Plan Overall feeling well this AM. Vital signs stable, afebrile. Slight elevation this AM in AST. WBC 10.33 Tolerating liquid diet, no nausea or vomiting. Reports loose BM yesterday, which he believes has helped with bloating sensation. Reviewed patient's medication list- will see patient as outpatient in clinic to schedule elective cholecystectomy- due to current anticoagulation therapy, patient will need to be off anticoagulation meds for several days prior to surgery. Will also require cardiac clearance. Plan discussed with patient and he is agreeable and voiced understanding.
[2017-03-15] MEDS: IPRATROPIUM BROMIDE/ALBUTEROL respimat INH INH SCH ×3 (08:37→16:48)
[2017-03-15] MEDS: CIPROFLOXACIN / D5W 400 MG in PREMIXED IN D5W 200 ML IV SCH (08:37)
[2017-03-15] MEDS: CLOPIDOGREL BISULFATE 75 MG TAB PO SCH (08:38)
[2017-03-15] MEDS: SERTRALINE HCL 100 MG TAB PO SCH (08:38)
[2017-03-15] MEDS: LISINOPRIL 5 MG TAB PO SCH (08:38)
[2017-03-15] MEDS: PANTOprazole SOD 40 MG TAB PO SCH (08:38)
[2017-03-15] MEDS: ATORVASTATIN 40 MG TAB PO SCH (08:39)
[2017-03-15] MEDS: ASPIRIN 81 MG ECTAB PO SCH (08:39)
[2017-03-15] MEDS: CETIRIZINE HCL 10 MG TAB PO SCH (08:39)
[2017-03-15] MEDS: METOPROLOL TARTRATE 25 MG TAB PO SCH (08:40)
--- NOTE | 2017-03-15 11:37 | CARDIOLOGY CONSULTATION REPORT ---
DATE OF CONSULTATION: 03/15/2017 REASON FOR CONSULTATION: 1. Preoperative Cardiac Evaluation. 2. CAD s/p CABG x 3 Vessels 05/01/2016. HISTORY OF PRESENT ILLNESS: Mr. Mckeon is a very pleasant 61-year-old white male with a history of Hypertension, Dyslipidemia, COPD, GERD, prior tobacco use, and CAD s/p CABG x3 Vessels 05/01/2016 at the [facility] (including a JOSE to [place], EVELYNE to LAD, and SVG to PDA), who was admitted acutely to [facility] on 03/09/2017 after presenting with acute mid epigastric pain, radiating to the right upper quadrant and elevated lipase levels. This was consistent with acute pancreatitis and there is a consideration being given for a laparoscopic cholecystectomy either during this hospitalization or as an outpatient in a few weeks. The patient has done very well from a cardiac standpoint since his bypass surgery. He has not been exercising as often as he should - but was just on the treadmill about a week and half or two weeks ago, walking for 20 minutes with an uphill elevation. He did not experience any angina pectoris or exertional chest discomfort with that activity nor did he experience any unusual shortness of breath with that activity. He specifically denies any exertional chest pain, heaviness, tightness, pressure, or discomfort. He denies any neck, jaw, back, or arm pain. He denies any shortness of breath, unusual dyspnea on exertion, or any recent changes in exertional tolerance. He further denies any orthopnea, PND, palpitations, syncope, or near syncope. MEDICATIONS: 1. Heparin 5000 units subcutaneous injection q. 8 hours. 2. Cipro 400 mg IV q. 12 hours. 3. Metronidazole 500 mg IV q. 8 hours. 4. Normal saline with potassium chloride at 75 mL per hour. 5. Morphine sulfate 2 mg to 4 mg IV q. 3 hours p.r.n. for pain. 6. Lipitor 40 mg daily. 7. Zyrtec 10 mg daily. 8. Lisinopril 5 mg daily. 9. Sertraline 200 mg daily. 10. Lopressor 12.5 mg b.i.d. 11. Combivent Respimat 1 puff q.i.d. 12. Protonix 40 mg b.i.d. 13. Tylenol p.r.n. 14. Albuterol nebulizer p.r.n. 15. Maalox Max p.r.n. 16. Milk of magnesia p.r.n. 17. MiraLax 17 g daily as needed for constipation. 18. Zofran 4 mg IV q. 6 hours p.r.n. ALLERGIES: NKDA. PAST MEDICAL HISTORY: 1. Currently with sludge in gallbladder and acute pancreatitis. 2. CAD, status post CABG x 3 vessels on 05/01/2016. 3. Hypertension. 4. Dyslipidemia. 5. COPD. 6. History of prior tobacco use. 7. GERD. 8. History of allergic rhinitis. 9. Depression. SOCIAL HISTORY: The patient lives in the [place] area. He is a former smoker, quit several years ago. He does use smokeless tobacco. He does not use alcohol. He denies any illicit drug use. FAMILY HISTORY: Noncontributory. PHYSICAL EXAMINATION: VITAL SIGNS: Temperature is 36.8 degrees Celsius, pulse is 78 and regular, respiratory rate is 14 and unlabored, and blood pressure is 126/79. SpO2 is 96% on room air. GENERAL: The patient is in no acute distress. HEENT: Head is atraumatic and normocephalic. EOMs intact. Sclerae are anicteric. Face is symmetric. No perioral cyanosis. Mucous membranes are moist. NECK: Without thyromegaly, adenopathy, or JVD. Carotid upstrokes are +2 bilaterally without bruits. CHEST AND LUNGS: Clear to auscultation throughout all lung amado. No wheezes, rales, or rhonchi. CARDIOVASCULAR SYSTEM: S1 and S2 are regular without obvious murmur, gallop, or rub. PMI is nondisplaced. No lifts, heaves, or thrills. A well-healed median sternotomy incision site. ABDOMEN: Bowel sounds are present. EXTREMITIES: Without clubbing, cyanosis, or edema. NEUROLOGIC: The patient is awake, alert and oriented. Pleasant and cooperative. Answers questions appropriately. Speech is clear. Normal movement in all 4 extremities. Gait pattern was not assessed. LABORATORY DATA: White blood cell count is 10.33, hemoglobin 12.9 g/dL, hematocrit 38.6%, and platelet count is 209,000. Sodium is 138 mmol/L, potassium is 3.5 mmol/L, BUN is 16 mg/dL, and creatinine is 0.96 mg/dL. Serum magnesium level is 2.1 mg/dL. EKG on admission shows sinus tachycardia at a rate of 106 beats per minute and nonspecific ST segment abnormality. ASSESSMENT: 1. Acute pancreatitis. 2. Gallbladder sludge. 3. CAD s/p CABG x 3 Vessels April 2016. 4. Hypertension. 5. Dyslipidemia. 6. Chronic obstructive pulmonary disease. 7. Gastroesophageal reflux disease. 8. Preoperative cardiologic evaluation. PLAN: 1. The patient has a relatively recent 3-vessel bypass surgery and has not had any angina pectoris since his bypass surgery. He is able to perform his ADLs, climb stairs, walk on the treadmill, etc. without limiting cardiopulmonary symptoms or any angina pectoris. 2. Based on his functional status without limiting cardiopulmonary symptoms, the fact that he was recently bypassed, and the fact that he tolerated open heart surgery approximately 10 months ago without complications - the patient is in an acceptable surgical risk to proceed with cholecystectomy as anticipated. We recommend that he take his Lopressor on the morning of surgery with sips of water. 3. His statin dose currently on hold due to acute pancreatitis and some liver function abnormalities on admission -- would resume that as soon as his status allows. 4. The patient may temporarily hold Aspirin and Plavix prior to having a cholecystectomy. Resume postoperatively when hemostasis allows. 5. Continue monitoring daily laboratories. 6. Continue Lisinopril but hold on the morning of surgery. Thank you for asking us to see this patient in consultation. If we can be of any further assistance to you, please contact us at [phone]. SHANIQUA
[2017-03-15 15:02] VITALS: BP 116/81; PULSE 77; TEMP 36.7; O2SAT 94
[2017-03-15] MEDS ORDERED: RXC5 PO (15:43)
[2017-03-15] MEDS ORDERED: METR500T PO (15:43)
[2017-03-15] MEDS ORDERED: CPR500 PO (15:43)
[2017-03-15] MEDS ORDERED: ANSHCCR EXT (15:43)
--- NOTE | 2017-03-15 15:54 | Discharge Instructions ---
Discharge Instructions Date of Service Mar 15, 2017. Admission Reason for Admission: Acute Pancreatitis Discharge Discharge Diagnosis / Problem: Acute Pancreatitis - Gallbladder Disease Discharge Goals Goal(s): Decrease discomfort, Improve function, Increase independence Activity Recommendations Activity Limitations: per Instructions/Follow-up section Lifting Limitations: gradually increase as tolerated Exercise/Sports Limitations: until after follow-up appointment Shower/Bathe: no limitations Driving or Machine Use: Do not drive when using pain medications . Instructions / Follow-Up Instructions / Follow-Up Pancreatitis - Likely from Gallbladder Dysfunction: - You will follow-up with Surgery on Wednesday and will plan for gallbladder surgery possibly next week. - HOLD your Plavix and Aspirin at this time until you see the surgeon and have a date set for the operation. - Recommend to maintain a clear or full liquid diet until you see the surgeon and have the gallbladder removed -- You may have broths,soups, and jello. KEEP A LOW FAT DIET -- You can also have things such as oatmeal would recommend using water to mix this. If you do have milk products have non-fat but be careful with this in general -- If you can tolerate something more solid you can try cautiously. Would recommend these foods to be bland and easy to digest. Would only recommend taking a couple bites and seeing how you feel. Crackers may be a good thing to try first before trying others (recommend plain saltines not buttery crackers) - You will continue on a course of antibiotics - there will be two different types. The one is Cipro and you will take this twice a day. The other is Flagyl and you will take this three times a day. Reasons to Return: - Please return to the hospital if your abdominal pain becomes worse or your develop frequent vomiting Current Hospital Diet Patient's current hospital diet: Full Liquid Diet, Low Fat Diet Discharge Diet Recommended Diet: Clear Liquid Diet, Full Liquid Diet, Low Fat Diet Pending Studies Studies pending at discharge: no Laboratory Results Lipid Panel Test 03/09/17 15:43 Range/Units Triglycerides Level 263 H 0-150 mg/dl Medical Emergencies . Who to Call and When: Medical Emergencies: If at any time you feel your situation is an emergency, please call 911 immediately. . Non-Emergent Contact Non-Emergency issues call your: Primary Care Provider Call Non-Emergent contact if: you have a fever, your pain is concerning you, you have any medication questions . . "Provider Documentation" section prepared by iLseth Hercules. . VTE Core Measure Inpt VTE Proph given/why not?: Unfractionated heparin S[place] Drug Monitoring Program Search Results: patient reviewed within database, no issues identified
[2017-03-15 16:21] VITALS: BP 116/81; PULSE 77; TEMP 36.7; O2SAT 94
--- NOTE | 2017-03-15 17:38 | Discharge Summary ---
Discharge Summary Date of Service Mar 15, 2017. Discharge Summary Admission Date: Mar 09, 2017 at 20:00 Discharge Date: Mar 15, 2017 Discharge Disposition: Home Principal Diagnosis: Pancreatitis - Suspected Biliary Cause Problems/Secondary Diagnoses: 1. CAD S/P CABG x 3 2. HTN 3. HLD 4. COPD 5. Fatty Liver 6. Fatty Pancreas 7. GERD 8. gall bladder sludge with possible stone 9. ileus, 2nd to pancreatitis - improved Procedures: ABD/PELVIS IV CONTRAST ONLY FINDINGS: Lung bases are clear. Liver is uniform. Pancreas demonstrates diffuse fatty replacement. Spleen is unremarkable. The adrenal glands are normal. The kidneys enhance uniformly. Mild thickening of the fat at the level of the root of the mesentery. Slight fascial plane thickening of the paracolic gutter regions. Subtle wall thickening of the colon versus artifact. No evidence for abscess or collection. The appendix is normal. No free fluid within the pelvic cul-de-sac. IMPRESSION: 1. Possible minimal colitis with slight reactive thickening of the mesentery. 2. Diffuse fatty replacement of the pancreas. 3. Normal appendix. 4. Fatty replacement of the liver. (CHEST FOR PE) ANGIO WITH FINDINGS: There is a normal caliber thoracic aorta with no evidence for dissection. There is no evidence for pulmonary embolus. No pleural effusions. No pneumothorax. The liver and spleen are unremarkable. No mediastinal or hilar lymphadenopathy. The central airways are patent. The lungs demonstrate a minimal parenchymal infiltrate right lower lobe. IMPRESSION: 1. No evidence for pulmonary embolus. 2. Small parenchymal infiltrate right base. (LIVER) ABDOMEN LIMITED FINDINGS: Pancreas is obscured by bowel gas. There is increased echogenicity with poor through transmission of the liver suggesting fatty infiltration. No intrahepatic biliary ductal dilation identified. Nonshadowing echogenic foci noted within the region of the gallbladder neck suggesting gallbladder sludge. No gallbladder wall thickening or pericholecystic fluid collections. 7 mm echogenic nonshadowing focus is seen within the region of the gallbladder neck suggesting a gallstone. Common bile duct measures 5 mm. Right kidney is unremarkable measuring up to 10.6 cm. IMPRESSION: 1. Pancreas obscured by bowel gas. 2. Mild gallbladder sludge with 7 mm nonshadowing echogenic focus of the gallbladder neck suggesting possible cholelithiasis. No sonographic evidence of acute cholecystitis. 3. No biliary ductal dilation. MRCP FINDINGS: Liver is uniform throughout. Gallbladder is negative for distention. There is diffuse fatty replacement of the pancreas. Spleen is uniform. There is no significant upper abdominal adenopathy. Kidneys negative for hydronephrosis. The MRCP comparison study is unremarkable. There are no stenotic process nor is there evidence for filling defect. Pancreatic duct is unremarkable. IMPRESSION: Diffuse fatty infiltration of the pancreas. Otherwise negative study. DUPLEX MESENTERIC FINDINGS: Somewhat compromised evaluation due to overlying bowel content. No major stenotic process. IMPRESSION: No evidence for significant stenotic process within the limitations of overlying bowel content. Consultations: 1. Gastroenterology 2. General Surgery 3. Cardiology Medication Reconciliation New Medications: Ciprofloxacin (Ciprofloxacin HCl) 500 Mg Tab 500 MG PO BID, #19 TAB Take one dose tonight on 03/15 then resume twice a day on 03/16 Metronidazole (Flagyl) 500 Mg Tab 500 MG PO TID, #28 TAB Take on dose tonight on 03/15 then resume three times a day on 03/16 Oxycodone HCl (Oxycodone HCl) 5 Mg Tab 1-2 TABS PO Q4H PRN for Pain for 3 Days, #20 TABS Hydrocortisone (Proctosol Hc) 90 Appln/30 Gm Cr 1 APPLN EXT Q6 for 7 Days, #1 TUBE Continued Medications: Albuterol Sulf (Albuterol Sulfate) 2.5 Mg/3 Ml Nebu 2.5 MG NEB BID PRN for COPD Aspirin (Aspirin Ec) 81 Mg Tab 81 MG PO DAILY Atorvastatin (Lipitor) 40 Mg Tab 40 MG PO DAILY, TAB Cetirizine (Zyrtec) 10 Mg Tab 10 MG PO DAILY, TAB Clopidogrel Bisulfate (Clopidogrel) 75 Mg Tab 75 MG PO DAILY Fluticasone Furoate-Vilanterol (Breo Ellipta) 1 Inh Inh 1 PUFF INH DAILY 100-25 MCG Ipratropium-Albuterol (Combivent Respimat) 1 Aer Aer 1 PUFFS INH QID, INH Lisinopril (Zestril) 5 Mg Tab 5 MG PO DAILY, TAB Metoprolol Tartrate (Lopressor) (Lopressor) 25 Mg Tab 12.5 MG PO BID, TAB Omeprazole (Prilosec) 20 Mg Capcr 20 MG PO BID, CAP Sertraline (Zoloft) 100 Mg Tab 200 MG PO DAILY, TAB Discharge Exam Review of Systems: Constitutional: No fever, No chills Respiratory: No shortness of breath Cardiovascular: No chest pain Abdomen: + pain (intermittent - epigastric), No nausea, No vomiting, No diarrhea, No constipation, No GI bleeding Musculoskeletal: No swelling, No calf pain Genitourinary - Male: No dysuria Hematologic / Lymphatic: No abnormal bleeding/bruising Integumentary: No rash Physical Exam: General Appearance: WD/WN, no apparent distress Eyes: sclerae normal ENT: hearing grossly normal Neck: supple, no JVD, trachea midline Respiratory/Chest: lungs clear, normal breath sounds, no respiratory distress, no accessory muscle use Cardiovascular: regular rate, rhythm, no gallop, no murmur Abdomen / GI: normal bowel sounds, non tender, + distended (slightly improved) Extremities: no pedal edema Neurologic/Psychiatric: alert, oriented x 3 Skin: normal color, warm/dry Hospital Course ADMISSION: 61 y/o M Hx CAD - 3V CABG 05/08, HTN, HPL, COPD, fatty liver, fatty pancreas. Presents with abdominal distention and pain mostly at the RUQ - subcostal margin. He also describes a mild cough. He states he feels it is difficult to take a deep breath and that the abdominal pain worsens with inspiration. Initial labs are notable for an elevated lipase and an elevated D dimer. A CT abdomen did not confirm pancreatitis, although a mild colitis may be present. A CTA of the chest revealed a small R parenchymal infiltrate. The pt denies CP, SOB, nausea, vomiting, diarrhea or fevers. HOSPITAL COURSE: Mr. Mckeon was admitted for acute Pancreatis that is likely related to biliary dysfunction Abdominal Pain: Pancreatitis vs Colitis vs Ileus - Lipase of 7000 at admission and trended to normal - LFTs normal with intermittent elevations in bili that resolved - Did have an initial ileus but continues to have bowel movements and passing flatus - Initially when tried on solids he developed worsening abdominal pain and was reduced back to clears. Ultimately he decided to continue full liquid/low fat until seeing the surgeon on Wednesday to schedule cholecystectomy - Patient does tolerate this diet and would like to return home - did offer to try and get to solids again but said that he can maintain this diet - a list of foods was given to him - Discussed with General Surgery who does think this is biliary related and plan for cholecystectomy. Due to ASA and Plavix they offered surgery for 03/16 vs outpatient. Patient elected for outpatient to reduce chances of complication. -- He will hold ASA and Plavix at this time and will follow-up with Surgery on Wednesday. Pending scheduling they can adjust this accordingly -- Seen in consult by cardiology who felt he was optimized for a cholecystectomy and who felt that temporary cessation of aspirin/plavix for upcoming surgery was acceptable. - Will continue Cipro and Flagyl to complete a 10 day course - did present with mild leukocytosis and suspicion of early cholecystitis - Patient was educated on reasons to return to the ED. Attending Discharge Note & Attestation: pt seen/examined, chart reviewed, discharge care plan d/w JAZZMINE Hercules. I agree w/ the [place] components of her documentation. Pleasant 61yo male who presented with abdominal bloating, RUQ/epigastric pain, and mild dyspnea. Found to have acute pancreatitis with markedly elevated lipase at presentation. He was treated in the customary fashion for his pancreatitis with fluids, bowel rest, etc. Lipase returned to normal w/ these measures. His stay was complicated by the development of an ileus. Multiple imaging studies showed evidence of gall bladder sludge and a possible stone. Acute cholecystitis findings were absent, however. Even after his ileus and pancreatitis resolved he had RUQ pain with heavy foods. Seen in consult by general surgery who recommended cholecystectomy. Plan is for him to HOLD his asa/plavix for 1 week and outpatient cholecystectomy will then take place by Dr. Jerry Walters. Pt was d/c home on cipro/flagyl to cover the gall bladder as a precautionary measure. Discharge exam - gen - NAD neck - no JVD heart - RRR, s1, s2, no murmur lungs - CTA b/l abd - mildly distended, BS+, scant tenderness RUQ/epigastric region, no HSM, no peritoneal signs ext - no edema skin - w/o icterus Other medical problems remained stable while here. Noe Ramirez MD Total Time Spent: Greater than 30 minutes This includes examination of the patient, discharge planning, medication reconciliation, and communication with other providers. Discharge Instructions Please refer to the electronic Patient Visit Report (Discharge Instructions) for additional information. Follow-Up see Dr. Jerry Walters, general surgery, on Wednesday03/19/17 Additional Copies To Jerry Walters D.O.; Sudha Vasquez C.R.N.P.
== END 2017-03-15 17:05 | disposition home or self-care (01) | DRG 439 ==
LOC: C.EDB 15:09 → C.MSW 20:00 → ENRESERV 20:22
PROVIDERS: ADMIT Internal Medicine; ATTEND Internal Medicine
DX: K85.90 Acute pancreatitis without necrosis or infection, unspecified (principal); K92.1 Melena; J44.9 Chronic obstructive pulmonary disease, unspecified; Z79.82 Long term (current) use of aspirin; I10 Essential (primary) hypertension; K21.9 Gastro-esophageal reflux disease without esophagitis; E87.6 Hypokalemia; K76.0 Fatty (change of) liver, not elsewhere classified; Z87.442 Personal history of urinary calculi; Z87.891 Personal history of nicotine dependence; Z80.1 Family history of malignant neoplasm of trachea, bronchus and lung

== ENCOUNTER 2017-03-25 10:16 | Day surgery (SDC) | payer OTHER ==
[2017-03-19 15:51] VITALS: BMI 27.0
[~2017-03-25] VITALS: Ht 175.3 cm; Wt 84.1 kg
[~2017-03-25 10:16] MED LIST changes: +ATROPINE SULFATE 0.1 MG/ML 5ML SYR IV PRN; -BUPR150T5 PO; +CEFAZOLIN 2000MG IV PUSH 10 ML IV SCH; +CIPR1TAB11 PO; +EpHEDrine SULFATE INJ 50 MG/ML AMP IV PRN; -FRS/40 PO; +IPRA1AER2 INH; +LACTATED RINGER'S 1000ML 1,000 ML IV SCH; +LEVO1TAB33 PO; +LISI-729 PO; +METR-163 PO; -OMEP40CA41 PO; +ONDANSETRON INJ 2 MG/ML 2 ML VIAL IV PRN; +OXYC1TAB3 PO; +PHENYLEPHRINE 100MCG/ML 5ML SYR IV PRN; -POTA20TA13 PO; +PRLSR20 PO; -PRVHFAIN INH; -PSEU60TA80 PO
[2017-03-25 10:51] VITALS: BP 117/84; PULSE 92; TEMP 36.6; O2SAT 97; Ht 175.3 cm; Wt 84.1 kg
--- NOTE | 2017-03-25 11:15 | History & Physical Bridge Note ---
H&P Re-Evaluation Bridge Note: I have examined the patient, reviewed the History & Physical and in the interval since the performance of the History & Physical I have noted the following changes of clinical significance: No changes noted
[2017-03-25] MEDS ORDERED: MIDAZOLAM HCL 1 MG/ML 2ML VIAL ONE (11:17)
[2017-03-25] MEDS ORDERED: FENTANYL CITRATE INJ 50 MCG/1 ML 2 ML VIAL ONE ×3 (11:17→12:24)
[2017-03-25] MEDS ORDERED: BUPIVACAINE/EPINEPHRINE 0.5% MPF 1:200,000 30 ML VIAL ONE (11:42)
[2017-03-25] MEDS ORDERED: ALBUT/IPRATROP 3MG/0.5MG NEB 3 ML VIAL INH ONE (11:45)
[2017-03-25 11:47] VITALS: PULSE 84; O2SAT 98
[2017-03-25] MEDS ORDERED: HYDROmorphone INJ 2 MG/ML SYR/VIAL ONE (12:41)
[2017-03-25] MEDS ORDERED: LIDOCAINE HCL 2% 2 ML VIAL (20MG/ML) ONE (12:45)
[2017-03-25] MEDS ORDERED: KETOROLAC TROMETHAMINE 30 MG/ML VIAL ONE (12:45)
[2017-03-25] MEDS ORDERED: LABETALOL HCL IV 5 MG/ML 20ML IV ONE (12:45)
[2017-03-25] MEDS ORDERED: GLYCOPYRROLATE INJ 0.2 MG/ML VIAL ONE (12:45)
[2017-03-25] MEDS ORDERED: ROCURONIUM BROMIDE 10 MG/ML 5 ML VIAL IV ONE (12:45)
[2017-03-25] MEDS ORDERED: ONDANSETRON INJ 2 MG/ML 2 ML VIAL ONE (12:45)
[2017-03-25] MEDS ORDERED: PROPOFOL IV EMULSION 10 MG/ML 20 ML VIAL IV ONE (12:45)
[2017-03-25] MEDS ORDERED: NEOSTIGMINE METHYLSULFATE 5 MG/5 ML SYR ONE (12:45)
[2017-03-25] MEDS ORDERED: DEXAMETHASONE SOD INJ 4 MG/ML VIAL ONE (12:45)
--- NOTE | 2017-03-25 12:53 | [facility] Post Operative Brief Note ---
Immediate Operative Summary Operative Date Mar 25, 2017. Pre-Operative Diagnosis Gallbladder Sludge, Pancreatitis Post-Operative Diagnosis Same as preop Procedure(s) Performed Laparoscopic Cholecystectomy Surgeon Dr. Walters System Archive Analyst Surgeon(s) Meño Calvo PA-C Estimated Blood Loss 5 ml Findings Consistent with Post-Op Diagnosis Specimens A. Gallbladder and contents Anesthesia Type General Complication(s) none
--- NOTE | 2017-03-25 12:57 | [facility] Operative Report ---
Operative Report Operative Date Mar 25, 2017. Pre-Operative Diagnosis Gallbladder Sludge, Pancreatitis Post-Operative Diagnosis Same as preop Procedure(s) Performed Laparoscopic Cholecystectomy Surgeon Dr. Walters Certified Master Safe Technician Surgeon(s) Meño Calvo PA-C Estimated Blood Loss 5 ml Specimens A. Gallbladder and contents Anesthesia Type General Complication(s) none Description of Procedure After informed consent was obtained the patient was taken the operating room and placed in supine position. After successful intubation the abdomen was sterilely prepped and draped in usual fashion. A supraumbilical incision was made with an 11 blade scalpel and carried down through the soft tissue using electrocautery. The anterior rectus fascia was opened using electrocautery and 2 #0 Vicryl stay sutures were placed. Peritoneum was entered using blunt finger penetration and a finger sweep was performed. A 12 mm Kim trocar was placed and the abdomen was insufflated 18 mmHg. Laparoscope was inserted and the abdomen was examined in 360. A subxiphoid 5 mm port and 2 right upper quadrant 5 mm ports were placed under direct vision. The patient was placed in a reverse Trendelenburg position and slightly airplaned to to the left. A quick look around the abdomen showed no gross abnormalities. The gallbladder was grasped and elevated superiorly and laterally. Adhesions around the neck of the gallbladder were taken down using primarily blunt dissection. I used a [place] dissector to skeletonize the cystic artery first which was anterior to the duct. We clipped it twice proximally once distally and transected it. In similar fashion the cystic duct was skeletonized clipped and divided as well. Electrocautery was used to remove the gallbladder from the gallbladder fossa. It was removed intact and placed into an Endo Catch bag. Several small bleeding points on the fossa were controlled using electrocautery. Thorough irrigation was performed. At the end of the procedure there was adequate hemostasis and no evidence of a bile leak. The gallbladder and trochars were all removed and the abdomen was desufflated. The fascia of the camera port was closed using 0 Vicryl [id number] fashion. All wounds were irrigated and closed using 4-0 Monocryl. Marcaine was injected around him for postoperative analgesia and skin glue used as a dressing. The patient was awakened extubated and transferred recovery in stable condition. My physician's shipping assistant was present throughout the entire case. He helped prepped the patient. He help retract the gallbladder throughout my dissection he helped with wound closure and dressing placement I attest to the content of the Intraoperative Record and any orders documented therein. Any exceptions are noted below.
[2017-03-25] MEDS ORDERED: LACTATED RINGER'S 1000ML 1,000 ML IV SCH (13:04)
[2017-03-25] MEDS: HYDROmorphone INJ 2 MG/ML SYR/VIAL IV PRN ×2 (13:08→13:13)
[2017-03-25] MEDS ORDERED: OXYC1TAB3 PO (13:10)
--- NOTE | 2017-03-25 13:13 | Discharge Instructions ---
Discharge Instructions Date of Service Mar 25, 2017. Visit Reason for Visit: Gallbladder Sludge, Pancreatitis Discharge Discharge Diagnosis / Problem: laparoscopic cholecystectomy Discharge Goals Goal(s): Decrease discomfort Activity Recommendations Activity Limitations: as noted below Lifting Limitations: no more than 10 pounds Shower/Bathe: no limitations Driving or Machine Use: resume 3 days after discharge Anesthesia . Post Anesthesia Instructions: If you have had General Anesthesia or IV Sedation: * Do not drive today. * Resume driving when surgeon permits. * Do not make important decisions or sign legal documents today. * Call surgeon for: 1. Temperature elevations greater than 101 degrees F. 2. Uncontrollable pain. 3. Excessive bleeding. 4. Persistent nausea and vomiting. 5. Medication intolerance (nausea, vomiting or rash). * For nausea and vomiting use only clear liquids such as: tea, soda, bouillon until nausea subsides, then gradually increase diet as tolerated. * If you have any concerns or questions, call your surgeon's office. If physician is unavailable and it is an emergency, call 911 or go to the nearest emergency room. . Instructions / Follow-Up Instructions / Follow-Up Dr. Walters in 2 weeks as planned, call [phone] for any questions Diet Recommendations Recommended Home Diet: no limitations Procedures Procedures Performed: Laparoscopic Cholecystectomy Pending Studies Studies pending at discharge: no Medical Emergencies . Who to Call and When: Medical Emergencies: If at any time you feel your situation is an emergency, please call 911 immediately. . Non-Emergent Contact Non-Emergency issues call your: Surgeon Call Non-Emergent contact if: you have a fever, temperature is above 101.5, your pain is not controlled, wound has increased pain, you have any medication questions . . "Provider Documentation" section prepared by Meño Calvo. .
[2017-03-25] MEDS ORDERED: MoRPHine SULFATE 4 MG/ML 1 ML CARP\\VIAL IV PRN (13:15)
[2017-03-25] MEDS ORDERED: HYDROCODONE/ACETAMIN 5/325MG TAB PO PRN (13:15)
[2017-03-25] MEDS ORDERED: ONDANSETRON INJ 2 MG/ML 2 ML VIAL IV PRN (13:15)
[2017-03-25 13:40] VITALS: BP 96/67; PULSE 74; TEMP 36.6; O2SAT 92
[2017-03-25 14:10] VITALS: BP 106/64; PULSE 79; TEMP 36.6; O2SAT 94
--- NOTE | 2017-03-25 14:12 | Anesthesiology Progress Note ---
Anesthesia Post Op Note Date & Time Mar 25, 2017 at 14:12 Vital Signs Pain Intensity: 0 Vital Signs Past 12 Hours Date Time Temp Pulse Resp B/P (MAP) Pulse Ox O2 Delivery O2 Flow Rate FiO2 03/25/17 13:40 36.6 74 18 96/67 92 Room Air 03/25/17 13:32 36.4 03/25/17 13:31 109/77 03/25/17 13:30 75 14 95 03/25/17 13:30 75 14 03/25/17 13:26 120/75 03/25/17 13:25 76 18 95 03/25/17 13:25 75 18 03/25/17 13:21 108/77 03/25/17 13:20 74 12 03/25/17 13:20 73 12 97 03/25/17 13:16 114/76 03/25/17 13:15 76 21 03/25/17 13:15 74 21 98 03/25/17 13:11 117/76 03/25/17 13:10 75 24 96 03/25/17 13:10 75 24 03/25/17 13:07 140/94 03/25/17 13:05 76 13 03/25/17 13:05 80 13 97 03/25/17 13:04 135/97 03/25/17 12:55 36.6 90 16 142/107 96 Oxymask 7 03/25/17 11:47 84 14 98 Room Air 03/25/17 10:51 36.6 92 18 117/84 (95) 97 Room Air Notes Mental Status: alert / awake / arousable, participated in evaluation Pt Amnestic to Procedure: Yes Nausea / Vomiting: adequately controlled Pain: adequately controlled Airway Patency, RR, SpO2: stable & adequate BP & HR: stable & adequate Hydration State: stable & adequate Anesthetic Complications: no major complications apparent
== END 2017-03-25 14:25 | disposition home or self-care (01) ==
LOC: C.ACU 10:16
PROVIDERS: ATTEND Surgery
DX: K81.1 Chronic cholecystitis (principal); K85.90 Acute pancreatitis without necrosis or infection, unspecified; J44.9 Chronic obstructive pulmonary disease, unspecified; M10.9 Gout, unspecified; E78.5 Hyperlipidemia, unspecified; I10 Essential (primary) hypertension; Z95.1 Presence of aortocoronary bypass graft; Z87.09 Personal history of other diseases of the respiratory system; Z83.3 Family history of diabetes mellitus; Z87.891 Personal history of nicotine dependence; Z79.82 Long term (current) use of aspirin; Z79.899 Other long term (current) drug therapy

== ENCOUNTER 2017-05-31 14:19 | Observation (INO) | payer OTHER ==
[~2017-05-31] VITALS: Ht 177.8 cm; Wt 87.0 kg
[~2017-05-31 14:19] MED LIST changes: -ASPI81TA28 PO; -ATROPINE SULFATE 0.1 MG/ML 5ML SYR IV PRN; -CEFAZOLIN 2000MG IV PUSH 10 ML IV SCH; -EpHEDrine SULFATE INJ 50 MG/ML AMP IV PRN; -LACTATED RINGER'S 1000ML 1,000 ML IV SCH; -ONDANSETRON INJ 2 MG/ML 2 ML VIAL IV PRN; -PHENYLEPHRINE 100MCG/ML 5ML SYR IV PRN; -PLV75 PO
[2017-05-31 14:48] LABS: HEMATOCRIT 46.3 % (42-52); HEMOGLOBIN 16.3 g/dL (14.0-18.0); MEAN CELL VOLUME 85.9 fL (80-100); MEAN CORPUSCULAR HEMOGLOBIN 30.2 pg (25-34); MEAN CORPUSCULAR HGB CONC 35.2 g/dl (32-36); MEAN PLATELET VOLUME 10.1 fL (7.4-10.4); PLATELET COUNT 181 K/uL (130-400); RED CELL DISTRIBUTION WIDTH CV 13.7 % (11.5-14.5); RED CELL DISTRIBUTION WIDTH SD 42.8 fL (36.4-46.3); WHITE BLOOD COUNT 9.04 K/uL (4.8-10.8)
[2017-05-31 14:56] LABS: PTT PATIENT 24.8 SECONDS (21.0-31.0)
[2017-05-31 15:06] LABS: ALBUMIN 3.9 gm/dl (3.4-5.0); CALCIUM 8.6 mg/dl (8.5-10.1); CREATININE 1.11 mg/dl (0.60-1.40); POTASSIUM 3.3 mmol/L (3.5-5.1)
[2017-05-31 15:11] LABS: CKMB 0.7 ng/ml (0.5-3.6); TOTAL PROTEIN 7.3 gm/dl (6.4-8.2)
--- NOTE | 2017-05-31 17:50 | DIAGNOSTIC IMAGING REPORT ---
SINGLE VIEW CHEST CLINICAL HISTORY: Atypical chest pain. FINDINGS: An AP, portable, upright chest radiograph is compared to study dated 03/13/2017 and correlated with chest CT dated 03/09/2017. The examination is degraded by portable technique and patient rotation. The patient is status post midline sternotomy. The heart is top normal for projection and there is atherosclerotic calcification of the thoracic aorta. The pulmonary vasculature is noncongested. The lungs and pleural spaces are clear. No pneumothorax is seen. The bony thorax is grossly intact. IMPRESSION: No acute cardiopulmonary abnormality. Electronically signed by: Roni Dawkins M.D. 05/31/2017 5:49 PM Dictated Date/Time: 05/31/2017 5:47 PM
[2017-05-31] MEDS ORDERED: ALBUT/IPRATROP 3MG/0.5MG NEB 3 ML VIAL INH STA (17:54)
[2017-05-31] MEDS ORDERED: METOPROLOL TARTRATE 25 MG TAB PO STA (17:55)
--- NOTE | 2017-05-31 17:56 | EMERGENCY ROOM VISIT NOTE ---
History Report prepared by Sophie: Jerry Donovan Under the Supervision of: Dr. Naomi Gunn D.O. First contact with patient: 17:33 Chief Complaint: CHEST PAIN Stated Complaint: HIGH BLOOD PRESSURE. HEADACHE AND SHORTNESS OF CARLOS Nursing Triage Summary: chest pain for the past 1-2 weeks. non productive cough. short of breath History of Present Illness The patient is a 61 year old male with a history of COPD and a triple bypass who presents to the Emergency Room with complaints of worsening shortness of breath on exertion over the past couple weeks. The patient notes that he has been tired recently. He states that he has been having breathing difficulties especially on exertion and at night. The patient says that he wakes up in the middle of the night and has a hard time catching a deep breath. He adds that he sweats a lot at night. The patient notes that he has been having bad headaches recently as well. He says that he has been coughing more than usual and it is nonproductive. He notes that he has had mild chest pain with exertion over the past few weeks. The patient states that he took his blood pressure today and it was 180/106. He says that laying flat also worsens his breathing. The patient's had bronchitis 2 weeks ago, and the patient adds that he has had a lot of recent stress. He says that he wears oxygen at home but uses a nebulizer. He states that he had the triple bypass last year. The patient says that his symptoms do not feel exactly like his previous pneumonia bouts. He takes Metoprolol and Lisinopril for his hypertension. He states that he is not currently having any pains. States he does take aspirin and Plavix daily since his surgery. Source of History: patient, spouse/significant other Onset: Past couple weeks Position: other (global) Quality: other (shortness of breath) Timing: worsening Modifying Factors (Worsening): exertion, other (laying flat) Associated Symptoms: + headache, + diaphoresis, + cough, + chest pain, + fatigue Note: High blood pressure today. Review of Systems See HPI for pertinent positives & negatives. A total of 10 systems reviewed and were otherwise negative. Past Medical & Surgical Medical Problems: (1) Acute pancreatitis (2) Bronchitis (3) COPD (chronic obstructive pulmonary disease) (4) History of kidney stones (5) Hypercalcemia Surgical Problems: (1) Hx of CABG Family History Diabetes mellitus FHx: cancer Gallbladder disease Heart disease Hypertension Kidney disease Lung disease Social History Smoking Status: Former Smoker Alcohol Use: none Drug Use: none Marital Status: Housing Status: lives with significant other Occupation Status: retired Current/Historical Medications Scheduled Atorvastatin (Lipitor), 40 MG PO QAM Cetirizine (Zyrtec), 10 MG PO QAM Fluticasone Furoate-Vilanterol (Breo Ellipta), 1 PUFF INH QAM Lisinopril (Zestril), 5 MG PO QAM Metoprolol Tartrate (Lopressor), 25 MG PO BID Omeprazole (Prilosec), 20 MG PO BID Sertraline (Zoloft), 100 MG PO QAM Scheduled PRN Albuterol Sulf (Albuterol Sulfate), 2.5 MG NEB BID PRN for COPD Ipratropium-Albuterol (Combivent Respimat), 1 PUFFS INH QID PRN for PRN Allergies Coded Allergies: No Known Allergies (Unverified , 05/31/17) Physical Exam Vital Signs Date Time Temp Pulse Resp B/P (MAP) Pulse Ox O2 Delivery O2 Flow Rate FiO2 05/31/17 19:43 74 18 118/93 95 Room Air 05/31/17 18:54 84 22 94 Room Air 05/31/17 18:30 77 20 143/93 93 Room Air 05/31/17 18:13 80 20 117/79 99 Nebulizer 05/31/17 14:25 36.4 72 18 150/99 98 Room Air Physical Exam GENERAL: alert, well appearing, well nourished, no distress, non-toxic, poor dentition EYE EXAM: normal conjunctiva, PERRL and EOM's grossly intact OROPHARYNX: no exudate, no erythema, lips, buccal mucosa, and tongue normal and mucous membranes are moist NECK: supple, no nuchal rigidity, no adenopathy, non-tender LUNGS: Decreased breath sounds. No wheezes, rhonchi, or rales. HEART: Mild reproducible chest wall tenderness, no murmurs, S1 normal and S2 normal ABDOMEN: abdomen soft, non-tender, normo-active bowel sounds, no masses, no rebound or guarding. BACK: Back is symmetrical on inspection and there is no deformity, no midline tenderness, no CVA tenderness. SKIN: no rashes and no bruising UPPER EXTREMITIES: upper extremities are grossly normal. LOWER EXTREMITIES: No pitting edema. NEURO EXAM: Normal sensorium, cranial nerves II-XII grossly intact, normal speech, no gross weakness of arms, no gross weakness of legs. Medical Decision & Procedures ER Provider Diagnostic Interpretation: X-ray results have been interpreted by the radiologist and reviewed by me. SINGLE VIEW CHEST CLINICAL HISTORY: Atypical chest pain. FINDINGS: An AP, portable, upright chest radiograph is compared to study dated 03/13/2017 and correlated with chest CT dated 03/09/2017. The examination is degraded by portable technique and patient rotation. The patient is status post midline sternotomy. The heart is top normal for projection and there is atherosclerotic calcification of the thoracic aorta. The pulmonary vasculature is noncongested. The lungs and pleural spaces are clear. No pneumothorax is seen. The bony thorax is grossly intact. IMPRESSION: No acute cardiopulmonary abnormality. Electronically signed by: Roni Dawkins M.D. 05/31/2017 5:49 PM Dictated Date/Time: 05/31/2017 5:[address] ANGIOGRAM OF THE CHEST CLINICAL HISTORY: Atypical chest pain. COMPARISON STUDY: Chest x-ray dated 05/31/2017. Chest CT scans dated 03/09/2017 and 06/12/2016. TECHNIQUE: Following the IV administration of 102 cc of Optiray 320, CT angiogram of the chest was performed from the upper abdomen to the thoracic inlet utilizing the pulmonary embolus protocol. Images are reviewed in the axial, sagittal, and coronal planes. 3-D MIPS images are created and assessed. IV contrast was administered without complication. A dose lowering technique was utilized adhering to the principles of ALARA. CT DOSE: 517.34 mGy.cm FINDINGS: Thyroid: Imaged portions of the thyroid gland are normal in size and attenuation. Thoracic aorta: The thoracic aorta is normal in caliber and demonstrates bovine variant arch anatomy. No dissection is seen. Pulmonary vasculature: The pulmonary trunk is normal in caliber. There are no filling defects identified in main, lobar, or segmental pulmonary branches to suggest pulmonary embolus. Heart: The patient is status post midline sternotomy. The heart mildly enlarged and without pericardial effusion. The coronary arteries are densely calcified. Lungs and pleural spaces: Evaluation of the lung parenchyma is modestly degraded by motion artifact. No airspace consolidation or pleural effusion is identified. Dependent atelectasis is noted. Scattered calcified granulomas are observed. The trachea and central airways are clear. Mediastinum: There is no mediastinal lymphadenopathy. Leola: Clear. Axillae: There is no axillary lymphadenopathy. Upper abdomen: There is evidence of hepatic steatosis. Cholecystectomy clips are noted. There is a small hiatal hernia. Skeletal structures: The skeletal structures are osteopenic. No lytic or blastic bony lesions are seen. Degenerative change is noted in the shoulders and thoracic spine. IMPRESSION: 1. There is no evidence of pulmonary embolus in the main, lobar, or segmental pulmonary arteries. 2. There is no airspace consolidation or pleural effusion. 3. Mild cardiomegaly. 4. Hepatic steatosis. Electronically signed by: Roni Dawkins M.D. 05/31/2017 8:55 PM Dictated Date/Time: 05/31/2017 8:50 PM Laboratory Results 05/31/17 14:30 05/31/17 14:30 Test 05/31/17 14:30 05/31/17 14:39 05/31/17 18:45 Red Blood Count 5.39 M/uL (4.7-6.1) Mean Corpuscular Volume 85.9 fL (80-100) Mean Corpuscular Hemoglobin 30.2 pg (25-34) Mean Corpuscular Hemoglobin Concent 35.2 g/dl (32-36) RDW Standard Deviation 42.8 fL (36.4-46.3) RDW Coefficient of Variation 13.7 % (11.5-14.5) Mean Platelet Volume 10.1 fL (7.4-10.4) Prothrombin Time 10.4 SECONDS (9.0-12.0) Prothromb Time International Ratio 1.0 (0.9-1.1) Activated Partial Thromboplast Time 24.8 SECONDS (21.0-31.0) Partial Thromboplastin Ratio 1.0 Anion Gap 11.0 mmol/L (3-11) Est Creatinine Clear Calc Drug Dose 79.5 ml/min Estimated GFR () 83.2 Estimated GFR (Non- 71.8 BUN/Creatinine Ratio 8.6 (10-20) Calcium Level 8.6 mg/dl (8.5-10.1) Total Bilirubin 0.8 mg/dl (0.2-1) Aspartate Amino Transf (AST/SGOT) 37 U/L (15-37) Alanine Aminotransferase (ALT/SGPT) 59 U/L (12-78) Alkaline Phosphatase 89 U/L (45-117) Total Creatine Kinase 54 U/L (39-308) Creatine Kinase MB 0.7 ng/ml (0.5-3.6) Creatine Kinase MB Ratio 1.3 (0-3.0) Total Protein 7.3 gm/dl (6.4-8.2) Albumin 3.9 gm/dl (3.4-5.0) Globulin 3.4 gm/dl (2.5-4.0) Albumin/Globulin Ratio 1.1 (0.9-2) Bedside Troponin I < 0.030 ng/ml (0-0.045) D-Dimer 570 ug/L FEU (0-500) Pro-B-Type Natriuretic Peptide 299 pg/ml (0-900) Laboratory results per my review. Medications Administered Medications (Trade) Dose Ordered Sig/Vinicio Route Start Time Stop Time Status Last Admin Dose Admin Albuterol/ Ipratropium (Duoneb) 3 ml NOW STAT INH 05/31/17 17:54 05/31/17 17:55 DC 05/31/17 18:11 3 ML Metoprolol Tartrate (Lopressor Tab) 12.5 mg NOW STAT PO 05/31/17 17:55 05/31/17 17:56 DC 05/31/17 18:11 12.5 MG ECG Per My Interpretation Indication: SOB/dyspnea Rate (beats per minute): 70 Rhythm: normal sinus Findings: no acute ischemic change, no ectopy, other (normal axis, normal intervals) ED Course 1743: The patient was evaluated in room C6. A complete history and physical exam was performed. 1753: DuoNeb 3 ml INH. 1754: Lopressor Tab 12.5 mg PO. 1932: I reevaluated and updated the patient. Blood pressure is improved, however patient had recurrence of chest pain as well as shortness of breath with ambulatory trial here. Not overtly hypoxic. 2109: Patient updated on CT results. 2129: Discussed the case with Dr. Johnson, [facility] physician group hospitalist, for additional evaluation and treatment. Medical Decision Differential diagnoses includes but is not limited to pneumonia, bronchitis, COPD/Asthma exacerbation, pneumothorax, pulmonary embolism, congestive heart failure, acute coronary syndrome Patient with worsening symptoms over the last 3 weeks that are mostly prompted by exertion and could potentially be the patient's anginal equivalent. Patient with significant history of CAD status post CABG. Patient's routine medical care is typically provided through the OR, and we do not have access to any of his prior records. Patient states he has not seen cardiology since his immediate post CABG follow-up. Patient denies any other recent changes to medications, diet, or routine. Patient with known COPD however not currently smoking. Patient states symptoms not consistent with a COPD exacerbation. No fevers or chills, no change in sputum. Patient states he is most notably short of breath with exertion and with lying flat. Patient with no other symptoms to suggest congestive heart failure. No evidence of pneumonia or other infectious etiology. No evidence of effusion. Patient well-appearing at rest and without symptoms. Vital signs stable throughout. Patient's labs and imaging reassuring. Doubt occult vascular etiology. Patient compliant with medications and breathing treatments. Concern for ACS/unstable angina in this patient post CABG with no ability to arrange close follow-up through the OR with his chart computer. Given my concerns, I discussed the case with hospitalist for additional evaluation and treatment. Medication Reconcilliation Current Medication List: was personally reviewed by me Blood Pressure Screening Patient's blood pressure: Normal blood pressure Impression Primary Impression: Chest pain Additional Impressions: Dyspnea COPD (chronic obstructive pulmonary disease) Scribe Attestation The scribe's documentation has been prepared under my direction and personally reviewed by me in its entirety. I confirm that the note above accurately reflects all work, treatment, procedures, and medical decision making performed by me. Departure Information Dispostion Being Evaluated By Hospitalist Prescriptions Metoprolol Tartrate (LOPRESSOR) 25 Mg Tab 25 MG PO BID for 30 Days, #60 TAB Prov: Eevns Reeves MD 06/01/17 Referrals Sudha Vasquez C.R.N.P. (PCP) Patient Instructions My [facility] Problem Qualifiers Primary Impression: Chest pain Chest pain type: unspecified Qualified Codes: R07.9 - Chest pain, unspecified Additional Impressions: Dyspnea Dyspnea type: dyspnea on exertion Qualified Codes: R06.09 - Other forms of dyspnea COPD (chronic obstructive pulmonary disease) COPD type: unspecified COPD Qualified Codes: J44.9 - Chronic obstructive pulmonary disease, unspecified
[2017-05-31] MEDS ORDERED: OPTIRAY 320 IV PRN (20:00)
--- NOTE | 2017-05-31 20:27 | DIAGNOSTIC IMAGING REPORT ---
CT SCAN OF THE BRAIN WITHOUT IV CONTRAST CLINICAL HISTORY: Headache. Hypertension. COMPARISON STUDY: No priors. TECHNIQUE: Unenhanced axial CT scan of the brain is performed from the vertex to the skull base. A dose lowering technique was utilized adhering to the principles of ALARA. CT DOSE: 537.48 mGy.cm FINDINGS: Brain parenchyma: The brain parenchyma is normal in appearance. There is no hemorrhage, mass effect, or evidence of acute territorial ischemia by CT criteria. Davenport-white matter is preserved. No extra-axial fluid collection is seen. Ventricles, sulci, cisterns: Normal in configuration. Intracranial vasculature: There is mild atherosclerotic calcification of the cavernous carotid and vertebral arteries. Calvarium: Unremarkable. Sinuses and mastoids: A tiny retention cyst is noted in the right sphenoid sinus. The remaining visualized paranasal sinuses are clear. The mastoid air cells are well pneumatized. Orbits: The bony orbits are grossly intact. IMPRESSION: There is no hemorrhage, mass effect, or evidence of acute territorial ischemia by CT criteria. Electronically signed by: Roni Dawkins M.D. 05/31/2017 8:25 PM Dictated Date/Time: 05/31/2017 8:24 PM
--- NOTE | 2017-05-31 20:56 | DIAGNOSTIC IMAGING REPORT ---
CT ANGIOGRAM OF THE CHEST CLINICAL HISTORY: Atypical chest pain. COMPARISON STUDY: Chest x-ray dated 05/31/2017. Chest CT scans dated 03/09/2017 and 06/12/2016. TECHNIQUE: Following the IV administration of 102 cc of Optiray 320, CT angiogram of the chest was performed from the upper abdomen to the thoracic inlet utilizing the pulmonary embolus protocol. Images are reviewed in the axial, sagittal, and coronal planes. 3-D MIPS images are created and assessed. IV contrast was administered without complication. A dose lowering technique was utilized adhering to the principles of ALARA. CT DOSE: 517.34 mGy.cm FINDINGS: Thyroid: Imaged portions of the thyroid gland are normal in size and attenuation. Thoracic aorta: The thoracic aorta is normal in caliber and demonstrates bovine variant arch anatomy. No dissection is seen. Pulmonary vasculature: The pulmonary trunk is normal in caliber. There are no filling defects identified in main, lobar, or segmental pulmonary branches to suggest pulmonary embolus. Heart: The patient is status post midline sternotomy. The heart mildly enlarged and without pericardial effusion. The coronary arteries are densely calcified. Lungs and pleural spaces: Evaluation of the lung parenchyma is modestly degraded by motion artifact. No airspace consolidation or pleural effusion is identified. Dependent atelectasis is noted. Scattered calcified granulomas are observed. The trachea and central airways are clear. Mediastinum: There is no mediastinal lymphadenopathy. Leola: Clear. Axillae: There is no axillary lymphadenopathy. Upper abdomen: There is evidence of hepatic steatosis. Cholecystectomy clips are noted. There is a small hiatal hernia. Skeletal structures: The skeletal structures are osteopenic. No lytic or blastic bony lesions are seen. Degenerative change is noted in the shoulders and thoracic spine. IMPRESSION: 1. There is no evidence of pulmonary embolus in the main, lobar, or segmental pulmonary arteries. 2. There is no airspace consolidation or pleural effusion. 3. Mild cardiomegaly. 4. Hepatic steatosis. Electronically signed by: Roni Dawkins M.D. 05/31/2017 8:55 PM Dictated Date/Time: 05/31/2017 8:50 PM
[2017-05-31] MEDS ORDERED: ALUMINUM/MAGNESIUM/SIMETH (MAALOX MAX) 30 ML UDC PO PRN (21:45)
[2017-05-31] MEDS ORDERED: ACETAMINOPHEN 325 MG TAB PO PRN (21:45)
[2017-05-31] MEDS ORDERED: MoRPHine SULFATE 2 MG/ML CARP IV PRN (21:45)
[2017-05-31] MEDS ORDERED: POLYETHYLENE (MIRALAX) 17 GM PACK PO PRN (21:45)
[2017-05-31] MEDS ORDERED: ALBUT/IPRATROP 3MG/0.5MG NEB 3 ML VIAL INH PRN (21:45)
[2017-05-31] MEDS ORDERED: ONDANSETRON INJ 2 MG/ML 2 ML VIAL IV PRN (21:45)
[2017-05-31] MEDS ORDERED: NITROGLYCERIN 0.4 MG SL PER TAB CHARGE SL PRN (21:45)
[2017-05-31] MEDS ORDERED: MAGNESIUM HYDROXIDE SUSP 30 ML UDC PO PRN (21:45)
[2017-05-31] MEDS ORDERED: ZOLPIDEM TARTRATE 5 MG TAB PO PRN (21:45)
[2017-05-31] MEDS ORDERED: ENOXAPARIN 40 MG/0.4 ML SYR SC SCH (22:00)
--- NOTE | 2017-05-31 22:04 | History and Physical ---
History & Physical Date & Time of Service: May 31, 2017 at 21:48 Chief Complaint: High Blood Pressure. Headache And Shortness Of Sridevi Primary Care Physician: Keven Rojas D.O. History of Present Illness Source: patient 61 y/o M Hx HTN, HPL, COPD, CAD - 3V CABG 04/2016. Pt presents with chest pressure and SOB primarily with exertion. States that this has been occurring for over one week where he attempts to exercise and develops CP and progressive SOB. He denies nausea, vomiting or diaphoresis. He denies a productive cough or fever. The pt was provided with nebulizer treatment in the ER and then ambulated. His symptoms of CP and SOB recurred. Initial labs were notable for an elevated D-dimer. A CT chest was negative for PE. Initial troponin and an EKG do not support acute ischemia. Past Medical/Surgical History 1) HTN 2) HPL 3) COPD 4) GERD 5) Acute cholecystitsis 6) Pancreatitis 7) CAD - 3V CABG 05/01/16 - JOSE to [place], EVELYNE to LAD, SVG to PDA 8) Hepatic steatosis Surgical: 1) CABG 05/01/16 2) Cholecystectomy 04/14/17 Family History Diabetes mellitus FHx: cancer Gallbladder disease Heart disease Hypertension Kidney disease Lung disease Social History Smoking Status: Former Smoker Drug Use: none Marital Status: Occupational Status: retired Allergies Coded Allergies: No Known Allergies (Unverified , 05/31/17) Home Medications Scheduled Atorvastatin (Lipitor), 40 MG PO QAM Cetirizine (Zyrtec), 10 MG PO QAM Fluticasone Furoate-Vilanterol (Breo Ellipta), 1 PUFF INH QAM Lisinopril (Zestril), 5 MG PO QAM Metoprolol Tartrate (Lopressor) (Lopressor), 12.5 MG PO BID Omeprazole (Prilosec), 20 MG PO BID Sertraline (Zoloft), 100 MG PO QAM Scheduled PRN Albuterol Sulf (Albuterol Sulfate), 2.5 MG NEB BID PRN for COPD Ipratropium-Albuterol (Combivent Respimat), 1 PUFFS INH QID PRN for PRN Review of Systems Constitutional: No fever, No chills, No sweats Eyes: No worsening of vision ENT: No hearing loss, No unusual epistaxis, No nasal symptoms Respiratory: + shortness of breath, No cough, No sputum, No wheezing Cardiovascular: + chest pain, No PND Abdomen: No pain, No nausea, No vomiting Musculoskeletal: No joint pain Genitourinary - Male: No hematuria, No dysuria Neurologic: No memory loss, No paralysis, No weakness Psychiatric: No depression symptoms Endocrine: No fatigue Hematologic / Lymphatic: No abnormal bleeding/bruising Integumentary: No rash Allergic / Immunologic: No environmental allergies Physical Exam Vital Signs Date Time Temp Pulse Resp B/P (MAP) Pulse Ox O2 Delivery O2 Flow Rate FiO2 05/31/17 19:43 74 18 118/93 95 Room Air 05/31/17 18:54 84 22 94 Room Air 05/31/17 18:30 77 20 143/93 93 Room Air 05/31/17 18:13 80 20 117/79 99 Nebulizer 05/31/17 14:25 36.4 72 18 150/99 98 Room Air General Appearance: WD/WN, no apparent distress Head: normocephalic Eyes: normal inspection ENT: normal ENT inspection, pharynx normal Neck: supple, no JVD Respiratory/Chest: chest non-tender, lungs clear, normal breath sounds Cardiovascular: regular rate, rhythm, no edema Abdomen/GI: normal bowel sounds, non tender, soft Back: normal inspection, no CVA tenderness Extremities/Musculoskelatal: normal inspection, no calf tenderness, normal capillary refill Neurologic/Psych: mobile security architect II-XII nml as tested, no motor/sensory deficits, alert, oriented x 3 Skin: normal color Diagnostics Laboratory Results Results Past 24 Hours Test 05/31/17 14:30 05/31/17 14:39 05/31/17 18:45 Range/Units White Blood Count 9.04 4.8-10.8 K/uL Red Blood Count 5.39 4.7-6.1 M/uL Hemoglobin 16.3 14.0-18.0 g/dL Hematocrit 46.3 42-52 % Mean Corpuscular Volume 85.9 80-100 fL Mean Corpuscular Hemoglobin 30.2 25-34 pg Mean Corpuscular Hemoglobin Concent 35.2 32-36 g/dl RDW Standard Deviation 42.8 36.4-46.3 fL RDW Coefficient of Variation 13.7 11.5-14.5 % Platelet Count 181 130-400 K/uL Mean Platelet Volume 10.1 7.4-10.4 fL Prothrombin Time 10.4 9.0-12.0 SECONDS Prothromb Time International Ratio 1.0 0.9-1.1 Activated Partial Thromboplast Time 24.8 21.0-31.0 SECONDS Partial Thromboplastin Ratio 1.0 Sodium Level 142 136-145 mmol/L Potassium Level 3.3 3.5-5.1 mmol/L Chloride Level 105 98-107 mmol/L Carbon Dioxide Level 26 21-32 mmol/L Anion Gap 11.0 3-11 mmol/L Blood Urea Nitrogen 10 7-18 mg/dl Creatinine 1.11 0.60-1.40 mg/dl Est Creatinine Clear Calc Drug Dose 79.5 ml/min Estimated GFR () 83.2 Estimated GFR (Non- 71.8 BUN/Creatinine Ratio 8.6 10-20 Random Glucose 91 70-99 mg/dl Calcium Level 8.6 8.5-10.1 mg/dl Total Bilirubin 0.8 0.2-1 mg/dl Aspartate Amino Transf (AST/SGOT) 37 15-37 U/L Alanine Aminotransferase (ALT/SGPT) 59 12-78 U/L Alkaline Phosphatase 89 45-117 U/L Total Creatine Kinase 54 39-308 U/L Creatine Kinase MB 0.7 0.5-3.6 ng/ml Creatine Kinase MB Ratio 1.3 0-3.0 Total Protein 7.3 6.4-8.2 gm/dl Albumin 3.9 3.4-5.0 gm/dl Globulin 3.4 2.5-4.0 gm/dl Albumin/Globulin Ratio 1.1 0.9-2 Bedside Troponin I < 0.030 0-0.045 ng/ml D-Dimer 570 0-500 ug/L FEU Pro-B-Type Natriuretic Peptide 299 0-900 pg/ml Diagnostic Radiology CTA - no acute findings EKG NSR - no significant changes from previous Impression Assessment and Plan 61 y/o M Hx HTN, HPL, COPD, CAD - 3V CABG 04/2016. Pt presents with chest pressure and SOB primarily with exertion. States that this has been occurring for over one week where he attempts to exercise and develops CP and progressive SOB. He denies nausea, vomiting or diaphoresis. He denies a productive cough or fever. The pt was provided with nebulizer treatment in the ER and then ambulated. His symptoms of CP and SOB recurred. Initial labs were notable for an elevated D-dimer. A CT chest was negative for PE. Initial troponin and an EKG do not support acute ischemia. 1) CP/SOB - exertional with history of CAD - we will monitor on telemetry - cont ASA, Statin, B-diane - NTG/Morphine PRN - considering his history, we will consult cardiology regarding additional testing AM. 2) HTN - cont Lisinopril, Metoprolol 3) HPL - cont Statin 4) COPD - no evidence of acute exacerbation - cont nebs as needed Full code - Lovenox prophylaxis Total time for this admit including review of labs, meds, imaging, records - discussion with pt and ER attending - 36 min Resuscitation Status VTE Prophylaxis Will order VTE Prophylaxis: Yes
[2017-05-31 22:24] VITALS: BP 116/77; PULSE 61; TEMP 36.2; O2SAT 94; Ht 177.8 cm; Wt 87.0 kg
[2017-05-31 22:30] VITALS: O2SAT 95
[2017-05-31] MEDS ORDERED: IV FLUIDS COMPLETED PRN (23:00)
[2017-06-01] MEDS: D5NSS + 20MEQ KCL 1,000 ML IV SCH ×2 (00:06→10:14)
[2017-06-01 04:34] VITALS: BP 149/87; PULSE 64; TEMP 36.5; O2SAT 94
[2017-06-01 07:06] VITALS: BP 159/88; PULSE 70; TEMP 36.7; O2SAT 95
[2017-06-01] MEDS ORDERED: PANTOprazole SOD 40 MG TAB PO SCH (09:00)
[2017-06-01] MEDS ORDERED: METOPROLOL TARTRATE 25 MG TAB PO SCH ×2 (09:00→21:00)
[2017-06-01] MEDS ORDERED: POTASSIUM CHLORIDE 20 MEQ TABCR PO SCH (09:00)
[2017-06-01] MEDS ORDERED: ATORVASTATIN 40 MG TAB PO SCH (09:00)
[2017-06-01] MEDS ORDERED: LISINOPRIL 5 MG TAB PO SCH (09:00)
[2017-06-01] MEDS ORDERED: CETIRIZINE HCL 10 MG TAB PO SCH (09:00)
[2017-06-01] MEDS ORDERED: SERTRALINE HCL 100 MG TAB PO SCH (09:00)
[2017-06-01 09:08] LABS: HEMATOCRIT 41.8 % (42-52); HEMOGLOBIN 14.4 g/dL (14.0-18.0); MEAN CELL VOLUME 86.4 fL (80-100); MEAN CORPUSCULAR HEMOGLOBIN 29.8 pg (25-34); MEAN CORPUSCULAR HGB CONC 34.4 g/dl (32-36); MEAN PLATELET VOLUME 9.8 fL (7.4-10.4); PLATELET COUNT 147 K/uL (130-400); RED CELL DISTRIBUTION WIDTH CV 13.9 % (11.5-14.5); RED CELL DISTRIBUTION WIDTH SD 43.7 fL (36.4-46.3); WHITE BLOOD COUNT 6.92 K/uL (4.8-10.8)
[2017-06-01 09:40] LABS: CALCIUM 8.3 mg/dl (8.5-10.1); CREATININE 1.18 mg/dl (0.60-1.40); POTASSIUM 4.4 mmol/L (3.5-5.1)
[2017-06-01] MEDS ORDERED: REGADENOSON 0.4 MG/5 ML SYR ONE (11:46)
--- NOTE | 2017-06-01 12:29 | CARDIOLOGY CONSULTATION ---
DATE OF CONSULTATION: 06/01/2017 CARDIOLOGY CONSULT NOTE CONSULTATION REQUESTED BY: Dr. Johnson. REASON FOR CONSULTATION: Chest pain, history of coronary artery disease. HISTORY OF PRESENT ILLNESS: Mr. Mckeon is a 61-year-old man with a history of coronary artery disease, status post 3-vessel CABG in April, (JOSE to ramus, EVELYNE to LAD, vein graft to PDA), COPD, GERD, hypertension, prior gallstone pancreatitis, status post recent cholecystectomy, who was admitted yesterday in the setting of exertional shortness of breath and intermittent chest pain. The patient was most recently hospitalized in February 2017 for gallstone pancreatitis. At that time, he was seen by Cardiology and cleared for planned surgery. EKG and cardiac enzymes were unremarkable. Since that time, he has noted intermittent exertional shortness of breath. Occasionally, this is associated with some chest tightness. He denies having prior similar symptoms even prior to his bypass surgery. In addition, he notes symptoms of orthopnea as well as some mild lower extremity edema. He also endorses some flushing, which occurs at night. He denies any fevers or chills. He does report occasional URI symptoms, he thinks he has allergies. He presented to the ED yesterday, was initially hypertensive with blood pressures up in the 150s/90s, was satting in the high 90s on room air. Initial EKG was unchanged from prior. Chest x-ray showed no acute cardiopulmonary process. Head CT was negative and chest CTA showed no evidence of PE, no significant acute cardiopulmonary process. PAST MEDICAL HISTORY: 1. Coronary artery disease, status post 3-vessel CABG on 05/01/[address] Diego at the [facility]. 2. Hypertension. 3. Dyslipidemia. 4. COPD. 5. History of prior tobacco abuse. 6. GERD. 7. History of allergic rhinitis. 8. Depression. 9. Gallstone pancreatitis, status post cholecystectomy in 03/2017. SOCIAL HISTORY: He lives in [place]. He is a former smoker, quit more than 10 years ago. Denies heavy alcohol or illicit drug use. He has not worked in the last year or so with his comorbidities. FAMILY HISTORY: Noncontributory due to the patient's own disease. HOME MEDICATIONS: Include albuterol inhaler, atorvastatin 40, Zyrtec, Breo inhaler, Combivent inhaler, lisinopril 5 mg, metoprolol 12.5 b.i.d., omeprazole 20 mg b.i.d., and sertraline. REVIEW OF SYSTEMS: A 10-point review of systems completed and otherwise negative unless mentioned in the HPI. PHYSICAL EXAMINATION: VITAL SIGNS: Temperature 36.7, pulse 70, blood pressure 159/88, satting 94% on room air. GENERAL: The patient appears comfortable, in no acute distress. HEENT: His sclerae are anicteric. His oropharynx is clear. His mucous membranes are moist. NECK: His neck is supple with no lymphadenopathy. He has no jugular venous distention. LUNGS: His lungs are clear to auscultation bilaterally. CARDIAC: He has distant heart sounds, but they are regular with no appreciable murmurs. ABDOMEN: His abdomen is soft, nontender. EXTREMITIES: Warm with no significant lower extremity edema. He has intact distal pulses. SKIN: His skin shows no rashes or lesions. NEUROLOGIC EXAMINATION: His neuro exam is nonfocal. PSYCHIATRIC: He is alert and oriented, appropriate. DATA: Sodium 143, potassium of 4.4, BUN of 12, creatinine of 1.2. Troponins have been negative x3. His proBNP was 299. Hemoglobin of 16.3, platelets of 181. His initial D-dimer was positive at 570. IMAGING: As discussed in HPI. Chest x-ray showed normal sinus rhythm at a ventricular rate of 70. There were nonspecific ST changes, unchanged from prior EKG. Telemetry reviewed, no significant events. IMPRESSION AND PLAN: 1. Exertional dyspnea, chest pain. 2. History of coronary artery disease, status post 3-vessel CABG in 04/2016. 3. Hypertension. 4. Dyslipidemia. 5. History of chronic obstructive pulmonary disease. 6. History of prior gallstone pancreatitis, status post cholecystectomy. Mr. Mckeon is here with months of new exertional shortness of breath and intermittent chest tightness. His initial cardiac workup has been unremarkable but with the patient's known coronary disease, feel that further risk stratification is warranted to rule out high risk disease and we will proceed with an exercise SPEC T later this afternoon. We will also obtain an echocardiogram to reassess LV function and cardiac filling pressures. In the interim, would continue on his home medications. I would titrate up his home lisinopril and metoprolol for improved blood pressure control. At this point, he does not appear to be grossly volume overloaded and no indication for additional diuretic. Long-term, we would continue patient on home aspirin now that he is more than one year out from his surgery and can discontinue Plavix. We will continue to follow with the patient while in the hospital. Thank you for consultation. SHANIQUA
--- NOTE | 2017-06-01 16:17 | Hospitalist Progress Note ---
Hospitalist Progress Note Date of Service Jun 01, 2017. (Shey Banda .MIGUEL ANGEL) Subjective Pt evaluation today including: conversation w/ patient, conversation w/ family ( at bedside), physical exam, chart review, lab review, review of inpatient medication list Pain: None PO Intake: Tolerating PO diet Voiding: no voiding problems Patient reports feeling well. He denies any chest pain currently. He does note dyspnea on exertion and orthopnea which has been ongoing. He denies any sweats , numbness, tingling, nausea and vomiting. The patient denies fevers, chills, sweats, chest pain, palpitations, claudication, cough, wheezing, nausea, vomiting, abdominal pain, dysuria, hematuria, urinary retention, paralysis, weakness, numbness and tingling. Additional Comments: See HPI for pertinent positives and negatives. All other systems reviewed and negative. (Shey Banda, TAMERAC) Objective Vital Signs Date Time Temp Pulse Resp B/P (MAP) Pulse Ox O2 Delivery O2 Flow Rate FiO2 06/01/17 14:15 Room Air 06/01/17 08:00 Room Air 06/01/17 07:06 36.7 70 16 159/88 (111) 95 Room Air 06/01/17 04:34 36.5 64 20 149/87 (107) 94 Room Air 06/01/17 04:00 Room Air 05/31/17 22:30 80 18 144/85 95 Room Air 05/31/17 22:24 36.2 61 16 116/77 94 Room Air 05/31/17 21:41 66 18 136/91 95 Room Air 05/31/17 19:43 74 18 118/93 95 Room Air 05/31/17 18:54 84 22 94 Room Air 05/31/17 18:30 77 20 143/93 93 Room Air 05/31/17 18:13 80 20 117/79 99 Nebulizer (Shey Banda PA-C) Physical Exam Notes: General appearance: Well-developed, well-nourished, no apparent distress Head: Normocephalic, atraumatic Eyes: Normal inspection, PERRL, EOMI ENT: Normal ENT inspection, hearing grossly normal, pharynx normal Neck: Supple, no JVD, trachea midline Respiratory/Chest: Lungs clear to auscultation, normal breath sounds, no respiratory distress Cardiovascular: Regular rate & rhythm, no gallop, no murmur Abdomen/GI: Normal bowel sounds, non-tender, soft Extremities/Musculoskeletal: Normal inspection, no calf tenderness, no pedal edema Neurological/Psych: Alert, normal mood/affect, oriented x 3 Skin: Normal color, warm/dry, no rash (Shey Banda ., PA-C) Laboratory Results Last 24 Hours Test 05/31/17 18:45 05/31/17 23:16 06/01/17 05:11 06/01/17 08:56 D-Dimer 570 ug/L FEU Pro-B-Type Natriuretic Peptide 299 pg/ml Troponin I < 0.015 ng/ml < 0.015 ng/ml White Blood Count 6.92 K/uL Red Blood Count 4.84 M/uL Hemoglobin 14.4 g/dL Hematocrit 41.8 % Mean Corpuscular Volume 86.4 fL Mean Corpuscular Hemoglobin 29.8 pg Mean Corpuscular Hemoglobin Concent 34.4 g/dl RDW Standard Deviation 43.7 fL RDW Coefficient of Variation 13.9 % Platelet Count 147 K/uL Mean Platelet Volume 9.8 fL Sodium Level 143 mmol/L Potassium Level 4.4 mmol/L Chloride Level 109 mmol/L Carbon Dioxide Level 28 mmol/L Anion Gap 7.0 mmol/L Blood Urea Nitrogen 12 mg/dl Creatinine 1.18 mg/dl Est Creatinine Clear Calc Drug Dose 68.7 ml/min Estimated GFR () 77.3 Estimated GFR (Non- 66.7 BUN/Creatinine Ratio 10.0 Random Glucose 113 mg/dl Calcium Level 8.3 mg/dl (Shey Banda ., PA-C) Assessment and Plan 61 y/o male with a history of CAD s/p triple CABG April 2016, HTN, HLD, COPD, and depression who presents with exertional chest pain and shortness of breath. Chest pain, ACS r/o, h/o CAD s/p triple CABG--stable -Admit to telemetry for observation. No acute events overnight. Pt in sinus bradycardia/sinus rhythm with HR 50s-60s -Troponin negative x 3 -Cardiology consulted, appreciate recs: Due to known CAD, will rule out high risk disease with exercise SPECT. Will also obtain echo to reassess LV function. Continue home medications. Titrate up home lisinopril and metoprolol for improved BP control. No indication for diuretic at this time. -Myocardial perfusion study pending -Resting echo pending -Continue ASA, beta diane, statin, SUHA HTN--BP remains elevated -Increase Lopressor to 25 mg PO BID -Continue lisinopril 5 mg PO qd HLD--stable -Continue Lipitor 40 mg PO qd COPD--stable, no exacerbation -Breo non-formulary, replace with Advair while inpatient -Continue DuoNeb prn Depression -Continue Zoloft 100 mg PO qd GERD -Continue PPI DVT prophylaxis -Enoxaparin 40 mg SC q24h Code Status -Level I, FULL RESUSCITATION STATUS Dispo -Will continue to monitor on tele, echo not yet completed and nuclear testing results pending (Shey Banda, MIGUEL ANGEL) I personally interviewed and examined the patient. I agree with history of present illness and physical exam mentioned above, I also performed my own history taking and examination. Past medical history and review of system has been obtained by myself I reviewed all pertinent labs and studies Reviewed current medications I discussed and formulated of the assessment and plan mentioned above. Please refer to the Summary mentioned below. Results of patient myocardial perfusion stress test was within normal limits Also 2D echo was normal Please refer to my full discharge summary, patient will be discharged on an increased dose of metoprolol. General Appearance: not in acute distress Eyes: normal Sclerae, extraocular muscle intact ENT: hearing grossly normal Neck: supple Respiratory/Chest: normal air entry bilateral ,no respiratory distress, no accessory muscle use Cardiovascular: regular rate, rhythm, no murmur Abdomen: non tender, soft, no masses Extremities: no edema musculoskeletal: no significant swelling or inflammation in any joint Neurologic/Psychiatric: Awake alert oriented times place and person moves all extremities sensation intact cranial nerves II-12 appear to be intact Skin: normal color, warm/dry, no rash Evens Rapp MD, [facility] hospitalist group (Evens Reeves MD)
[2017-06-01 16:57] VITALS: BP 138/82; PULSE 75; TEMP 36.8; O2SAT 91
--- NOTE | 2017-06-01 17:11 | ECHOCARDIOGRAM REPORT ---
*NOTICE TO RECEIVING CONSTITUTION PARTY AGENCY This information is strictly Confidential and protected under [place] law. [place] law prohibits you from making any further disclosure of this information unless further disclosure is expressly permitted by the written consent of the person to whom it pertains or is authorized by law. A general authorization for the release of medical or other information is not sufficient for this purpose. Hospital accepts no responsibility if the information is made available to any other person, INCLUDING THE PATIENT. Interpretation Summary * Name: ANASTASIA CONTI Study Date: 06/01/2017 04:04 PM BP: 159/88 mmHg * Patient Location: [facility]\S\N285\S\2 HR: 70 * : 1955 (M/d/yyyy) Gender: Male Height: 70 in * Age: 61 yrs Ethnicity: [place] Weight: 191 lb * Ordering Physician: Santiago Ye * Referring Physician: Self, Referred * Performed By: Amanda Pinto RDCS * * Reason For Study: Chest pain * BSA: 2.0 m2 * -- Conclusions -- * 1. Normal LV size. Normal LV wall thickness. * 2. Normal LV systolic function. LVEF 60-65%. Abnormal septal motion consistent with postoperative state. * 3. Normal RV size, borderline RV dysfunction * 4. No significant valvular pathology. * 5. Normal estimated PA and RA pressures. * 6. No prior studies for comparison. Procedure Details * A complete two-dimensional transthoracic echocardiogram was performed (2D, M-mode, Doppler and color flow Doppler). Left Ventricle * The left ventricle is grossly normal size. * There is normal left ventricular wall thickness. * Ejection Fraction = 60-65%. * Septal motion is consistent with post-operative state. Right Ventricle * The right ventricle is grossly normal size. * The right ventricular systolic function is borderline reduced. Atria * The left atrial size is normal. * Right atrial size is normal. * No ASD detected; PFO is not assessed. Mitral Valve * The mitral valve is grossly normal. * There is no mitral valve stenosis. * There is trace mitral regurgitation. Tricuspid Valve * The tricuspid valve is not well visualized, but is grossly normal. * There is no tricuspid stenosis. * Significant tricuspid regurgitation is absent. Aortic Valve * The aortic valve opens well. * The aortic valve is trileaflet. * No hemodynamically significant valvular aortic stenosis. * There is no significant aortic regurgitation. Pulmonic Valve * The pulmonary valve is inadequately visualized, but the Doppler data is adequate for interpretation. * There is no pulmonic valvular stenosis. * There is no significant pulmonary regurgitation. Great Vessels * The aortic root and proximal ascending aorta are normal sized. Pericardium/Pleural * There is no pericardial effusion. Great Vessels * Normal inferior vena cava size and collapsability with sniff indicates a normal right atrial pressure of 3 mmHg MMode 2D Measurements and Calculations IVSd 0.90 cm LVIDd 3.5 cm LVIDs 2.3 cm LVPWd 1.0 cm IVS/LVPW 0.89 FS 33.0 % EDV(Teich) 49.5 ml ESV(Teich) 18.5 ml EF(Teich) 62.6 % EDV(cubed) 41.4 ml ESV(cubed) 12.5 ml EF(cubed) 69.9 % LV mass(C)d 94.9 grams LV mass(C)dI 46.4 grams/m\S\2 SV(Teich) 31.0 ml SI(Teich) 15.1 ml/m\S\2 SV(cubed) 28.9 ml SI(cubed) 14.1 ml/m\S\2 Ao root diam 3.3 cm Ao root area 8.7 cm\S\2 ACS 2.0 cm LA dimension 2.3 cm asc Aorta Diam 3.2 cm LA/Ao 0.70 LVOT diam 2.0 cm LVOT area 3.1 cm\S\2 LVAd ap4 21.2 cm\S\2 LVLd ap4 6.9 cm EDV(MOD-sp4) 53.2 ml EDV(sp4-el) 55.6 ml LVAs ap4 12.1 cm\S\2 LVLs ap4 5.7 cm ESV(MOD-sp4) 23.1 ml ESV(sp4-el) 21.6 ml EF(MOD-sp4) 56.6 % EF(sp4-el) 61.1 % LVAd ap2 26.7 cm\S\2 LVLd ap2 7.5 cm EDV(MOD-sp2) 79.5 ml EDV(sp2-el) 81.1 ml LVAs ap2 15.3 cm\S\2 LVLs ap2 6.8 cm ESV(MOD-sp2) 29.4 ml ESV(sp2-el) 29.3 ml EF(MOD-sp2) 63.1 % EF(sp2-el) 63.9 % LVLd %diff 8.1 % EDV(MOD-bp) 64.6 ml LVLs %diff 16.0 % ESV(MOD-bp) 28.2 ml EF(MOD-bp) 56.3 % SV(MOD-sp4) 30.2 ml SI(MOD-sp4) 14.7 ml/m\S\2 SV(MOD-sp2) 50.1 ml SI(MOD-sp2) 24.5 ml/m\S\2 SV(MOD-bp) 36.4 ml SI(MOD-bp) 17.8 ml/m\S\2 SV(sp4-el) 34.0 ml SI(sp4-el) 16.6 ml/m\S\2 SV(sp2-el) 51.9 ml SI(sp2-el) 25.3 ml/m\S\2 Doppler Measurements and Calculations MV E max kiki 41.7 cm/sec MV A max kiki 67.9 cm/sec MV E/A 0.61 MV dec time 0.25 sec Ao V2 max 93.0 cm/sec Ao max PG 3.5 mmHg Ao max PG (full) 0.89 mmHg KRISTEN(V,A) 2.7 cm\S\2 KRISTEN(V,D) 2.7 cm\S\2 LV V1 max PG 2.6 mmHg LV V1 max 80.0 cm/sec PA V2 max 76.0 cm/sec PA max PG 2.3 mmHg PA acc slope 408.5 cm/sec\S\2 PA acc time 0.10 sec PI end-d kiki 115.4 cm/sec TR max kiki 77.3 cm/sec PA pr(Accel) 33.1 mmHg
--- NOTE | 2017-06-01 17:13 | MYOCARDIAL PERFUSION SCAN ---
NUCLEAR STRESS REPORT. STUDY TITLE: ONE-DAY NUCLEAR MEDICINE TECHNETIUM-99M CARDIOLITE MYOCARDIAL PERFUSION SCAN. Indication: history of coronary artery disease status post 3-vessel bypass surgery, new onset exertional chest discomfort and shortness of breath. Baseline EKG shows sinus rhythm with no significant ST abnormalities, ventricular rate of 71. Stress EKG: Heart rate sujatha from 71 to 144 representing 98% of maximum predicted heart rate. Blood pressure sujatha from 152/92 to 192/96. The patient exercised for a total of 10 minutes and 9 seconds achieving 13.4 METs. There was no exercise-induced ST changes. No exercise-induced arrhythmias. The patient did endorse minimal left-sided chest ache at peak stress which resolved quickly in recovery. TECHNIQUE: For the stress portion of the study 30.9 mCi of technetium-99m Cardiolite IV was injected at 1322 on 06/01/2017. Twenty minutes following the injection, imaging of the heart was performed in multiple projections. For the rest portion of the study, 11.3 mCi of technetium-99m Cardiolite was injected IV at 11:30. One hour following injection, imaging of the heart was performed in the same projections. STUDY FINDINGS: Rotating raw images were reviewed in detail. There was minimal horizontal motion more in the stress images than rest. There was minimal gut/liver uptake impacting the inferior imaging border of the heart. There was no significant extracardiac pathologic uptake. The short axis, vertical long axis, horizontal long axis images were reviewed in detail. There was normal myocardial perfusion with both stress and rest. There was no significant exercise-induced ischemia. LV size was normal with an end-diastolic volume of 55 mL. LV function was normal with a calculated EF of 68%. There was paradoxical septal motion. IMPRESSION: 1. Negative myocardial perfusion study for exercise-induced ischemia at 90% MPHR. 2. Negative exercise stress EKG for ischemia. 3. Above average functional capacity exercised 10 minutes achieving 13.4 METs. 4. Appropriate hemodynamic response to exercise. Minimal chest discomfort at peak exercise, resolved quickly with recovery. 5. Normal left ventricular size and function, calculated EF of 68% with paradoxical septal motion. [facility]
[2017-06-01] MEDS ORDERED: LPR25 PO (18:35)
--- NOTE | 2017-06-01 18:36 | Discharge Instructions ---
Discharge Instructions Date of Service Jun 01, 2017. Admission Reason for Admission: Chest Pain Discharge Discharge Diagnosis / Problem: musculoskeletal chest pain Discharge Goals Goal(s): Decrease discomfort Activity Recommendations Activity Limitations: resume your previous activity . Current Hospital Diet Patient's current hospital diet: AHA Diet (Heart Healthy) Discharge Diet Recommended Diet: Low Sodium Diet (2gm Na) Pending Studies Studies pending at discharge: no Laboratory Results Lipid Panel Test 03/09/17 15:43 Range/Units Triglycerides Level 263 H 0-150 mg/dl Medical Emergencies . Who to Call and When: Medical Emergencies: If at any time you feel your situation is an emergency, please call 911 immediately. . Non-Emergent Contact Non-Emergency issues call your: Primary Care Provider . . "Provider Documentation" section prepared by Evens Brito. .
--- NOTE | 2017-06-01 18:45 | Discharge Summary ---
Discharge Summary Date of Service Jun 01, 2017. Discharge Summary Admission Date: May 31, 2017 at 21:45 Discharge Date: Jun 01, 2017 Discharge Disposition: Home Principal Diagnosis: chest pain, ACS ruled out with negative stress test likely msculoskeletal Problems/Secondary Diagnoses: CAD S/P CABG HTN--BP remains elevated HLD--stable COPD--stable, no exacerbation Depression Medication Reconciliation New Medications: Metoprolol Tartrate (Lopressor) 25 Mg Tab 25 MG PO BID for 30 Days, #60 TAB Continued Medications: Albuterol Sulf (Albuterol Sulfate) 2.5 Mg/3 Ml Nebu 2.5 MG NEB BID PRN for COPD Atorvastatin (Lipitor) 40 Mg Tab 40 MG PO QAM, TAB Cetirizine (Zyrtec) 10 Mg Tab 10 MG PO QAM, TAB Fluticasone Furoate-Vilanterol (Breo Ellipta) 1 Inh Inh 1 PUFF INH QAM 100-25 MCG Ipratropium-Albuterol (Combivent Respimat) 1 Aer Aer 1 PUFFS INH QID PRN for PRN, INH Lisinopril (Zestril) 5 Mg Tab 5 MG PO QAM, TAB Omeprazole (Prilosec) 20 Mg Capcr 20 MG PO BID, CAP Sertraline (Zoloft) 100 Mg Tab 100 MG PO QAM, TAB Discontinued Medications: Metoprolol Tartrate (Lopressor) (Lopressor) 25 Mg Tab 12.5 MG PO BID, TAB Discharge Exam Review of system Constitutional: No fever / no chills / no sweats / no weakness / no fatigue Eyes: no blurring of vision / no eye pain / no discharge / no redness ENT: no hearing loss / no epistaxis /no swallowing problems Respiratory: no cough / no wheezing / no SOB / no hemoptysis Cardiovascular: no Chest pain / no lower extremity edema / no palpitation Abdomen: no pain / no nausea / no vomiting / no constipation Musculoskeletal: no joint pain / no muscle pain / no joint swelling Genitourinary: no dysuria / no incontinence / no urinary retention Neurologic: no focal weakness / no numbness/tingling / no ataxia Psychiatric: no depression symptoms / no anxiety / no insomnia Endocrine: no excessive thirst / no excessive urination Hematologic: no abnormal bleeding / no bruising / no LN swelling Skin: No rash / no pallor Physical examination General patient appears to be comfortable, not in acute distress HEENT: Atraumatic , normocephalic /no jaundice /no pallor /anicteric /no dry mucous membrane /normal external ear inspection Neck: Supple /no swelling /central trach Heart: S1/S2 normal/regular rate and rhythm/no gallop /no rub /no murmur Lungs: Clear to auscultation bilaterally/normal chest with expansion/no rhonchi/ no rales/no wheezing/no use of accessory muscles of respiration Abdomen: Soft/nontender/no guarding/no rebound/no organomegaly/no pulsatile mass Musculoskeletal: No swelling/no edema/no tenderness/normal range of motion Neuro exam: Awake alert oriented 3/cranial nerves II through XII appear to be intact/sensation intact/moves all extremities/no abnormal movements Psychiatric evaluation: No depressed mood/normal affect Skin: No rash on exposed skin area/no erythema Extremity: Normal pulse/no pitting edema/no clubbing or cyanosis Endocrine/lymphatic: No obvious lymphadenopathy /no lymphedema Hospital Course 61 y/o male with a history of CAD s/p triple CABG April 2016, HTN, HLD, COPD, and depression who presents with exertional chest pain and shortness of breath. Patient was admitted under observation to rule out ACS Status post 2D echo results attached below Interpretation Summary * Name: ANASTASIA CONTI Study Date: 06/01/2017 04:04 PM BP: 159/88 mmHg * Patient Location: [facility]\85\S\2 HR: 70 * : 1955 (M/d/yyyy) Gender: Male Height: 70 in * Age: 61 yrs Ethnicity: [place] Weight: 191 lb * Ordering Physician: Santiago Ye * Referring Physician: Self, Referred * Performed By: Amanda Pinto RDCS * * Reason For Study: Chest pain * BSA: 2.0 m2 * -- Conclusions -- * 1. Normal LV size. Normal LV wall thickness. * 2. Normal LV systolic function. LVEF 60-65%. Abnormal septal motion consistent with postoperative state. * 3. Normal RV size, borderline RV dysfunction * 4. No significant valvular pathology. * 5. Normal estimated PA and RA pressures. * 6. No prior studies for comparison. Also patient had a securities attorney consult Status post stress test , Myocardial perfusion study was within normal limits with no signs of ischemia. Patient has no chest pain, comfortable. Was found to have elevated blood pressure and his metoprolol was increased from 12.5 twice daily to 25 mg twice daily. Cleared for discharge by securities attorney. Will be discharged and follow-up with his primary care physician regarding his blood pressure Total Time Spent: Greater than 30 minutes This includes examination of the patient, discharge planning, medication reconciliation, and communication with other providers. Discharge Instructions Please refer to the electronic Patient Visit Report (Discharge Instructions) for additional information.
[2017-06-01 18:53] VITALS: BP 138/82; PULSE 75; TEMP 36.8; O2SAT 91
[2017-06-01] MEDS ORDERED: FLUTICASONE/SALMETEROL 250/50 (ADVAIR) 14 PUFF/1 INHALER INH SCH (21:00)
== END 2017-06-01 19:15 | disposition home or self-care (01) ==
LOC: C.EDB 14:23 → C.MED 21:45 → ENRESERV 21:54 → CANRESERV 21:54 → ENRESERV 22:13 → C.MED 22:39 → UNDOADMOB 22:57 → C.MED 22:57 → UNDODEPER 23:27
PROVIDERS: ADMIT Internal Medicine; ATTEND Internal Medicine
DX: R07.89 Other chest pain (principal); I25.10 Atherosclerotic heart disease of native coronary artery without angina pectoris; I10 Essential (primary) hypertension; E78.5 Hyperlipidemia, unspecified; J44.9 Chronic obstructive pulmonary disease, unspecified; F32.9 Major depressive disorder, single episode, unspecified; K21.9 Gastro-esophageal reflux disease without esophagitis; Z95.5 Presence of coronary angioplasty implant and graft; Z90.49 Acquired absence of other specified parts of digestive tract; Z87.891 Personal history of nicotine dependence; Z87.442 Personal history of urinary calculi; Z83.3 Family history of diabetes mellitus; Z82.49 Family history of ischemic heart disease and other diseases of the circulatory system; Z83.6 Family history of other diseases of the respiratory system